=== PATIENT | female | born 1970 | race Caucasian/White ===

== ENCOUNTER 2020-05-30 09:15 | Outpatient (REF) | payer MEDICARE, OTHER, SELFPAY ==
--- NOTE | ~2020-05-30 | MM_ITS ---
EXAMINATION: MM SCREENING DIGITAL BREAST TOMOSYNTHESIS, BILATERAL CLINICAL INFORMATION: Screening. Asymptomatic. The lifetime risk of breast cancer based on the Tyrer-Cuzick Model is 17%. COMPARISON: Outside mammography: 03/04/2017, 02/18/2015, 02/13/2014 ([facility]). TECHNIQUE: Digital breast tomosynthesis is performed in both the craniocaudal and mediolateral oblique views along with computer-aided detection (CAD). Synthesized 2D images are generated from the tomosynthesis. FINDINGS: There are scattered areas of fibroglandular density (ACR BI-RADS breast composition Category b). Parenchymal pattern is similar to prior outside exams. There are no significant masses, abnormal calcifications, or other abnormalities. No developing density. No significant changes. MM/MM tomosynthesis screening BI IMPRESSION: No mammographic evidence of malignancy. ASSESSMENT: BI-RADS 1: Negative RECOMMENDATION: Routine annual mammography screening. This patient's information was entered into a reminder system with a target due date for their next mammogram.
== END 2020-05-30 09:16 | disposition home or self-care (01) ==
LOC: HO.MAMMO 09:15
PROVIDERS: PCP Internal Medicine; Visit Provider Internal Medicine
DX: Z12.31 Encounter for screening mammogram for malignant neoplasm of breast (principal)
CPT/HCPCS: 77063; 77067

== ENCOUNTER → 2020-08-29 08:14 | Outpatient (BNVA) | payer OTHER, SELFPAY | PROVIDERS: PCP Internal Medicine; Referring Provider Internal Medicine; Visit Provider Physician Assistant | DX: K59.09 Other constipation (principal); R74.01 Elevation of levels of liver transaminase levels; R10.11 Right upper quadrant pain | CPT/HCPCS: 99202 ==

== ENCOUNTER 2020-10-29 12:32 | Outpatient (REF) | payer MEDICARE, MEDICAID, SELFPAY ==
--- NOTE | ~2020-10-29 | US_ITS ---
EXAMINATION: US ABDOMEN COMPLETE CLINICAL INFORMATION: Right upper quadrant pain. COMPARISON: CT abdomen 09/06/2006. TECHNIQUE: Real-time imaging of the abdominal viscera. FINDINGS: PANCREAS: Normal. ABDOMINAL AORTA: The proximal, mid, and distal segments are normal in caliber. INFERIOR VENA CAVA: Visualized portions are normal. LIVER: The liver is normal in size. The liver contour is normal. There is slightly increased liver echogenicity. No focal hepatic lesion. There is no intrahepatic biliary duct dilatation seen. GALLBLADDER: Gallbladder wall thickness measures 0.21 cm The gallbladder is physiologically distended without evidence of stones, sludge, polyps, wall thickening or pericholecystic fluid. COMMON BILE DUCT: Normal in caliber measuring 0.3 cm in diameter. RIGHT KIDNEY: There is a mild dilated right ureter. No hydronephrosis. No renal calculi or focal parenchymal lesions. The kidney measures 10.7 cm in maximum dimension. LEFT KIDNEY: There is anechoic septated cyst in the midpole measuring 0.90 x 1.1 x 1.1 cm. No hydronephrosis or renal calculi. The kidney measures 10.1 cm in maximum dimension. SPLEEN: Normal. The spleen measures 9.7 cm in maximum dimension. FREE FLUID: None. US/US abdomen complete IMPRESSION: Mild hepatic steatosis without focal lesion seen. Mildly dilated ureter but no obstructive etiology seen on the scan. Septated cyst midpole left kidney
== END 2020-10-29 12:33 | disposition home or self-care (01) ==
LOC: HO.HMGCX 12:32
PROVIDERS: Visit Provider Internal Medicine
DX: R10.11 Right upper quadrant pain (principal)
CPT/HCPCS: 76700

== ENCOUNTER 2020-11-11 08:57 | Day surgery (SDC) | payer MEDICARE, MEDICAID, SELFPAY ==
[2020-11-06 13:17] VITALS: BMI 20.9
--- NOTE | 2020-11-08 12:04 | P.CONAN_ITS ---
Documented by User: Maritza Montes NP 11/08/20 12:04 HPI - Anesthesia Eval Consult details Narrative: 50yo F for Colonoscopy PMFSH Active Problems Active Problems: All Active Problems (Updated 10/07/20 @ 11:34 by Ema Sexton RN) Encounter for screening colonoscopy (Acute) Chronic constipation (Acute) Past Medical History Medical History Anxiety Family History Family History Father Pancreatic cancer Surgical History Surgical History History of esophagogastroduodenoscopy (EGD) Hx of appendectomy Social History Social History Household Members Other:: - 2 kids Alcohol intake: never Patient Tobacco Use Status: Never used Tobacco Advance Directives Information Provided: No Current occupational status: disabled [employer] Allergies Allergy/AdvReac Type Severity Reaction Status Date / Time No Known Allergies Allergy Verified 08/29/20 08:28 Home Medications Medication Instructions Recorded Confirmed Last Taken Type bupropion HCl 300 mg 24 hr tablet, 300 mg PO QAM 08/29/20 11/06/20 Unknown History extended release inhalational spacing device #1 ea 08/29/20 08/29/20 Unknown History lorazepam 1 mg tablet 1 mg PO BID 08/29/20 11/06/20 Unknown History risperidone 1 mg tablet 1 mg PO BEDTIME 08/29/20 11/06/20 Unknown History Exam Exam Date and Time: November 08, 2020 1204 Height,Weight and Vital Signs: Height 5 ft 4 in Weight 55.338 kg Assessment and Plan Assessment Anesthesia Assessment: Chart Reviewed Documented by User: Leticia Hope MD 11/11/20 09:57 PMFSH Past Medical History Medical History Anxiety Family History Family History Father Pancreatic cancer Family history of problems with anesthesia: No Surgical History Surgical History History of esophagogastroduodenoscopy (EGD) Hx of appendectomy History of Problems with Anesthesia: No Social History Social History Household Members Other:: - 2 kids Alcohol intake: never Patient Tobacco Use Status: Never used Tobacco Advance Directives Information Provided: No Current occupational status: disabled Meds Allergies Allergy/AdvReac Type Severity Reaction Status Date / Time No Known Allergies Allergy Verified 08/29/20 08:28 Home Medications Medication Instructions Recorded Confirmed Last Taken Type bupropion HCl 300 mg 24 hr tablet, 300 mg PO QAM 08/29/20 11/06/20 Unknown History extended release inhalational spacing device #1 ea 08/29/20 08/29/20 Unknown History lorazepam 1 mg tablet 1 mg PO BID 08/29/20 11/06/20 Unknown History risperidone 1 mg tablet 1 mg PO BEDTIME 08/29/20 11/06/20 Unknown History Exam Height,Weight and Vital Signs: Height 5 ft 4 in Weight 55.338 kg Vital Signs Temp Pulse Resp BP Pulse Ox 11/11/20 09:18 97.1 F 63 16 118/71 100 Airway Mallampati Class: II TM Dist: >3cm Neck ROM: Full Heart: RRR Lungs: CTAB Assessment and Plan Assessment Anesthesia Assessment: Anesthesia Plan Discussed Final Anesthetic Review Family History of Problems with Anesthesia: No History of Problems with Anesthesia: No NPO: Yes ASA Class: II Final Preanesthetic Review: No Changes in Pt Med Stat, Meds/Allgs Chart Reviewed, Consent Obtained/Reviewed and Anes Risks/Benef Reviewed Patient Risk: Low Procedure Risk: Low Assessment/Block/Sedation in SS: Assess/Block/Sedation-SS Anesthetic Plan Anesthetic Plan: MAC: Disposition: Standard PACU
[2020-11-11 09:03] VITALS: BMI 19.7
[2020-11-11 09:18] VITALS: BP 118/71; PULSE 63; RESP 16; TEMP 36.2; O2SAT 100
--- NOTE | 2020-11-11 09:30 | MHC.SHP ---
Pre-Procedural Eval Section A Date of Service: 11/11/20 The patient is an INPATIENT: No The History & Physical has been completed within 30 days and I have reviewed it.: No Section B Chief Complaint: Screening Details of Present Illness: Colon cancer screening, chronic constipation Relevant Family History (Specify if Yes): Yes Relevant Social History: None Present Medications: see Short Stay Collaborative assessment Medical History: Significant History (Chronic constipation, anxiety) History of Previous Operations: Relevant previous surgery/procedure and date(s) (Status post appendectomy, hx of EGD) Allergies: Allergies Allergy/AdvReac Type Severity Reaction Status Date / Time No Known Allergies Allergy Verified 08/29/20 08:28 Review of Systems Sugical H&P ROS: Negative: Constitution, Cardiovascular and Respiratory and Yes, Specify: Gastrointestinal (chronic constipation) Exam Surgical H&P Exam: Normal: Heart, Normal: Lungs, Normal: Extremities and Normal: Abdomen Plan Diagnosis/Plan: Unchanged I have reviewed the history and physical and performed a pertinent physical examination on my patient. No changes have occurred unless specified.
--- NOTE | 2020-11-11 09:36 | P.OP_ITS ---
Operative Note Operative Note Date of Service: 11/11/20 Narrative: Pre-op diagnosis:?Colon cancer screening, chronic constipation Post-op diagnosis:?other (Diverticulosis) Procedure:? COLONOSCOPY TILL CECUM Consent: Indications for the procedure and potential complications of bleeding, perforation, reaction to medications and missed diagnosis were discussed with the patient and informed consent was obtained. Instrument: Olympus PCF H 190 L variable stiffness pediatric colonoscope Monitoring: Vital signs and clinical assessment, intermittent blood pressure monitoring, continuous EKG monitoring, Pulse oximetry and Carbon Dioxide monitoring were done throughout the procedure. Colon withdrawl time was 12 minutes. Procedure: The patient was placed in the left lateral decubitis position and pre-procedure medications were administered. After a digital rectal examination of the ano-rectum, the video colonoscope was inserted into the rectum and advanced through the colon to the cecum. The colonoscope was slowly withdrawn in a retrograde panoramic fashion and the colon mucosa was carefully examined including a retroflexed view of the rectum. Findings and interventions are described below. Procedure Difficulty: Without difficulty Findings: Terminal Ileum: Not evaluated Cecum:? Normal Ascending Colon:? Normal Transverse Colon:? Normal Descending Colon:? Normal Sigmoid Colon:? Moderate diverticulosis Rectum:? Normal Ano-rectum:? Perianal skin tags Colon preparation: Excellent ? Impression and Post Procedure Diagnosis: Colonoscopy Findings: No polyps were detected. Moderate diverticulosis seen in the sigmoid colon Plan: Await pathology results Patient has an appointment on 11/27/20 in the [facility] with STEPHANIE Thayer. Repeat Colonoscopy in 10 years. Above findings were reviewed with the patient and diverticulosis handout was given in the discharge area Surgeon:?Melo Benz MD Anesthesia:?MAC (Dr Hope) Was an Professor Of Music used for this Procedure?:?Yes Professor Of Music:?Leslie Landin Estimated blood loss (mL):?0 Pathology:?none sent Condition:?stable Disposition:?PACU
[2020-11-11 10:10] VITALS: BP 101/55; PULSE 67; RESP 12; TEMP 36.4; O2SAT 98
[2020-11-11 10:25] VITALS: BP 107/67; PULSE 60; RESP 16; TEMP 36.4; O2SAT 99
== END 2020-11-11 10:54 | disposition home or self-care (01) ==
PROVIDERS: PCP Internal Medicine; Visit Provider Internal Medicine Gastroenterology
PROC: 0DJD8ZZ Inspection of Lower Intestinal Tract, Via Natural or Artificial Opening Endoscopic (ICD-10-PCS; CPT 45378; principal; 2020-11-11 10:10)
DX: Z12.11 Encounter for screening for malignant neoplasm of colon (principal); K57.30 Diverticulosis of large intestine without perforation or abscess without bleeding; K64.4 Residual hemorrhoidal skin tags; K59.09 Other constipation
CPT/HCPCS: G0121

== ENCOUNTER → 2020-11-27 09:50 | Outpatient (BNVA) | payer MEDICARE, MEDICAID, SELFPAY | PROVIDERS: PCP Internal Medicine; Visit Provider Physician Assistant | CPT/HCPCS: Q3014 ==

== ENCOUNTER 2021-06-05 10:16 | Outpatient (REF) | payer MEDICARE, MEDICAID, SELFPAY ==
--- NOTE | ~2021-06-05 | MM_ITS ---
EXAMINATION: MM SCREENING DIGITAL BREAST TOMOSYNTHESIS, BILATERAL CLINICAL INFORMATION: Screening. Asymptomatic. The lifetime risk of breast cancer based on the Tyrer-Cuzick Model is 6.9%. COMPARISON: Mammography: May 30, 2020 and studies dating back to February 13, 2014 TECHNIQUE: Digital breast tomosynthesis is performed in both the craniocaudal and mediolateral oblique views along with computer-aided detection (CAD). Synthesized 2D images are generated from the tomosynthesis. FINDINGS: There are scattered areas of fibroglandular density (ACR BI-RADS breast composition Category b). There are no significant masses, abnormal calcifications, or other abnormalities. About the deep lateral aspect of the right breast there is a grouping of approximately 4 calcifications which are present on prior study May 30 and 2020 and appear to be vascular in nature. MM/MM tomosynthesis screening BI IMPRESSION: There are no significant changes from prior study. ASSESSMENT: BI-RADS 2: Benign RECOMMENDATION: Routine annual mammography screening. This patient's information was entered into a reminder system with a target due date for their next mammogram.
== END 2021-06-05 10:17 | disposition home or self-care (01) ==
LOC: HO.MAMMO 10:16
PROVIDERS: PCP Internal Medicine; Visit Provider Internal Medicine
DX: Z12.31 Encounter for screening mammogram for malignant neoplasm of breast (principal)
CPT/HCPCS: 77063; 77067

== ENCOUNTER 2022-08-26 12:11 | Outpatient (REF) | payer MEDICARE, MEDICAID, SELFPAY ==
--- NOTE | ~2022-08-26 | XR_ITS ---
EXAMINATION: XR KNEE, RIGHT CLINICAL INFORMATION: Pain COMPARISON: None available. TECHNIQUE: Four views of the right knee. FINDINGS: No fracture but there is a trace joint effusion. Alignment is anatomic. Joint spaces are maintained. No abnormal soft tissue calcifications. Minor tibial spine spurring. XR/XR knee RT 3V IMPRESSION: Trace joint effusion. No fracture.
== END 2022-08-26 12:12 | disposition home or self-care (01) ==
LOC: HO.HHCX 12:11
PROVIDERS: Visit Provider General Practice
DX: M25.561 Pain in right knee (principal)
CPT/HCPCS: 73562

== ENCOUNTER 2022-09-21 11:53 | Outpatient (REF) | payer MEDICARE, MEDICAID, SELFPAY ==
[2022-09-21 14:22] LABS: MANUAL DIFF FLAG NO
[2022-09-21 14:34] LABS: Basophils Percent Auto 0.7 % (0-2); Eosinophils Absolute Auto 0.1 X10*3/uL (0.0-0.4); Eosinophils Percent Auto 0.9 % (0-4); Hematocrit 35.8 % (37.0-47.0); Hemoglobin 11.9 g/dl (12.0-16.0); Imm Gran Abs Auto 0.02 X10*3/uL (0.00-0.03); Imm Gran Pct Auto 0.4 % (0.0-0.4); Lymphocytes Absolute Auto 1.3 X10*3/uL (1.2-4.9); Lymphocytes Percent Auto 23.4 % (20-40); Mean Corpuscular HGB Conc 33.2 g/dl (31.0-35.0); Mean Corpuscular Volume 90.2 fL (80.0-98.0); Mean Platelet Volume 9.1 fL (9.4-12.3); Monocytes Absolute Auto 0.4 X10*3/uL (0.1-1.2); Monocytes Percent Auto 7.3 % (2-11); Neutrophils Absolute Auto 3.7 x10*3/uL (2.0-8.3); Neutrophils Percent Auto 67.3 % (45-73); Platelet Count 319 X10*3/uL (160-400); Red Blood Count 3.97 X10*6/uL (4.20-5.50); Red Cell Distribution Width 12.7 % (11.0-16.0); White Blood Count 5.5 X10*3/uL (4.8-10.8)
[2022-09-21 15:19] LABS: Estimated Average Glucose 103 mg/dL; Hemoglobin A1c % 5.2 %
[2022-09-21 15:46] LABS: Alanine Aminotransferase 17 U/L (0-31); Albumin Level 4.5 g/dL (3.5-5.0); Alkaline Phosphatase 65 U/L (39-117); Anion Gap 14 (12-20); Aspartate Amino Transferase 16 U/L (5-31); Bilirubin Total 1.2 mg/dL (0.0-1.0); Blood Urea Nitrogen 12 mg/dL (9-16); Calcium 9.4 mg/dL (8.4-10.2); Carbon Dioxide 23 mmol/L (22-29); Chloride 104 mmol/L (96-108); Cholesterol 214 mg/dL; Estimated Glomerular Filt Rate > 60; Glucose Fasting 81 mg/dL (60-99); HDL Cholesterol 81 mg/dL; LDL Cholesterol Calculated 116 mg/dl; Potassium 4.1 mmol/L (3.3-5.1); Sodium 137 mmol/L (135-145); Total Protein 7.7 g/dL (6.5-8.0); Triglycerides 88 mg/dL
[2022-09-21 15:52] LABS: TSH reflex Free T4 0.28 uIU/mL (0.32-4.0)
[2022-09-21 15:59] LABS: Folate 15.4 ng/mL (> or = 4.0); Vitamin B12 411 pg/mL (200-900)
[2022-09-21 16:22] LABS: Free T4 (Free Thyroxine) 0.82 ng/dL (0.71-1.85)
[2022-09-24 15:47] LABS: HCV Log PCR <1.18 NOT DETECTED Log IU/mL (NOT DETECTED); HepC Viral Load <15 NOT DETECTED IU/mL (NOT DETECTED)
== END 2022-09-21 11:54 | disposition home or self-care (01) ==
LOC: HO.CHCLDS 11:53
PROVIDERS: Visit Provider Internal Medicine
DX: Z00.00 Encounter for general adult medical examination without abnormal findings (principal); R53.83 Other fatigue; R42 Dizziness and giddiness
CPT/HCPCS: 36415; 80053; 80061; 82306; 82607; 82746; 83036; 84439; 84443; 85025; 87522

== ENCOUNTER 2022-10-02 09:07 | Outpatient (AMB) | payer MEDICARE, MEDICAID, SELFPAY ==
--- NOTE | 2022-10-02 09:15 | A.OFFVIS_ITS ---
Intake Vital Signs 10/02/22 09:25 Height 5 ft 2 in Weight 140 lb BMI 25.6 BP 132/80 Blood Pressure Location Lt brachial Position Sitting Intake Visit Reasons: Lipoma of right axilla Intake Note: Patient is seen in office for evaluation and treatment of a lipoma of the right axilla. Patient c/o: lump was removed in 2014 and 5 months later it came back, denies pain, discharge, redness, or any discomfort, did not go back after excision unsure what it was Fire Observer Required: No Accompanied by: Self / Same As Patient Allergies No Known Allergies Allergy (Verified 10/02/22 09:25) Medication List - Last Reconciled 10/02/22 by Franklin Blanco MD bupropion HCl 300 mg PO QAM docusate sodium (Colace) 200 mg (2 x 100 mg) PO BEDTIME docusate sodium (Colace) 200 mg (2 x 100 mg) PO BEDTIME inhalational spacing device As directed lorazepam 1 mg PO BID methylcellulose (laxative) (Citrucel) 500 mg PO BID methylcellulose (laxative) (Citrucel) 500 mg PO BID polyethylene glycol 3350 (Miralax) 17 grams PO DAILY risperidone 1 mg PO BEDTIME HPI HPI Comments History of Present Illness Details 52-year-old female patient presenting for evaluation of a right axillary lipoma. She reports a prior excision in 2014 but reports that the lesion quickly returned. She denies any significant pain, redness, or discharge from the site. The lesion has been gradually increasing in size there for she is requesting re-excision. [facility] Medical History Anxiety Surgical History History of esophagogastroduodenoscopy (EGD) Hx of appendectomy Hx of colonoscopy Family History Father Pancreatic cancer Mother Ovarian cancer Social History Household Members Other:: - 2 kids Alcohol intake: never Patient Tobacco Use Status: Never used Tobacco Current occupational status: disabled Review of Systems Const All systems reviewed & are unremarkable except as noted in HPI and below Denies chills, Denies fever(s), Denies headache(s), Denies poor appetite and Denies weakness ENT Denies headache(s) Card Denies chest pain, Denies irregular heart rhythm, Denies palpitations and Denies dyspnea Resp Denies cough, Denies excessive phlegm production and Denies dyspnea GI Denies abdominal pain, Denies bloating, Denies change in bowel habits, Denies constipation, Denies heartburn, Denies diarrhea, Denies nausea and Denies vomiting Denies urinary frequency Musc Denies back pain, Denies muscle weakness and Denies numbness Skin/Breast Denies changing lesions and Denies unusual bruising Neuro Denies headache(s), Denies numbness, Denies paresthesias and Denies weakness Psych Denies anxiety and Denies depression Endo Denies palpitations Kendrick/Lymph Denies lymphadenopathy Physical Exam Vital Signs: Last Vital Signs BP 132/80 10/02/22 09:25 BMI result Body Mass Index 25.6 Const General: cooperative and no acute distress Nutritional Appearance: well nourished Orientation/consciousness: patient oriented x3 Limitations: no limitations HEENT Head: Yes normocephalic and Yes atraumatic Ears: hearing grossly normal bilaterally Chest Other: Palpable subcutaneous density noted in the right axilla in the posterior axillary line. There is a previous incision just below the palpable lesion. The cyst measures 2 x 1.5 cm and is smooth and mobile in the subcutaneous tissue suggestive of a epidermal inclusion cyst. There is no tenderness or discharge to palpation. Resp Effort & Inspection: normal respiratory effort, no audible wheezes, no cough and no respiratory distress Cardio Jugular venous distension: no JVD GI Inspection: Yes normal to inspection Skin Other: Warm, dry, no rash Neuro General: patient oriented x3 Extrem General: Yes no clubbing, cyanosis or edema Assessment & Plan Assessment & Plan (1) Epidermal inclusion cyst: Code(s): L72.0 - Epidermal cyst Plan 52-year-old female patient presenting with a palpable lesion in the right axilla at the site of a previous lipoma excision. On examination today there is a 2 x 1.5 cm smooth mobile lesion suggestive of an epidermal inclusion cyst. I recommended an excision as a minor surgery under local anesthesia. After discussion of the procedure, risks, and alternatives, she consents to the surgery. Coding Level of Care Code New Pt Level 4 (60532) Diagnoses Epidermal inclusion cyst L72.0
[2022-10-02 09:25] VITALS: BP 132/80; BMI 25.6
== END 2022-10-02 09:37 | disposition home or self-care (01) ==
PROVIDERS: PCP Internal Medicine; Referring Provider Internal Medicine; Visit Provider Surgery
DX: L72.0 Epidermal cyst (principal); D17.21 Benign lipomatous neoplasm of skin and subcutaneous tissue of right arm
CPT/HCPCS: 99204

== ENCOUNTER → 2022-10-02 09:07 | Outpatient (BNVA) | payer MEDICARE, MEDICAID, SELFPAY | PROVIDERS: PCP Internal Medicine; Referring Provider Internal Medicine; Visit Provider Surgery | DX: L72.0 Epidermal cyst (principal) | CPT/HCPCS: 99202 ==

== ENCOUNTER 2022-10-20 10:55 | Outpatient (REF) | payer MEDICARE, MEDICAID, SELFPAY ==
[2022-10-20 11:07] VITALS: BP 104/80; PULSE 75; RESP 16; TEMP 37; O2SAT 99; BMI 24.0
[2022-10-20 11:54] VITALS: BP 119/70; PULSE 72; RESP 16; O2SAT 100
--- NOTE | 2022-10-20 12:29 | P.OP_ITS ---
Operative Note Operative Note Date of Service: 10/20/22 Narrative: Preoperative diagnosis: Right axillary cyst Postoperative diagnosis: Same Procedure: Excision of right axillary cyst Surgeon: Franklin Blanco MD Corner Brace Block Machine Operator: None Anesthesia: Local Indications for procedure: 52-year-old female patient presenting with a round palpable cyst in the right axilla which is increasing in size measuring approximately 1.5 cm in diameter. Operative findings: 1.5 cm epidermal inclusion cyst right axilla Specimen: Epidermal inclusion cyst right axilla Estimated blood loss: Less than 2 mL Complications: None Procedure details: Patient was brought to the minor surgery suite placed in a supine position with her right arm over her head. The site of surgery was confirmed by the patient in the right axilla. After assuring informed consent the skin was prepped with Betadine and draped in a sterile fashion. Local anesthesia was then infiltrated circumferentially around the lesion. An elliptical incision oriented transversely was then created with a 15 blade. This was then carried out through subcutaneous tissue and around the cyst wall. The lesion was then sharply dissected from the surrounding subcutaneous tissue. This was then passed off the table and sent to pathology for further examination. Hemostasis assured using light pressure. The dermis was reapproximated using interrupted 3-0 Polysorb sutures. Skin was then closed using interrupted 4-0 nylon sutures. 2 x 2 gauze and Tegaderm were then applied. The patient tolerated the procedure well. She was discharged home in stable condition.
== END 2022-10-20 10:56 | disposition home or self-care (01) ==
LOC: HO.MS 10:55
PROVIDERS: PCP Internal Medicine; Visit Provider Surgery
PROC: (CPT 11402; principal; 2022-10-20 11:20)
DX: L72.8 Other follicular cysts of the skin and subcutaneous tissue (principal)
CPT/HCPCS: 11402; 88304

== ENCOUNTER → 2022-10-20 10:55 | Outpatient (BNV) | payer MEDICARE, MEDICAID, SELFPAY | PROVIDERS: PCP Internal Medicine; Visit Provider Surgery | DX: L72.0 Epidermal cyst (principal) | CPT/HCPCS: 11402 ==

== ENCOUNTER 2022-10-30 11:00 | Outpatient (AMB) | payer MEDICARE, MEDICAID, SELFPAY ==
--- NOTE | 2022-10-30 11:11 | A.OFFVIS_ITS ---
Intake Vital Signs 10/30/22 11:16 Height 5 ft 4 in Weight 139 lb 2 oz BMI 23.9 BP 126/78 Blood Pressure Location Lt brachial Position Sitting Pulse 68 Intake Visit Reasons: S/P excision Rt axillary cyst Intake Note: Patient is seen in office for post op assessment post excision of right axillary cyst. Patient c/o: denies any concerns, healing as expected Family And Consumer Education Teacher Required: No Accompanied by: Self / Same As Patient Allergies No Known Allergies Allergy (Verified 10/30/22 11:16) Medication List - Last Reconciled 10/30/22 by Franklin Blanco MD bupropion HCl 300 mg PO QAM docusate sodium (Colace) 200 mg (2 x 100 mg) PO BEDTIME docusate sodium (Colace) 200 mg (2 x 100 mg) PO BEDTIME inhalational spacing device As directed lorazepam 1 mg PO BID methylcellulose (laxative) (Citrucel) 500 mg PO BID methylcellulose (laxative) (Citrucel) 500 mg PO BID polyethylene glycol 3350 (Miralax) 17 grams PO DAILY risperidone 1 mg PO BEDTIME HPI HPI Comments History of Present Illness Details 52-year-old female patient returning 1 w [place] following excision of a epidermal inclusion cyst of the right axilla. She tolerated the procedure well and denies any ongoing symptoms. She returns today for suture removal. Pathology confirmed an epidermal inclusion cyst. [facility] Medical History Anxiety Surgical History H/O removal of cyst (10/20/22) Hx of colonoscopy History of esophagogastroduodenoscopy (EGD) Hx of appendectomy Family History Father Pancreatic cancer Mother Ovarian cancer Social History Household Members Other:: - 2 kids Alcohol intake: never Patient Tobacco Use Status: Never used Tobacco Current occupational status: disabled Physical Exam Vital Signs: Last Vital Signs Pulse 68 10/30/22 11:16 BP 126/78 10/30/22 11:16 BMI result Body Mass Index 23.9 Const General: cooperative Nutritional Appearance: average body habitus Orientation/consciousness: oriented to person Limitations: no limitations Chest Other: Excision site in right axilla posterior is clean, dry, and intact without redness or discharge. Sutures removed and wounds found to be well healed. Skin Other: Warm, dry, no rash Neuro General: oriented to person Extrem General: Yes no clubbing, cyanosis or edema Assessment & Plan Assessment & Plan (1) Epidermal inclusion cyst: Code(s): L72.0 - Epidermal cyst Plan 52-year-old female patient returning 1 week following excision of epidermal inclusion cyst of the right axilla. She tolerated the procedure well the wounds are healing nicely. She should follow up as needed. Coding Level of Care Code Global (38318) Diagnoses Epidermal inclusion cyst L72.0
[2022-10-30 11:16] VITALS: BP 126/78; PULSE 68; BMI 23.9
== END 2022-10-30 11:27 | disposition home or self-care (01) ==
PROVIDERS: PCP Internal Medicine; Visit Provider Surgery
DX: L72.0 Epidermal cyst (principal)
CPT/HCPCS: 99024

== ENCOUNTER → 2022-10-30 11:00 | Outpatient (BNVA) | payer MEDICARE, MEDICAID, SELFPAY | PROVIDERS: PCP Internal Medicine; Visit Provider Surgery ==

== ENCOUNTER 2022-11-24 14:44 | Outpatient (REF) | payer MEDICARE, MEDICAID, SELFPAY | END 2022-11-24 14:45 | disposition home or self-care (01) | LOC: HO.HHCX 14:44 | PROVIDERS: Visit Provider Nurse Practitioner Family | DX: R05.9 Cough, unspecified (principal) | CPT/HCPCS: 71046 ==

== ENCOUNTER 2023-03-17 07:15 | Outpatient (REF) | payer MEDICARE, MEDICAID, SELFPAY | END 2023-03-17 07:16 | disposition home or self-care (01) | LOC: HO.MAMMO 07:15 | PROVIDERS: PCP Internal Medicine; Visit Provider Internal Medicine | DX: Z12.31 Encounter for screening mammogram for malignant neoplasm of breast (principal) | CPT/HCPCS: 77063; 77067 ==

== ENCOUNTER → 2023-03-17 07:45 | Outpatient (BNV) | payer MEDICARE, MEDICAID, SELFPAY | PROVIDERS: PCP Internal Medicine; Visit Provider Radiology Diagnostic Radiology | DX: Z12.31 Encounter for screening mammogram for malignant neoplasm of breast (principal) | CPT/HCPCS: 77063; 77067 ==

== ENCOUNTER 2023-03-29 12:26 | Emergency (ER) | payer MEDICARE, MEDICAID, SELFPAY ==
[2023-03-29 12:45] VITALS: BP 132/83; PULSE 79; RESP 16; TEMP 36.3; O2SAT 99; BMI 26.7
--- NOTE | 2023-03-29 12:47 | ED_ITS ---
HPI - General Adult General Chief complaint: Nausea/Vomiting/Diarrhea Stated complaint: nausea 4xdays Time Seen by Provider: 03/29/23 23:58 Source: patient Mode of arrival: ambulatory History of Present Illness HPI narrative: 52-year-old female who has a history of fibromyalgia presents with 2 weeks epigastric discomfort that she states resolves briefly with taking Mylanta but then recurs again, patient states that over the past 4 days she has had some associated nausea but denies any vomiting and as per the triage note there has been a diarrheal episode on and Wednesday but this has completely resolved. Patient also reports that she has had some pain in the right upper portion of her abdomen although this is not currently present. Related Data Home Medications Medication Instructions Recorded Confirmed bupropion HCl 300 mg 24 hr tablet, 300 mg PO QAM 08/29/20 10/30/22 extended release inhalational spacing device #1 ea 08/29/20 10/30/22 lorazepam 1 mg tablet 1 mg PO BID 08/29/20 10/30/22 risperidone 1 mg tablet 1 mg PO BEDTIME 08/29/20 10/30/22 Previous Rx's Medication Instructions Recorded docusate sodium 100 mg capsule 200 mg (2 x 100 mg) PO BEDTIME #60 08/29/20 (Colace) caps methylcellulose (laxative) 500 mg 500 mg PO BID #60 tabs 08/29/20 tablet (Citrucel) docusate sodium 100 mg capsule 200 mg (2 x 100 mg) PO BEDTIME #60 11/27/20 (Colace) caps methylcellulose (laxative) 500 mg 500 mg PO BID #60 tabs 11/27/20 tablet (Citrucel) polyethylene glycol 3350 17 gram 17 g PO DAILY #30 ea 11/27/20 oral powder packet (Miralax) omeprazole 40 mg capsule,delayed 40 mg PO DAILY 30 days #30 caps 03/30/23 release Allergies Allergy/AdvReac Type Severity Reaction Status Date / Time No Known Allergies Allergy Verified 03/29/23 12:47 Review of Systems 2 Review of Systems: Pertinent positives and negatives as stated in HPI [facility] Past Medical History Source: nursing notes reviewed Medical History Anxiety Surgical History H/O removal of cyst (10/20/22) Hx of colonoscopy History of esophagogastroduodenoscopy (EGD) Hx of appendectomy Family History Family History Father Pancreatic cancer Mother Ovarian cancer Social History Social History Household Members Other:: - 2 kids Alcohol intake: never Patient Tobacco Use Status: Never used Tobacco Advance Directives: No Current occupational status: disabled Physical Exam ED Vital Signs: Vital Signs - 24 hr 03/29/23 12:45 03/29/23 19:18 Temperature 97.3 F 97.8 F Pulse Rate 79 86 Respiratory Rate 16 20 Blood Pressure 132/83 134/93 H Pulse Oximetry 99 97 Oxygen Delivery Method Room Air Room Air BMI result Body Mass Index 26.7 VITAL SIGNS: Reviewed. GENERAL: Well developed, well nourished, in no acute distress. HEAD: Normocephalic/atraumatic EYES: PERRLA, EOMI EARS: Ext canals without abnormality NOSE: Nares patent bilateral OROPHARYNX: no oral lesions noted, posterior pharynx clear NECK: Supple, no adenopathy LUNGS: Normal breath sounds. No adventitious sounds or accessory muscle use. SpO2<97> CARDIOVASCULAR: Regular rate and rhythm without noted murmurs ABDOMEN: Soft, no right upper quadrant pain, Sharif's is negative, no abdominal pain elicited, non-distended with bowel sounds. MUSCULOSKELETAL: No tenderness, deformities, or effusions noted on gross inspection. EXTREMITIES: No cyanosis, clubbing or edema. SKIN: Inspection of the skin reveals no rashes NEUROLOGIC: Alert and oriented x 4. Strength and sensation to light touch were grossly intact x 4. Course Course Course Narrative: RME performed by Rochelle Chacon PA-C. Patient is a 52 year old assigned female at presenting to the emergency department with nausea, vomiting, and abdominal pain. Detailed physical exam and review of systems are deferred to the administrative job titles. Labs ordered. Patient placed back in the waiting room pending room availability and results. Medical Decision Making Medical Decision Making MDM Narrative: 52-year-old female with history and clinical presentation, DDX: Gastritis, acid reflux, dyspepsia, viral illness, no clinical suspicion for cholecystitis/appendicitis, possibility of UTI but doubt. I reviewed all investigations and hematologic indices are negative for leukocytosis or left shift, there is no anemia or thrombocytopenia. Chemistry indices do not demonstrate an ZAKIYA and there is no electrolyte or liver enzyme derangements, high sensitivity troponin that was ordered is noted to be undetectable. Urinalysis does demonstrate presence of blood but no wbc's or bacteria is noted. Patient denies any dysuria. Viral testing negative for COVID-19/influenza. My interpretation is that patient is likely experiencing nausea associated with gastritis as patient does get relief of her symptoms with taking Mylanta. She was provided with a GI cocktail and Carafate here in the emergency room and discharged with a script to start omeprazole and instructed to follow-up with her primary care doctor. Differential Diagnosis Differential Diagnoses: The differential diagnosis associated with the presentation includes Please see the discussion above Admission/Observation Consideration of admission/observation: Escalation of care including admission/observation considered Please see the discussion above Lab Data MDM Lab Attestation statement: I reviewed the patient's lab results. Please see the discussion above 03/29/23 13:12 03/29/23 13:12 Labs: Lab Results 03/29/23 03/29/23 Range/Units 13:12 19:25 WBC 4.6 L (4.8-10.8) X10*3/uL RBC 4.52 (4.20-5.50) X10*6/uL Hgb 13.4 (12.0-16.0) g/dl Hct 40.1 (37.0-47.0) % MCV 88.7 (80.0-98.0) fL MCH 29.6 (27.0-33.0) pg MCHC 33.4 (31.0-35.0) g/dl RDW 12.5 (11.0-16.0) % Plt Count 352 (160-400) X10*3/uL MPV 8.6 L (9.4-12.3) fL Immature Gran % (Auto) 0.2 (0.0-0.4) % Neut % (Auto) 62.7 (45-73) % Lymph % (Auto) 26.9 (20-40) % Bureau % (Auto) 8.2 (2-11) % Eos % (Auto) 1.1 (0-4) % Baso % (Auto) 0.9 (0-2) % Lymph # (Auto) 1.2 (1.2-4.9) X10*3/uL Bureau # (Auto) 0.4 (0.1-1.2) X10*3/uL Eos # (Auto) 0.1 (0.0-0.4) X10*3/uL Baso # (Auto) 0.0 (0.0-0.2) X10*3/uL Abs Immat Gran (auto) 0.01 (0.00-0.03) X10*3/uL Absolute Neuts (auto) 2.9 (2.0-8.3) x10*3/uL Absolute Nucleated RBC 0.000 (0.0-0.012) X10*3/uL Nucleated RBC % (auto) 0.0 (0.0-0.2) /100WBC Sodium 140 (135-145) mmol/L Potassium 3.4 (3.3-5.1) mmol/L Chloride 106 (96-108) mmol/L Carbon Dioxide 26 (22-29) mmol/L Anion Gap 11 L (12-20) BUN 12 (9-16) mg/dL Creatinine 0.74 (0.5-1.4) mg/dL Estim Creat Clear Calc 83.7 Estimated GFR > 60 Random Glucose 91 (60-115) mg/dL Calcium 10.0 D (8.4-10.2) mg/dL Magnesium 2.2 (1.6-2.6) mg/dL Total Bilirubin 0.7 (0.0-1.0) mg/dL AST 15 (5-31) U/L ALT 12 (0-31) U/L Alkaline Phosphatase 77 (39-117) U/L Troponin I High Sens < 2.7 (<3.5-17.0) ng/L Total Protein 8.2 H (6.5-8.0) g/dL Albumin 4.7 (3.5-5.0) g/dL Urine Color Yellow Urine Appearance Clear Urine pH 6.0 (5.0-9.0) Ur Specific [place] 1.010 (1.005-1.025) Urine Protein Negative (Neg-Trace) mg/dL Urine Glucose (UA) Negative (Negative) mg/dL Urine Ketones Negative (Negative) mg/dL Urine Blood Moderate (2+) H (Negative) Urine Nitrite Negative (Negative) Ur Leukocyte Esterase Negative (Negative) Urine RBC >20 H (0-2) /HPF Urine WBC 0-5 (0-5) /HPF Ur Squamous Epith Cells 0-2 (0-2) /HPF Urine Bacteria None Seen (None Seen) Hyaline Casts 0-2 (0-2) /LPF COVID-19 (CARLITO) Negative (Negative) COVID-19 Clin Com See Note Influenza Type A (MOMO) Negative (Negative) Influenza Type B (MOMO) Negative (Negative) Influenza A & B Note See Note Independent Interpretation I performed an independent interpretation of an: EKG Interpretation: Normal sinus rhythm, HR-76, no STEMI, OH/QRS/QTC is within normal limits External Record Review External record reviewed: Outpatient record, Prior outpatient labs and Prior outpatient radiology Chronic Conditions Patient?s care impacted by: Other Fibromyalgia Critical Care Time Critical Care Time Critical Care Time: Yes Total Critical Care Time: 30 Attestation: I personally attest to this time spent taking care of the patient. Discharge Plan Discharge Clinical Impression: Gastritis, Dyspepsia Patient Disposition: Home, Self-Care Instructions: Gastritis (ED), Diet for Stomach Ulcers and Gastritis (ED) Additional Instructions: 1. Reanudar todos los medicamentos caseros seg?n lo recetado. 2. Le he dado lucía nueva receta para ayudar a controlar la producci?n de ?cido. Le recomiendo que cambie daigle dieta para ayudar a reducir la cantidad de producci?n de ?cido. 3. Llame al consultorio de daigle m?dico de atenci?n primaria el mi?rcoles por la ma?cosmo para programar lucía erik para lucía reevaluaci?n. Regrese a la abby de emergencias si los s?ntomas empeoran. 1. Resume all home medications as prescribed. 2. I have given you a new prescription to help control the acid production, I do recommend that you change your diet to help reduce the amount of acid production. 3. Please call the office of your primary care doctor on Wednesday to set up an appointment for re-evaluation. Return to the ER for any worsening symptoms. Prescriptions: New omeprazole 40 mg capsule,delayed release(DR/EC) 40 mg PO DAILY 30 Days Qty: 30 0RF No Action lorazepam 1 mg tablet 1 mg PO BID bupropion HCl 300 mg tablet extended release 24 hr 300 mg PO QAM risperidone 1 mg tablet 1 mg PO BEDTIME (DME) inhalational spacing device Spacer See Rx Instructions .ROUTE DIRECTED Qty: 1 Rx Instructions: As directed Citrucel 500 mg tablet 500 mg PO BID Qty: 60 5RF docusate sodium [Colace] 100 mg capsule 200 mg PO BEDTIME Qty: 60 5RF Citrucel 500 mg tablet 500 mg PO BID Qty: 60 5RF docusate sodium [Colace] 100 mg capsule 200 mg PO BEDTIME Qty: 60 5RF polyethylene glycol 3350 [Miralax] 17 gram powder in packet 17 g PO DAILY Qty: 30 5RF Referrals: Paul Olivarez MD [Primary Care Provider] - Print Language: Turkish
--- NOTE | 2023-03-29 12:48 | ECG_ITS ---
Test Reason : EPIGASTRIC PAIN Blood Pressure : / mmHG Vent. Rate : 076 BPM Atrial Rate : 076 BPM P-R Int : 146 ms QRS Dur : 080 ms QT Int : 386 ms P-R-T Axes : 042 073 040 degrees QTc Int : 434 ms Normal sinus rhythm Normal ECG When compared to the previous EKG of No significant changes seen Referred By: Rochelle Chacon Electronically Signed By:Darshan Rogers
[2023-03-29 13:16] LABS: MANUAL DIFF FLAG NO
[2023-03-29 13:19] LABS: Basophils Percent Auto 0.9 % (0-2); Eosinophils Absolute Auto 0.1 X10*3/uL (0.0-0.4); Eosinophils Percent Auto 1.1 % (0-4); Hematocrit 40.1 % (37.0-47.0); Hemoglobin 13.4 g/dl (12.0-16.0); Imm Gran Abs Auto 0.01 X10*3/uL (0.00-0.03); Imm Gran Pct Auto 0.2 % (0.0-0.4); Lymphocytes Absolute Auto 1.2 X10*3/uL (1.2-4.9); Lymphocytes Percent Auto 26.9 % (20-40); Mean Corpuscular HGB Conc 33.4 g/dl (31.0-35.0); Mean Corpuscular Hemoglobin 29.6 pg (27.0-33.0); Mean Corpuscular Volume 88.7 fL (80.0-98.0); Mean Platelet Volume 8.6 fL (9.4-12.3); Monocytes Absolute Auto 0.4 X10*3/uL (0.1-1.2); Monocytes Percent Auto 8.2 % (2-11); Neutrophils Absolute Auto 2.9 x10*3/uL (2.0-8.3); Neutrophils Percent Auto 62.7 % (45-73); Platelet Count 352 X10*3/uL (160-400); Red Blood Count 4.52 X10*6/uL (4.20-5.50); Red Cell Distribution Width 12.5 % (11.0-16.0); White Blood Count 4.6 X10*3/uL (4.8-10.8)
[2023-03-29 13:32] LABS: Alanine Aminotransferase 12 U/L (0-31); Albumin Level 4.7 g/dL (3.5-5.0); Alkaline Phosphatase 77 U/L (39-117); Anion Gap 11 (12-20); Aspartate Amino Transferase 15 U/L (5-31); Bilirubin Total 0.7 mg/dL (0.0-1.0); Blood Urea Nitrogen 12 mg/dL (9-16); Carbon Dioxide 26 mmol/L (22-29); Chloride 106 mmol/L (96-108); Creatinine Clr Calc Pharmacy 83.7; Estimated Glomerular Filt Rate > 60; Glucose Random 91 mg/dL (60-115); Magnesium 2.2 mg/dL (1.6-2.6); Potassium 3.4 mmol/L (3.3-5.1); Sodium 140 mmol/L (135-145); Total Protein 8.2 g/dL (6.5-8.0)
[2023-03-29 13:38] LABS: COVID-19 Test Negative (Negative); IDNOW Serial# 08D9AD1C; IDNOW Serial# 152EDE1D; Influenza A Negative (Negative); Influenza B2 Negative (Negative)
[2023-03-29 13:40] LABS: Troponin-I High Sensitivity < 2.7 ng/L (<3.5-17.0)
[2023-03-29 19:18] VITALS: BP 134/93; PULSE 86; RESP 20; TEMP 36.6; O2SAT 97
[2023-03-29 19:36] LABS: Appearance Urine Clear; Color Urine Yellow; Glucose Urine UA Negative (Negative); Leukocyte Esterase Urine Negative (Negative); Nitrite Urine Negative (Negative); UMIC TRIGGER UACC YES; Urine Blood Moderate (2+) (Negative); Urine Ketones Negative (Negative); Urine Protein Negative (Neg-Trace)
[2023-03-29 20:26] LABS: Bacteria Urine None Seen (None Seen); Hyaline Casts Urine 0-2 /LPF (0-2); RBC Urine >20 /HPF (0-2); Squamous Epithelial Cell Urine 0-2 /HPF (0-2); WBC Urine 0-5 /HPF (0-5)
[2023-03-30] MEDS: Magnesium Hydrox/Alum Hydrox 30 ML ORAL.SUSP PO (00:26)
[2023-03-30] MEDS: Lidocaine HCl Viscous 2 % 15 ML SOLUTION 10 ML MUCOUS MEM (00:26)
[2023-03-30] MEDS: Sucralfate Oral Suspension 1 GM/10 ML ORAL.SUSP PO (00:26)
[2023-03-30 00:29] VITALS: BP 132/86; PULSE 66; RESP 16; TEMP 36.6; O2SAT 98
== END 2023-03-30 00:48 | disposition home or self-care (01) ==
PROVIDERS: Physician Assistant Medical; Emergency Provider Student in an Organized Health Care Education/Training Program; PCP Internal Medicine
DX: K29.70 Gastritis, unspecified, without bleeding (principal); K59.89 Other specified functional intestinal disorders; R11.0 Nausea; Z11.52 Encounter for screening for COVID-19; R10.11 Right upper quadrant pain
CPT/HCPCS: 80053; 81001; 83735; 84484; 85025; 87502; 87635; 93005; 99283; 99284

== ENCOUNTER → 2023-03-29 12:48 | Outpatient (BNV) | payer MEDICARE, MEDICAID, SELFPAY | PROVIDERS: PCP Internal Medicine; Visit Provider Internal Medicine Cardiovascular Disease | DX: R10.13 Epigastric pain (principal) | CPT/HCPCS: 93010 ==

== ENCOUNTER 2023-05-03 09:08 | Outpatient (REF) | payer MEDICARE, MEDICAID, SELFPAY ==
[2023-05-03 15:18] LABS: Alanine Aminotransferase 11 U/L (0-31); Albumin Level 4.3 g/dL (3.5-5.0); Alkaline Phosphatase 77 U/L (39-117); Anion Gap 12 (12-20); Aspartate Amino Transferase 13 U/L (5-31); Bilirubin Direct 0.3 mg/dL (0.0-0.5); Bilirubin Total 1.1 mg/dL (0.0-1.0); Blood Urea Nitrogen 8 mg/dL (9-16); Calcium 9.3 mg/dL (8.4-10.2); Carbon Dioxide 23 mmol/L (22-29); Chloride 108 mmol/L (96-108); Estimated Glomerular Filt Rate > 60; Glucose Random 65 mg/dL (60-115); Potassium 3.7 mmol/L (3.3-5.1); Sodium 139 mmol/L (135-145); Total Protein 7.4 g/dL (6.5-8.0)
[2023-05-03 15:26] LABS: TSH reflex Free T4 0.18 uIU/mL (0.32-4.0)
== END 2023-05-03 09:09 | disposition home or self-care (01) ==
LOC: HO.CHCLDS 09:08
PROVIDERS: Visit Provider Internal Medicine
DX: R63.5 Abnormal weight gain (principal)
CPT/HCPCS: 36415; 80048; 80076; 84439; 84443

== ENCOUNTER 2023-06-29 09:49 | Outpatient (AMB) | payer MEDICARE, MEDICAID, SELFPAY ==
--- NOTE | 2023-06-29 09:52 | MHC.OFFVIS ---
Vital Signs 06/29/23 09:57 Height 5 ft 4 in Weight 154 lb BMI 26.4 BP 111/68 Blood Pressure Location Lt brachial Position Sitting Pulse 78 Intake Visit Reasons: epigastric pains Intake Note: Patient follow up fro Epigastric pain Patient cc: nauseas, abdominal pain with bloating, acid reflex with burning sensation on and off, and constipation. [employer] Required: No Accompanied by: Self / Same As Patient Allergies No Known Allergies Allergy (Verified 06/29/23 09:51) Medication List - Last Reconciled 06/29/23 by Spring Melissa PA-C bupropion HCl XL 300 mg PO QAM inhalational spacing device As directed lorazepam 1 mg PO BID omeprazole 40 mg PO DAILY 30 days ondansetron 4 mg PO Q8H risperidone 1 mg PO BEDTIME HPI Comments Details: A 52 y/o female with nausea and epigastric pain for the past 2 months-sx are not daily- she has increased fatigue Went to ED in March- due to vomiting, prescribed omeprazole 40 mg -she has had no further vomiting, she is only taking 2 or sometimes 3 days a week-now has noticed nausea and abdominal pain does feel somewhat better days that she does take PPI. Zofran -tries to hold off however needs it several times a week Appetite is fairly good, some days she does not eat due to the nausea Bowels- ok Abdominal U/S- normal per pt- in [place] She has no vomiting, fever chills. No new medications Colonoscopy up-to-date Dr. Benz [facility] Medical History Anxiety Surgical History H/O removal of cyst (10/20/22) Hx of colonoscopy History of esophagogastroduodenoscopy (EGD) Hx of appendectomy Family History Father Pancreatic cancer Mother Ovarian cancer Social History Household Members Other:: - 2 kids Alcohol intake: never Patient Tobacco Use Status: Never used Tobacco Current occupational status: disabled Review of Systems Const All systems reviewed & are unremarkable except as noted in HPI and below Reports fatigue Card Denies chest pain GI Reports abdominal pain (Epigastric, intermittent), Denies change in stool character, Denies heartburn, Reports nausea and Denies vomiting Endo Reports fatigue Physical Exam Vital Signs: Last Vital Signs Pulse 78 06/29/23 09:57 BP 111/68 06/29/23 09:57 BMI result Body Mass Index 26.4 Const General: cooperative, healthy appearing and comfortable Orientation/consciousness: patient oriented x3 Limitations: no limitations Eyes Sclerae: sclerae normal Resp Effort & Inspection: normal respiratory effort and able to speak in complete sentences Auscultation: clear to auscultation bilaterally Cardio Rate: regular rate Rhythm: regular rhythm Heart sounds: S1 normal heart sound present and S2 normal heart sound present GI Palpation (GI): Soft to palpation and nontender Auscultation: normal bowel sounds Neuro General: patient oriented x3 Extrem General: Yes full ROM Psych Appearance: grossly normal and well kempt Mental Status: mental status grossly normal Speech and movement: Normal speech and movement present Affect: normal affect Attitude: cooperative Thought process: Normal thought process present Thought content: Normal thought content present Insight: Good insight present (Psych) Judgement: Good judgement present (Psych) Results Reviewed Results Reviewed: U/S US/US abdomen complete IMPRESSION: Mild hepatic steatosis without focal lesion seen. Mildly dilated ureter but no obstructive etiology seen on the scan. Septated cyst midpole left kidney Assessment & Plan Assessment & Plan (1) Epigastric pain: Comment: Reviewed labs-enzymes normal Code(s): R10.13 - Epigastric pain Category: Medical Plan: Follow-up PCP-as scheduled, due to other abnormal lab (2) Nausea: Comment: Try to identify culprits Code(s): R11.0 - Nausea Category: Medical Plan: Zofran p.r.n. EGD (3) Acid reflux: Code(s): K21.9 - Gastro-esophageal reflux disease without esophagitis Category: Medical Plan: Reflux precautions Continue PPI EGD Plan EGD with PPI-daily Reflux precautions Patient Instructions: EGD with -discussed procedure rare risks need for escort PPI-daily- Reflux precautions avoid culprits Encouraged to call with questions or concerns Follow-up with PCP as scheduled Coding Level of Care Code New Pt Level 3 (76089) Diagnoses Epigastric pain R10.13 Nausea R11.0 Acid reflux K21.9 Time Spent (min) 30
[2023-06-29 09:57] VITALS: BP 111/68; PULSE 78; BMI 26.4
== END 2023-06-29 11:32 | disposition home or self-care (01) ==
PROVIDERS: PCP Internal Medicine; Visit Provider Physician Assistant
DX: R10.13 Epigastric pain (principal); R11.0 Nausea; K21.9 Gastro-esophageal reflux disease without esophagitis
CPT/HCPCS: 99214

== ENCOUNTER → 2023-06-29 09:49 | Outpatient (BNVA) | payer MEDICARE, MEDICAID, SELFPAY | PROVIDERS: PCP Internal Medicine; Visit Provider Physician Assistant | DX: R10.13 Epigastric pain (principal); R11.0 Nausea; K21.9 Gastro-esophageal reflux disease without esophagitis; Z79.899 Other long term (current) drug therapy | CPT/HCPCS: 99212 ==

== ENCOUNTER 2023-12-20 11:01 | Day surgery (SDC) | payer MEDICARE, MEDICAID, SELFPAY ==
[2023-12-16 13:58] VITALS: BMI 26.4
--- NOTE | 2023-12-20 11:26 | P.HPSUR_ITS ---
Pre-Procedural Eval Section A - 24 Hr Update-Section A only Date of Service: 12/20/23 The patient is an INPATIENT: No Section B - Complete if H&P > 30 days Chief Complaint: GERD, epigastric pain, nausea Relevant Family History (Specify if Yes): No Relevant Social History: None Present Medications: see Short Stay Collaborative assessment Medical History: Significant History (GERD, epigastric pain) History of Previous Operations: Relevant previous surgery/procedure and date(s) (H/O removal of cyst (10/20/22) Hx of colonoscopy History of esophagogastrodu odenoscopy (EGD) Hx of appendectomy) Allergies: Allergies Allergy/AdvReac Type Severity Reaction Status Date / Time No Known Allergies Allergy Verified 06/29/23 09:51 Review of Systems Sugical H&P ROS: Negative: Constitution, Cardiovascular and Respiratory and Yes, Specify: Gastrointestinal (GERD, abd pain) Exam Surgical H&P Exam: Normal: Heart, Normal: Lungs, Normal: Extremities and Normal: Abdomen Plan Diagnosis/Plan: Unchanged I have reviewed the history and physical and performed a pertinent physical examination on my patient. No changes have occurred unless specified. Time Spent With Patient Time: Total time managing care of this patient today ____ minutes.
[2023-12-20 11:34] VITALS: BP 105/69; PULSE 75; RESP 16; TEMP 36.8; O2SAT 98; BMI 26.4
[2023-12-20] MEDS: Lactated Ringers 1,000 ML 80 ML IVCONT (11:42)
--- NOTE | 2023-12-20 11:57 | P.CONAN_ITS ---
HPI - Anesthesia Eval Consult details Narrative: upper endo PMFSH Active Problems Active Problems: All Active Problems Epigastric pain (Acute) Nausea (Acute) Acid reflux (Acute) Lipoma of axilla (Acute) Diverticulosis of colon (Acute) Chronic constipation (Acute) Encounter for screening colonoscopy (Acute) Past Medical History Medical History Diverticulosis GERD (gastroesophageal reflux disease) Anxiety Family History Family History Father Pancreatic cancer Mother Ovarian cancer Family history of problems with anesthesia: No Surgical History Surgical History H/O removal of cyst (10/20/22) Hx of colonoscopy History of esophagogastroduodenoscopy (EGD) Hx of appendectomy History of Problems with Anesthesia: No Social History Social History Household Members Other:: - 2 kids Are you a primary patient centered care specialist to a significant other at home: No Do you presently have visiting nurse or other home services: No Alcohol intake: never Patient Tobacco Use Status: Never used Tobacco Use of substances other than those prescribed or required for medical reasons: No Have you been hit, kicked, punched, or otherwise hurt by someone within the past year? If so, by whom?: No Are you DNR?: No Advance Directives: No Advance Directives Information Provided: Yes Recently lost weight without trying: No Current occupational status: disabled Meds Allergies Allergy/AdvReac Type Severity Reaction Status Date / Time No Known Allergies Allergy Verified 06/29/23 09:51 Active Medications: Current Medications Lactated Ringer's (Lr) 1,000 mls @ 80 mls/hr IVCONT .[id number] KAUSHAL Last Admin: 12/20/23 11:42 Dose: 80 mls/hr Naloxone HCl (Naloxone Hcl 0.4 Mg/Ml Vial) 0.04 mg IVPUSH Q5M PRN PRN Reason: Excessive sedation or RR < 8 Home Medications ?Medication ?Instructions ?Recorded ?Confirmed ?Last Taken ?Type bupropion HCl 300 mg 24 hr tablet, 300 mg PO QAM 08/29/20 12/16/23 Unknown History extended release inhalational spacing device #1 ea 08/29/20 10/30/22 Unknown History lorazepam 1 mg tablet 1 mg PO BID 08/29/20 12/16/23 Unknown History risperidone 1 mg tablet 1 mg PO BEDTIME 08/29/20 12/16/23 Unknown History ondansetron 4 mg disintegrating 4 mg PO Q8H 06/29/23 12/16/23 Unknown History tablet Exam Height,Weight and Vital Signs: Height 5 ft 4 in Weight 69.853 kg Last Vital Signs Temp 98.2 F 12/20/23 11:34 Pulse 75 12/20/23 11:34 Resp 16 12/20/23 11:34 BP 105/69 12/20/23 11:34 Pulse Ox 98 12/20/23 11:34 O2 Del Method Room Air 12/20/23 11:34 Airway Mallampati Class: II TM Dist: >3cm Neck ROM: Full Partial: Upper and Lower Heart: rrr Lungs: cta Assessment and Plan Assessment Anesthesia Assessment: Anesthesia Plan Discussed and Chart Reviewed Final Anesthetic Review Family History of Problems with Anesthesia: No History of Problems with Anesthesia: No NPO: Yes ASA Class: II Final Preanesthetic Review: No Changes in Pt Med Stat, Meds/Allgs Chart Reviewed, Consent Obtained/Reviewed and Anes Risks/Benef Reviewed Patient Risk: Intermediate Procedure Risk: Low Anesthetic Plan Anesthetic Plan: MAC: Disposition: Standard PACU
[2023-12-20 12:17] VITALS: BP 99/64; PULSE 66; RESP 12; TEMP 36.3; O2SAT 100
--- NOTE | 2023-12-20 12:18 | W.PM.OPN ---
Operative Note Operative Note Date of Service: 12/20/23 Narrative: FLEXIBLE TRANSORAL UPPER GASTROINTESTINAL ENDOSCOPY WITH BIOPSIES Pre-op diagnosis: GERD, Epigastric pain, Nausea Post-op diagnosis: GERD, esophagitis, Gastritis, Endoscopist:? Melo Benz MD Anesthesia:?MAC UPPER ENDOSCOPY Consent: Indications for the procedure and potential complications of bleeding, perforation, reaction to medications and missed diagnosis were discussed with the patient and informed consent was obtained. Instrument: Olympus GIF H 190 mid size upper endoscope Monitoring: Vital signs and clinical assessment, continuous EKG monitoring, Pulse oximetry, Carbon Dioxide monitoring and blood pressure monitoring were done throughout the procedure. Procedure: The patient was placed in the left lateral decubitis position and pre-procedure medications were administered and a bite block was placed. The endoscope was inserted into the mouth and advanced under direct vision to the third part of duodenum. A careful inspection was made as the upper endoscope was withdrawn including a retroflexed examination of the proximal stomach; Findings and interventions are described below. Findings: Larynx: Normal Esophagus: GE junction at 36 cms. A single 1.5 cms superficial erosion at the GE junction Stomach: Mild diffuse gastric erythema - biopsies were obtained from the gastric body and antrum. Grade 2 flap valve on retroflexed examination of the cardia. Duodenum: Normal bulb and descending duodenum. Biopsies were obtained from 3rd part of the duodenum to check for celiac sprue Intervention: Biopsies as noted above Impression and Post Procedure Diagnosis: Endoscopy Findings: ESOPHAGUS: A single 1.5 cms superficial erosion at the GE junction STOMACH: Mild diffuse gastric erythema - biopsies were obtained from the antrum. DUODENUM: Normal - biopsies were obtained to check for celiac sprue Plan: Pt has a FU appointment on 12/30/23 with STPEHANIE Borges. Above findings were reviewed with the patient and relevant handouts were given and the discharge area. Pt advised to take famotidine 20 mg daily at bedtime in addition to omeprazole 40 mg in the a.m. BIOPSIES SHOWED: A. Small bowel, biopsy: Small intestinal mucosa within normal limits; negative for celiac disease. B. Stomach, antrum, biopsy: - Antral-type mucosa with severe chronic active inflammation. - Positive for H pylori. C. Stomach, body, biopsy: - Oxyntic mucosa with moderate chronic active inflammation. - Positive for H pylori.
[2023-12-20 12:35] VITALS: BP 100/70; PULSE 69; RESP 12; TEMP 36.5; O2SAT 97
== END 2023-12-20 13:01 | disposition home or self-care (01) ==
PROVIDERS: PCP Internal Medicine; Visit Provider Internal Medicine Gastroenterology
PROC: 0DJ08ZZ Inspection of Upper Intestinal Tract, Via Natural or Artificial Opening Endoscopic (ICD-10-PCS; CPT 43235; principal; 2023-12-20 12:10)
DX: R10.13 Epigastric pain (principal); K21.9 Gastro-esophageal reflux disease without esophagitis; K29.50 Unspecified chronic gastritis without bleeding; F41.9 Anxiety disorder, unspecified; Z98.890 Other specified postprocedural states; Z79.899 Other long term (current) drug therapy
CPT/HCPCS: 43239; 88305; 88313; 88342; J2250; J2704

== ENCOUNTER → 2023-12-20 11:01 | Outpatient (BNV) | payer MEDICARE, MEDICAID, SELFPAY | PROVIDERS: PCP Internal Medicine; Visit Provider Internal Medicine Gastroenterology | DX: K21.00 Gastro-esophageal reflux disease with esophagitis, without bleeding (principal); K29.70 Gastritis, unspecified, without bleeding; B96.81 Helicobacter pylori [H. pylori] as the cause of diseases classified elsewhere | CPT/HCPCS: 43239 ==

== ENCOUNTER 2024-01-06 09:45 | Outpatient (AMB) | payer MEDICARE, MEDICAID, SELFPAY ==
--- NOTE | 2024-01-06 09:53 | A.OFFVIS_ITS ---
Vital Signs 01/06/24 09:54 Height 5 ft 4 in Weight 151 lb BMI 25.9 BP 113/74 Blood Pressure Location Lt brachial Position Sitting Pulse 79 Intake Visit Reasons: EGD results/Spring pt Intake Note: Patient follow up for EGD results. Patient cc: nauseas on and off, abdominal pain/bloating come and go, acid reflex with burning sensation, denies any other GI issues for today visit. Transportation Program Director Required: No Accompanied by: Self / Same As Patient Allergies No Known Allergies Allergy (Verified 01/06/24 09:52) Medication List - Last Reconciled 01/06/24 by Melo Benz MD bupropion HCl XL 300 mg PO QAM famotidine 20 mg PO BEDTIME 30 days inhalational spacing device As directed lorazepam 1 mg PO BID omeprazole 40 mg PO DAILY 30 days ondansetron 4 mg PO Q8H risperidone 1 mg PO BEDTIME HPI HPI EGD results/Spring pt: Details: GI clinic visit for this 53 Y for FU of GERD and abdominal pain to discuss EGD results TODAY'S VISIT: Patient cc: nauseas on and off, abdominal pain/bloating come and go, acid reflex with burning sensation, denies any other GI issues for today visit. EGD and biopsy results were reviewed with the patient - gastric biopsies are positive for Helicobacter pylori Complains of intermittent nausea - sometimes on an empty stomach. Patient complains of heartburn (2-3 times a week) and denies dysphagia, vomiting, change in appetite or weight. Denies recent change in bowel habits, constipation, diarrhea, black stools or rectal bleeding. Patient denies major cardiac or pulmonary problems, loud snoring or sleep apnea Denies problems with anesthesia in the past. Denies being on chronic anticoagulation. Patient denies known family history of colon polyps, colon cancer or other GI malignancies. LABS IN [place] : Reviewed IMAGING STUDIES: Reviewed ENDOSCOPIC STUDIES: 12/20/23 EGD SHOWED: ESOPHAGUS: A single 1.5 cms superficial erosion at the GE junction STOMACH: Mild diffuse gastric erythema - biopsies were obtained from the antrum. Plan: Pt advised to take famotidine 20 mg daily at bedtime in addition to omeprazole 40 mg in the a.m. BIOPSIES SHOWED: A. Small bowel, biopsy: Small intestinal mucosa within normal limits; negative for celiac disease. B. Stomach, antrum, biopsy: - Antral-type mucosa with severe chronic active inflammation. - Positive for H pylori. C. Stomach, body, biopsy: - Oxyntic mucosa with moderate chronic active inflammation. - Positive for H pylori PAST GI HISTORY BY REVIEW OF MEDICAL RECORDS: 06/2023 SEEN BY STEPHANIE POZO: A 52 y/o female with nausea and epigastric pain for the past 2 months-sx are not daily- she has increased fatigue Went to ED in March- due to vomiting, prescribed omeprazole 40 mg -she has had no further vomiting, she is only taking 2 or sometimes 3 days a week-now has noticed nausea and abdominal pain does feel somewhat better days that she does take PPI. Zofran -tries to hold off however needs it several times a week Appetite is fairly good, some days she does not eat due to the nausea Bowels- ok Abdominal U/S- normal per pt- in [place] She has no vomiting, fever chills. No new medications Colonoscopy up-to-date Dr. Benz EGD with PPI-daily Reflux precautions Patient Instructions: EGD with -discussed procedure rare risks need for escort PPI-daily- Reflux precautions avoid culprits Encouraged to call with questions or concerns Follow-up with PCP as scheduled [facility] Medical History (Updated 01/06/24 @ 10:44 by Melo Benz MD) Diverticulosis GERD (gastroesophageal reflux disease) Anxiety Surgical History H/O removal of cyst (10/20/22) Hx of colonoscopy History of esophagogastroduodenoscopy (EGD) Hx of appendectomy Family History Father Pancreatic cancer Mother Ovarian cancer Social History Household Members Other:: - 2 kids Are you a primary manager critical care unit to a significant other at home: No Do you presently have visiting nurse or other home services: No Alcohol intake: never Patient Tobacco Use Status: Never used Tobacco Current occupational status: disabled Review of Systems Const Denies fever(s), Denies headache(s) and Denies weight loss Eyes Denies eye discharge and Denies irritation ENT Reports Normal hearing present, Denies dysphagia, Denies dizziness and Denies headache(s) Card Denies chest pain, Denies leg edema and Denies dyspnea on exertion Resp Denies cough, Denies dyspnea on exertion and Denies wheezing GI Denies abdominal pain, Reports bloating, Denies change in bowel habits, Denies dysphagia, Reports heartburn and Reports nausea Denies difficulty voiding and Denies dysuria Musc Denies back pain, Reports arthralgias and Reports other (arthritis) Skin/Breast Denies pruritus, Denies rash and Denies jaundice Neuro Reports Normal hearing present, Denies Abnormal speech present, Denies dizziness, Denies headache(s) and Denies seizure-like activity Psych Reports anxiety, Reports depression and Denies panic attacks Endo Denies cold intolerance, Denies flushing and Denies heat intolerance Kendrick/Lymph Denies easy bleeding and Denies easy bruising Aller/Immun Denies wheezing Physical Exam Vital Signs: Last Vital Signs Pulse 79 01/06/24 09:54 BP 113/74 01/06/24 09:54 BMI result Body Mass Index 25.9 Const General: healthy appearing and no acute distress Nutritional Appearance: average body habitus Orientation/consciousness: patient oriented x3 Limitations: no limitations HEENT Head: Yes normal to inspection Ears: hearing grossly normal bilaterally Eyes Sclerae: sclerae normal Pupils: Equal, round and reactive pupils present Neck Neck: Yes normal visual inspection Chest Chest palpation & inspection: normal inspection of the chest Resp Effort & Inspection: normal respiratory effort Auscultation: clear to auscultation bilaterally Cardio Palpation: normal PMI Rate: regular rate Rhythm: regular rhythm Heart sounds: S1 normal heart sound present, S2 normal heart sound present and no murmurs GI Palpation (GI): Soft to palpation, nontender and No hepatosplenomegaly present Auscultation: normal bowel sounds Rectal Exam - Female: deferred Skin General skin exam: no rashes or lesions noted Neuro General: patient oriented x3, gait normal and moves all extremities Cranial nerves: Yes Equal, round and reactive pupils present and Yes Normal hearing present Speech: No Abnormal speech present Psych Appearance: grossly normal Mental Status: mental status grossly normal Assessment & Plan Assessment & Plan (1) Helicobacter pylori gastritis: Code(s): K29.70 - Gastritis, unspecified, without bleeding; B96.81 - Helicobacter pylori [H. pylori] as the cause of diseases classified elsewhere Category: Medical (2) Epigastric pain: Comment: Reviewed labs-enzymes normal Code(s): R10.13 - Epigastric pain Category: Medical (3) Nausea: Comment: Try to identify culprits Code(s): R11.0 - Nausea Category: Medical (4) Acid reflux: Code(s): K21.9 - Gastro-esophageal reflux disease without esophagitis Category: Medical (5) Diverticulosis of colon: Comment: Maintain high-fiber diet Diverticulitis/diverticulosis Repeat asymptomatic screening colonoscopy 10 year Code(s): K57.30 - Diverticulosis of large intestine without perforation or abscess without bleeding Category: Medical (6) Encounter for screening colonoscopy: Code(s): Z12.11 - Encounter for screening for malignant neoplasm of colon Category: Medical Plan: 10/2020 colonoscopy showed diverticulosis and no polyps were seen. Repeat colonoscopy in 10 years (due 10/2030) Plan 53 Y for FU of GERD and abdominal pain to discuss EGD results EGD and biopsy results were reviewed with the patient - gastric biopsies are positive for Helicobacter pylori Complains of intermittent nausea - sometimes on an empty stomach. Patient complains of heartburn (2-3 times a week) and denies dysphagia, vomiting, change in appetite or weight. Pt prescribed antibiotics for H Pylori infection. Fu in 3 months - H Pylori breath test on FU (pt advised to hold Omeprazole 2 weeks before FU appt, she can take Famotidine twice daily while Omeprazole is on hold. Medications: New clarithromycin 500 mg PO Q12H 14 days 28 tabs 0RF B96.81 - Helicobacter pylori [H. pylori] as the cause of diseases classified elsewhere, K29.70 - Gastritis, unspecified, without bleeding amoxicillin 1,000 mg (2 x 500 mg) PO Q12H 14 days 56 tabs 0RF B96.81 - Helicobacter pylori [H. pylori] as the cause of diseases classified elsewhere, K29.70 - Gastritis, unspecified, without bleeding Coding Level of Care Code Est Pt Level 4 (29376) Diagnoses Helicobacter pylori gastritis K29.70; B96.81 Epigastric pain R10.13 Nausea R11.0 Acid reflux K21.9 Diverticulosis of colon K57.30 Encounter for screening colonoscopy Z12.11 Time Spent (min) 21
[2024-01-06 09:54] VITALS: BP 113/74; PULSE 79; BMI 25.9
== END 2024-01-06 10:40 | disposition home or self-care (01) ==
PROVIDERS: PCP Internal Medicine; Visit Provider Internal Medicine Gastroenterology
DX: K29.70 Gastritis, unspecified, without bleeding (principal); B96.81 Helicobacter pylori [H. pylori] as the cause of diseases classified elsewhere; R10.13 Epigastric pain; R11.0 Nausea; K21.9 Gastro-esophageal reflux disease without esophagitis; K57.30 Diverticulosis of large intestine without perforation or abscess without bleeding; Z12.11 Encounter for screening for malignant neoplasm of colon
CPT/HCPCS: 99214

== ENCOUNTER → 2024-01-06 09:45 | Outpatient (BNVA) | payer MEDICARE, MEDICAID, SELFPAY | PROVIDERS: PCP Internal Medicine; Visit Provider Internal Medicine Gastroenterology | DX: Z12.11 Encounter for screening for malignant neoplasm of colon (principal); K29.70 Gastritis, unspecified, without bleeding; K21.9 Gastro-esophageal reflux disease without esophagitis; K57.30 Diverticulosis of large intestine without perforation or abscess without bleeding; B96.81 Helicobacter pylori [H. pylori] as the cause of diseases classified elsewhere; R10.13 Epigastric pain; R11.0 Nausea | CPT/HCPCS: 99212 ==

== ENCOUNTER 2024-04-11 12:59 | Outpatient (REF) | payer MEDICARE, MEDICAID, SELFPAY ==
--- OUTSIDE RECORDS SUMMARY | 2024-04-11 15:52 | XMS_ITS | Encounter Summary ---
Author Organization [employer] Address [address] [facility] 7t [place] [address] Care Team Providers Care Medical Records Analyst Name Role Phone Paul Olivarez MD Primary Care Prov ider Encounter Details Date Type Department Care Team (Late st Contact Info) Description 06/15/2022 Orders Only [facility] [address] [place], [place] [phone] Paul Olivarez MD [address] [place], [place] [phone] Fibromyalgia Social History Tobacco Use Types Packs/Day Years Used Date Smoking Tobacco: Never Smokeless Tobacco: Never Depression Answer Date Recorded Patient Health Questionnaire-9 Score 0 04/03/2022 Depression Answer Date Recorded Patient Health Questionnaire-2 Score 0 04/03/2022 Comments Unknown Sex and Gender Information Value Date Recorded Sex Assigned at Female 12/15/2021 10:21 AM EDT Legal Sex Female 10:21 AM EDT Gender Identity Female 12/15/2021 10:21 AM EDT Sexual Orientation Straight 12/15/2021 10 :21 AM EDT documented as of this encounter Plan of Treatment Not on file documented as of this encounter Visit Diagnoses Diagnosis Fibromyalgia Unspecified myalgia and myositis documented in this encounter Additional Health Concerns Assessment Noted Time PHQ-9 Depression Total Score: 0 04/03/19 23 8:37 AM EST documented as of this encounter Care Teams Medical Records Analyst Relationship Specialty Start Date End Date Paul Olivarez MD [address] [place], [place] [phone] PCP - General Internal Medicine 06/26/19 documented as of this encounter
--- OUTSIDE RECORDS SUMMARY | 2024-04-11 15:52 | XMS_ITS | Encounter Summary ---
Author Organization [employer] Address [address] [facility] 7t [place] [address] Care Team Providers Care Passenger Rate Clerk Name Role Phone Paul Olivarez MD Primary Care Prov ider Encounter Details Date Type Department Care Team (Latest Contact Info) Description 03/13/2024 Travel Social History Tobacco Use Types Packs/Day Years Used Date Smoking Tobacco: Never Passive Smoke Exposure: Never Smokeless Tobacco: Never Depression Answer Date Recorded Patient Health Questionnaire-9 Score 0 04/22/2023 Patient Health Questionnaire-9 Score 0 04/22/2023 Last PHQ-9: Questionnaire Data Not on file 0 04/22/2023 Housing Stability Answer Date Recorded What is your housing situation today? I have kavithalew shay 04/22/[address] you li ve. Do you have problems with any of the following? None of the above 04/22/2023 Food Insecurity Answer Date Recorded Within the past 12 months, y ou worried that your food would run out before you got money to buy more: Never True 04/22/2023 Within the past 12 months,th e food you bought just didn't last and you didn't have enough money to get more: Never True 08/2023 Transportation Answer Date Recorded In the past 12 months, has l ack of transportation kept you from medical appts, meetings, work or from getting things needed for daily living? No 04/22/2023 Utilities Answer Date Recorded In the past 12 months, has t he electric, gas, oil or water company threatened to shut off services in your home? No 04/22/2023 Depression Answer Date Recorded Patient Health Questionnaire-2 Score 0 04/22/2023 Comments Unknown Sex and Gender Information Value Date Recorded Sex Assigned at Female 12/15/2021 10:21 AM EDT Legal Sex Female 10:21 AM EDT Gender Identity Female 12/15/2021 10:21 AM EDT Sexual Orientation Straight 12/15/2021 10 :21 AM EDT documented as of this encounter Plan of Treatment Not on file documented as of this encounter Visit Diagnoses Not on filedocumented in this encounter Additional Health Concerns Assessment Noted Time PHQ-9 Depression Total Score: 0 04/22/19 24 8:35 AM EST documented as of this encounter Care Teams Passenger Rate Clerk Relationship Specialty Start Date End Date Paul Olivarez MD [address] [place] [phone] PCP - General Internal Medicine 06/26/19 documented as of this encounter
--- OUTSIDE RECORDS SUMMARY | 2024-04-11 15:52 | XMS_ITS | Encounter Summary ---
Author Organization [employer] Address [address] [facility] 7[address] [place] [address] Care Team Providers Care Negative Cutter Name Role Phone Paul Olivarez MD Primary Care Prov ider Reason for Visit * Reason Onset Date Comments Med Refill 08/26/2023 Encounter Details Date Type Department Care Team (Late st Contact Info) Description 08/26/2023 Telephone [facility] [address] [place] [address] Paul Olivarez MD [address] [place], [place] [phone] Med Refill Social History Tobacco Use Types Packs/Day Years Used Date Smoking Tobacco: Never Passive Smoke Exposure: Never Smokeless Tobacco: Never Depression Answer Date Recorded Patient Health Questionnaire-9 Score 0 04/22/2023 Patient Health Questionnaire-9 Score 0 04/22/2023 Last PHQ-9: Questionnaire Data Not on file 0 04/22/2023 Housing Stability Answer Date Recorded What is your housing situation today? I have kavitha shay 04/22/[address] you [...] AM EDT documented as of this encounter Miscellaneous Notes * Telephone Encounter - Curry Sr - 08/26/2023 9:38 AM EDT TC from pt requesting medication refill. Medications needing refill : risperiDONE (RisperDAL) 2 MG tablet To be sent to: [id number] - [place], [place] - [address] [place] [address] AT [facility] Pt out of medication and Psychiatrist is on Vacation documented in this encounter Plan of Treatment Not on file documented as of this encounter Visit Diagnoses Not on filedocumented in this encounter Additional Health Concerns Assessment Noted Time PHQ-9 Depression Total Score: 0 04/22/19 24 8:35 AM EST documented as of this encounter Care Teams Negative Cutter Relationship Specialty Start Date End Date Paul Olivarez MD [address] [place] [id number] PCP - General Internal Medicine 06/26/19 documented as of this encounter
--- OUTSIDE RECORDS SUMMARY | 2024-04-11 15:52 | XMS_ITS | Encounter Summary ---
Author Organization [employer] Address [address] [facility] 7t [place] [address] Care Team Providers Care Activity Aid Name Role Phone Paul Olivarez MD Primary Care Prov ider Encounter Details Date Type Department Care Team (Late st Contact Info) Description 01/13/2022 Abstract [facility] [address] [place], [place] [phone] Dental, Provider, DDS Social History Tobacco Use Types Packs/Day Years Used Date Smoking Tobacco: Never Assessed Comments Unknown Sex and Gender Information Value Date Recorded Sex Assigned at Female 12/15/2021 10:21 AM EDT Legal Sex Female 10:21 AM EDT Gender Identity Female 12/15/2021 10:21 AM EDT Sexual Orientation Straight 12/15/2021 10 :21 AM EDT documented as of this encounter Plan of Treatment Not on file documented as of this encounter Procedures Procedure Name Priority Date/Time Associated Diagnosis Comments 28 B COMPOSITE FILLING Routine 01/13/2022 12:00 AM EST 29 DO COMPOSITE FILLING Routine 01/13/2022 12:00 AM EST 4 B(V)O COMPOSITE FILLING Routine 01/13/2022 12:00 AM EST 6 MF COMPOSITE FILLING Routine 01/13/2022 12:00 AM EST 8 DL COMPOSITE FILLING Routine 01/13/2022 12:00 AM EST 9 DFL COMPOSITE FILLING Routine 01/13/2022 12:00 AM EST 11 M COMPOSITE FILLING Routine 01/13/2022 12:00 AM EST 11 D COMPOSITE FILLING Routine 01/13/2022 12:00 AM EST 12 B(V) COMPOSITE FILLING Routine 01/13/2022 12:00 AM EST 12 B COMPOSITE FILLING Routine 01/13/2022 12:00 AM EST 14 BB(V) COMPOSITE FILLING Routine 01/13/2022 12:00 AM EST 14 LO AMALGAM FILLING Routine 01/13/2022 12:00 AM EST 13 MOD AMALGAM FILLING Routine 01/13/2022 12:00 AM EST 10 ROOT CANAL Routine 01/13/2022 12:00 AM EST 10 PFM CROWN Routine 01/13/2022 12:00 AM EST documented in this encounter Visit Diagnoses Not on filedocumented in this encounter Care Teams Activity Aid Relationship Specialty Start Date End Date Paul Olivarez MD [address] [place] [id number] PCP - General Internal Medicine 06/26/19 documented as of this encounter
--- OUTSIDE RECORDS SUMMARY | 2024-04-11 15:52 | XMS_ITS | Encounter Summary ---
Author Organization [employer] Address [address] [facility] 7[address] [place] [address] Care Team Providers Care Compactor Driver Name Role Phone Paul Olivarez MD Primary Care Prov ider Encounter Details Date Type Department Care Team (Latest Contact Info) Description 08/08/2018 Abstract [facility] CONVERSIONS Dental, Provider, DDS Social History Tobacco Use [...] on filedocumented in this encounter Care Teams Compactor Driver Relationship Specialty Start Date End Date Paul Olivarez MD [address] [place] [phone] PCP - General Internal Medicine 06/26/19 documented as of this encounter
--- OUTSIDE RECORDS SUMMARY | 2024-04-11 15:52 | XMS_ITS | Encounter Summary ---
Author Organization [employer] Address [address] [facility] 7t [place] [address] Care Team Providers Care Therapy Teacher Name Role Phone Paul Olivarez MD Primary Care Prov ider Encounter Details Date Type Department Care Team (Latest Contact Info) Description 04/10/2024 Travel Social History Tobacco Use Types Packs/Day [...] documented as of this encounter Care Teams Therapy Teacher Relationship Specialty Start Date End Date Paul Olivarez MD [address] [place] [phone] PCP - General Internal Medicine 06/26/19 documented as of this encounter
--- OUTSIDE RECORDS SUMMARY | 2024-04-11 15:52 | XMS_ITS | Clinical Summary ---
Author Organization [employer] Address [address] [facility] [address] [place] [address] Care Team Providers Care Asbestos Removal Supervisor Name Role Phone Paul Olivarez MD Primary Care Prov ider Allergies No known active allergies Medications albuterol (ProAir HFA) 108 (90 Base) MCG/ACT inhaler Inhale 2 puffs every 4 (four) hours. 05/10/19 21 Active lidocaine (Xylocaine) 5 % ointment Apply topically at bed time. 05/28/19 22 Active LORazepam (Ativan) 1 MG tablet Take 1 tablet by mouth every 8 (eight) hours. Active meclizine (Antivert) 25 MG tablet Take 1 tablet (25 mg) by mouth if needed in the morning, at noon, and at bedtime for dizziness for up to 180 doses. 60 tablet 2 08/20/19 23 Active SUMAtriptan (Imitrex) 50 MG tablet Take 1 tablet (50 mg) by mouth 1 (one) time if needed for migraine for up to 9 doses. May repeat dose once in 2 hours if no relief. Do not exceed 2 doses in 24 hours. 9 tablet 11/25/19 23 Active DULoxetine (Cymbalta) [address] capsuleIndicat ions:Fibromyal pam TAKE 1 CAPSULE(60 MG) BY MOUTH IN THE MORNING 90 capsule 3 04/28/19 24 Active gabapentin (Neurontin) 400 MG capsuleIndicat ions:Fibromyal pam Take 1 capsule (400 mg) by mouth 3 times daily. 270 capsule 3 07/06/19 24 025 Active pantoprazole (Protonix) 40 MG EC tabletIndicati ons:Epigastric abdominal pain Take 1 tablet (40 mg) by mouth before breakfast. Do not crush, chew, or split. 30 tablet 11 07/06/19 24 025 Active risperiDONE (RisperDAL) 1 MG tablet TAKE 1 TABLET(1 MG) BY MOUTH AT BEDTIME 30 tablet 07/22/19 24 Active buPROPion XL (Wellbutrin XL) 150 MG 24 hr tablet 12/15/19 24 Active hydrOXYzine HCl (Atarax) 25 MG tablet TAKE 1 TABLET BY MOUTH THREE TIMES DAILY NEEDED FOR PANIC OR SEVERE ANXIETY OR INSOMNIA 08/02/19 24 Active risperiDONE (RisperDAL) 2 MG tablet TAKE 1 TABLET(2 MG) BY MOUTH EVERY 12 HOURS 60 tablet 2 02/28/19 25 Active naproxen (Naprosyn) 500 MG tabletIndicati ons:Contusion of soft tissue,Lumbar sprain, initial encounter Take 1 tablet (500 mg) by mouth 2 times daily. 60 tablet 03/13/19 25 025 Active lidocaine (Lidoderm) 5 % patchIndicatio ns:Contusion of soft tissue,Lumbar sprain, initial encounter Apply 1 patch topically Once per day. Remove & discard patch within 12 hours or as directed by MD. 30 patch 03/13/19 25 Active methocarbamol (Robaxin) 750 MG tabletIndicati ons:Contusion of soft tissue,Lumbar sprain, initial encounter Take 1 tablet (750 mg) by mouth 4 times daily for 10 days. 40 tablet 04/10/19 25 025 Active naproxen (Naprosyn) 500 MG tablet TAKE 1 TABLET BY MOUTH WITH BREAKFAST AND WITH EVENING MEAL 60 tablet 2 02/23/19 25 025 Discontinued methocarbamol (Robaxin) 750 MG tabletIndicati ons:Contusion of soft tissue,Lumbar sprain, initial encounter Take 1 tablet (750 mg) by mouth 4 times daily for 10 days. 40 tablet 03/13/19 25 025 Discontinued(Re order (will not trigger notification to Pharmacy)) Active Problems Problem Noted Date Diagnosed Date Weight gain 04/22/2023 Assessment & Plan (04/22/2023 9:26 AM EST): Patient refers gaining weight, most likely related to SNRI, [facility] Epigastric abdominal pain 03/31/2023 Assessment & Plan (07/06/2023 9:57 AM EDT): Followed by Gi on pantoprazole, no changes, lifestyle modifications recommended Assessment & Plan (04/22/2023 9:25 AM EST): Patient refersd feeling bloated, with nausea, no vomiting, hpylori test not done, she refers will get it done tomorrow, continue with prescribed meds, follow up with GI Assessment & Plan (03/31/2023 3:02 PM EST): Pain came in for a hospital F/U. She was at [facility] on 03/29/23 for stomach pain. She had labs done that were normal. They diagnosed her with acid reflux and prescribed her omeprazole but it hasn't helped. Will switch PPI, send for H pylori testing, along with trial of other anti-acid meds. I have referred her to gastroenterology and made a F/U appointment with her provider. Future Appointments Date Time Provider Department Center 04/01/2023 10:00 AM Rhonda Kirkpatrick DDS [facility] 04/15/2023 1:15 PM Paul Brock MD [facility] Cluster headaches 11/20/2022 Assessment & Plan (11/20/2022 11:46 AM EDT): Will send sumatriptan, no warning signs such as blurry vision, weakness, her headaches have been going for about 2 weeks Annual physical exam 09/21/2022 Assessment & Plan (09/21/2022 12:37 PM EDT): Physical examination was unremarkable, new labs will be ordered, pending mammogram which she canceled (she will call to reschedule). Fibromyalgia 04/03/2022 Assessment & Plan (04/10/2024 10:30 AM EST): Controlled with current treatment, gabapentin/cymbalta, continue lifestyle modifications Assessment & Plan (09/02/2023 9:31 AM EDT): Controlled with current dose of gabapentin and duloxetine, no changes will be made, encouraged increase in physical activity Assessment & Plan (07/06/2023 9:56 AM EDT): Controlled, on gabapentin and cymbalta, continue current treatment, increase physical activity, water exercises, yoga, acupuncture were reccomended Assessment & Plan (02/27/2023 2:38 PM EST): Symptoms improved after starting cymbalta and gabapentin, will leave on current therapy, continue psych follow up Assessment & Plan (09/21/2022 12:36 PM EDT): Symptoms imprioved with combination of gabapentin/cymbalta, continue daily exercise and water sports Assessment & Plan (04/03/2022 9:50 AM EST): Symptoms improved, continue gabapentin/cymbalta, continue home exercises, no changes will be made Screening for cervical cancer 04/03/2022 Assessment & Plan (04/03/2022 9:50 AM EST): Done in 06/2020 Colon cancer screening 04/03/2022 Assessment & Plan (04/03/2022 9:51 AM EST): Done in 10/2020 good for 10 years 2030 Encounter for screening mamm ogram for malignant neoplasm of breast 04/03/2022 Assessment & Plan (04/03/2022 9:53 AM EST): Patient had it done on 05/2021, new scheduled for june 2022 Chill 01/13/2022 Dyspnea on exertion 01/13/2022 Suspected COVID-19 virus infection 01/13/2022 Mood disorder 11/01/2017 Low grade squamous intraepit h lesion on cytologic smear cervix (lgsil) 06/27/2016 Overview (03/31/2023): LSIL HR HPV Neg--> Colpo -> Negative --> 09/08/2016 Normal HPV Neg --> 12/17/2017 Major depressive disorder, recurrent episode, mo derate 02/20/2015 Encounters Date Type Department Care Team Description 04/10/2024 9:45 AM EST Telemedicine [facility] [address] [place] [address] Paul Olivarez MD Fibromyalgia (Primary Dx); Contusion of soft tissue; Lumbar sprain, initial encounter 04/10/2024 Travel 04/10/2024 Refill [facility] [address] [place] [address] Parrish Del Rio MD Contusion of soft tissue; Lumbar sprain, initial encounter 03/13/2024 2:45 PM EST Office Visit [facility] [address] [place] [address] Parrish Del Rio MD Contusion of soft tissue (Primary Dx); Lumbar sprain, initial encounter; Fall, subsequent encounter 03/13/2024 Travel 03/13/2024 Telephone [facility] [address] [place] [address] Paul Olivarez MD Nurse Triage; ER Follow-up 02/29/2024 Refill [facility] [address] [place] [address] Paul Olivarez MD 02/24/2024 Refill [facility] [address] [place] [address] Paul Olivarez MD from Last 3 Months Immunizations Name Administration Dates Next Due Influenza injectable quadrivalent preservative f ree 02/25/2023,12/31/2021 Pfizer Covid-19 Vaccine 12+ 07/03/2020, Tdap 03/28/2015 Zoster, Recombinant 12/31/2021 Family History Medical History Relation Name Comments Pancreatic cancer Father Ovarian cancer Mother No Known Problems Paternal Grandfather Hypertension Sister Relation Name Status Comments Father Mother Paternal Grandfather Sister Social History Tobacco Use Types Packs/Day Years Used Date Smoking Tobacco: Never Passive Smoke Exposure: Never Smokeless Tobacco: Never Tobacco Cessation:Counseling Given: Not Answered Depression Answer Date Recorded Patient Health Questionnaire-9 [...] Orientation Straight 12/15/2021 10 :21 AM EDT Last Filed Vital Signs Vital Sign Reading Time Taken Comments Blood Pressure 105/65 03/13/2024 3:06 PM EST Pulse 81 03/13/2024 3:06 PM EST Temperature 36.6 ??C (97.8 ??F) 03/13/2024 3:06 PM ES T Respiratory Rate 18 03/13/2024 3:06 PM EST Oxygen Saturation 96% 03/13/2024 3:06 PM EST Inhaled Oxygen Concentration - - Weight 71.7 kg (158 lb) 03/13/2024 3:06 PM EST Height 162.6 cm (5' 4 ) 03/13/2024 3:06 PM EST Body Mass Index 27.12 03/13/2024 3:06 PM EST Plan of Treatment Health Maintenance Due Date Last Done Comments CT Colonography 1968 FIT DNA/Cologuard 1968 FIT 1968 FOBT 1968 Sigmoidoscopy 1968 Alcohol/Substance Use Screening 1980 Hepatitis B Vaccines (1 of 3 - 19+ 3-dose series) 07/27/1987 Pneumococcal Vaccine: 50+ Years (1 of 1 - PCV) 2018 Zoster Vaccines (2 of 2) 02/25/2022 12/31/2021 Pap Smear 06/26/2023 06/25/2020 COVID-19 Vaccine (3 - 2023-2 5 season) 2023 07/03/2020, 06/12/2020 Influenza Vaccine (#1) 2023 , 12/31/2021 Depression Screening 04/21/2024 04/22/2023, 04/22/2023 SDOH Screening 04/21/2024 04/22/2023 Dental Oral Exam 06/16/2024 12/17/2023 Dental Prophylaxis 06/16/2024 12/17/2023 Dental X-Ray: Bitewings 12/17/2024 12/17/2023 Tobacco Screening 03/13/2025 03/13/2024 Mammogram 03/17/2025 03/17/2023, 06/05/2021, 05/30/2020 DTaP/Tdap/Td Vaccines (2 - T d or Tdap) 03/28/2025 03/28/2015 Cervical Cancer Screening 06/25/2025 HPV/Cotest 06/25/2025 06/25/2020 Dental X-Ray: Full Mouth 12/17/2026 12/17/2023 Colonoscopy 11/11/2030 11/11/2020 Colorectal Cancer Screening 11/11/2030 RSV Patients and Patients Aged 60 years or older (1 - 1-dose 75+ series) 07/27/2043 HIV Screening Completed 05/21/2021 Hepatitis C Screening Completed 09/21/2022 , 05/21/2021 HIB Vaccines Aged Out No longer eligi ble based on patient's age to complete this topic HPV Vaccines Aged Out No longer eligi ble based on patient's age to complete this topic Hepatitis A Vaccines Aged Out No long er eligible based on patient's age to complete this topic IPV Vaccines Aged Out No longer eligi ble based on patient's age to complete this topic Meningococcal Vaccine Aged Out No radha kwame eligible based on patient's age to complete this topic RSV under 20 months Aged Out No longe r eligible based on patient's age to complete this topic Rotavirus Vaccines Aged Out No longer eligible based on patient's age to complete this topic Procedures Procedure Name Priority Date/Time Associated Diagnosis Comments PROPHYLAXIS - ADULT Routine 12/17/2023 1 1:00 AM EDT INTRAORAL - COMPLETE SERIES OF RADIOGRAPHIC IMAGES Routine 12/17/2023 11:00 AM EDT PERIODIC ORAL EVALUATION - ESTABLISHED PATIENT Routine 12/17/2023 11:00 AM EDT BI MAMMOGRAM SCREENING TOMOSYNTHESIS BILATERAL Routine 03/17/2023 7:43 AM EST HEPATITIS C VIRAL RNA, QUANTITATIVE, REAL-TIME PCR Routine 09/21/2022 11:59 AM EDT Annual physical exam HIV 1/2 ANTIGEN/ANTIBODY, FOURTH GENERATION W/RFL Routine 05/21/2021 10:07 AM EDT HM COLONOSCOPY Routine 11/11/2020 2:28 PM EDT HPV MRNA E6/E7 Routine 06/25/2020 10:49 AM EDT THINPREP PAP Routine 06/25/2020 10:49 AM EDT from Last 3 Months or Most Recently Relevant to Health Maintenance Results * BI Mammogram Screening Tomosynthesis Bilateral (03/17/2023 7:43 AM EST) Anatomical Region Laterality Modality Breast Bilateral Mammography 03/17/2023 7:43 AM EST Narrative 04/08/2023 9:20 PM EST ? [facility] ? [address] ?[place] [address] ? Mammography Report ? Signed ? Patient: Rola Vega,Jenn ?MR#: [id number] ?? [id number] ? : 1970 ?Acct:[id number] ? Age/Sex: 52 / F ?ADM Date: /31/24 ? Loc: HO.MAMMO ? Attending Dr: Paul Brock MD ? Ordering Physician: Paul Olivarez MD ?Res ?? ults: 1Negative ? Date of Service: 03/17/23 ?Follow Up: 1 Year From Orig ?? inal Mammogram ? Procedure(s): MM tomosynthesis screening BI ?? Accession Number(s): [id number] ? cc: Paul Olivarez MD ? EXAMINATION: ?? MM SCREENING DIGITAL BREAST TOMOSYNTHESIS, BILATERAL ? CLINICAL INFORMATION: ? Screening. Asymptomatic. ? COMPARISON: ?? Mammography: This study is compared with prior exams dating back to ?? 2018. ? TECHNIQUE: ?? Digital breast tomosynthesis is performed in both the craniocaudal and ?? mediolateral oblique views along with computer-aided detection (CAD). ?? Synthesized 2D images are generated from the tomosynthesis. ? FINDINGS: ?? There are scattered areas of fibroglandular density (ACR BI-RADS breast ?? composition Category b). ? There are no significant masses, abnormal calcifications, or other ?? abnormalities. ? MM/MM tomosynthesis screening BI ?? IMPRESSION: ?? No mammographic evidence of malignancy. ? ASSESSMENT: ? BI-RADS BI-RADS 1 - Negative ? RECOMMENDATION: ?? Routine annual mammography screening. ? 1 year F/U ? This examination should not preclude the clinical evaluation of a ?? suspicious palpable abnormality. ? This patient's information was entered into a reminder system with a ?? target due date for their next mammogram. ? Dictated By: ?Crista Rust MD ? Signed By: ?<Electronically signed by Crista Rust MD in OV> ? 04/08/232115 ? DD/ 0743 ? TD/TT: ? Audit Officer: ? Procedure Note Donotsarahinterpreter, Image - 04/08/2023 [place] [facility] [address] [place] [address] Mammography Report Signed Patient: Jenn BaxterMR#: [id number] : 1970Acct:[id number] Age/Sex: 52 / FADM Date: 03/17/23 Loc: HO.MAMMO Attending Dr: Paul Brock MD Ordering Physician: Paul Olivarez ults: 1Negative Date of Service: 03/17/23Follow Up: 1 Year From Orig inal Mammogram Procedure(s): MM tomosynthesis screening BI Accession Number(s): [id number] cc: Paul Olivarez MD EXAMINATION: MM SCREENING DIGITAL BREAST TOMOSYNTHESIS, BILATERAL CLINICAL INFORMATION: Screening. Asymptomatic. COMPARISON: Mammography: This study is compared with prior exams dating back to 2018. TECHNIQUE: Digital breast tomosynthesis is performed in both the craniocaudal and mediolateral oblique views along with computer-aided detection (CAD). Synthesized 2D images are generated from the tomosynthesis. FINDINGS: There are scattered areas of fibroglandular density (ACR BI-RADS breast composition Category b). There are no significant masses, abnormal calcifications, or other abnormalities. MM/MM tomosynthesis screening BI IMPRESSION: No mammographic evidence of malignancy. ASSESSMENT: BI-RADS BI-RADS 1 - Negative RECOMMENDATION: Routine annual mammography screening. 1 year F/U This examination should not preclude the clinical evaluation of a suspicious palpable abnormality. This patient's information was entered into a reminder system with a target due date for their next mammogram. Dictated By: Crista Rust MD Signed By: <Electronically signed by Crista Rust MD in OV> 04/08/232115 DD/ 0743 TD/TT: Audit Officer: Paul Brock MD IMG BI PROCEDURES Edited Result - Final * Hepatitis C Viral RNA, Quantitative, Real-Time PC (09/21/2022 11:59 AM EDT) [facility] Hepatitis C Viral Load <15 NOT DETECTED NOT DETECTED IU/mL [facility] HCV Log PCR <1.18 NOT DETECTED NOT DETECTED Log IU/mL [facility] Comment:This test was perfor med using Real-Time Polymerase ChainReaction.Reportable Range: 15 IU/mL to 100,000,000 IU/mL(1.18 Log IU/mL to 8.00 Log IU/mL).The analytical performance characteristics of thisassay have been determined by [employer].The modifications have not been cleared or approved bythe FDA. This assay has been validated pursuant to theCLIA regulations and is used for clinical purposes.For more information on this test, go to:http://education.[employer]/faq/MMX97q1(This link is being provided for informational/educational purposes only.)THIS TEST WAS PERFORMED AT:[employer] [place] [id number] WICLOX MD Blood 09/21/2022 11:5 9 AM EDT 09/21/2022 2:16 PM EDT Paul Brock MD LAB BLOOD ORDERABL ES Final Result [facility] [address] [place] [phone] * HIV 1/2 ANTIGEN/ANTIBODY,FOURTH GENERATION W/RFL (05/21/2021 10:07 AM EDT) [facility] HIV-1/2 ANTIGEN AND ANTIBODIES, 4TH GENERATION W/ REFLEX NON-REACT BARRETT NON-REACT BARRETT [facility] Comment: HIV-1 antigen and HIV-1/HIV-2 antibodies were not detected. There is no laboratory evidence of HIV infection. ?? PLEASE NOTE: This information has been disclosed to you from records whose confidentiality may be protected by state law. ??If your state requires such protection, then the state law prohibits you from making any further disclosure of the information without the specific written consent of the person to whom it pertains, or as otherwise permitted by law. A general authorization for the release of medical or other information is NOT sufficient for this purpose. ? For additional information please refer to http://education.[employer]/faq/VGS276 (This link is being provided for informational/ educational purposes only.) ? The performance of this assay has not been clinically validated in patients less than 2 years old. ?? 05/21/2021 10:0 7 AM EDT Paul Brock MD LAB BLOOD ORDERABL ES Final Result [facility] [address] * Hm Colonoscopy (11/11/2020 2:28 PM EDT) Rin Provider HEALTH MAINTENANCE Final Result * THINPREP PAP (06/25/2020 10:49 AM EDT) Pathologist [facility] Clinical Information: MENOPAUSE [facility] COMMENT [facility] Comment: EXPLANATORY NOTE: ? The Pap is a screening test for cervical cancer. It is ?? not a diagnostic test and is subject to false negative ?? and false positive results. It is most reliable when a ?? satisfactory sample, regularly obtained, is submitted ?? with relevant clinical findings and history, and when ?? the Pap result is evaluated along with historic and ?? current clinical information. ?? [employer]: SEE COMMENT [facility] Comment: BK,CT(ASCP) CT screening location: [facility] Interpretation/Res ult: [facility] Comment: Negative for intraepithelial lesion or malignancy. Atrophic pattern; predominantly parabasal cells LMP: NIL 2012 [facility] Prev. BX: NEG COLPOSCOPY FOUND [facility] Prev. PAP: PRIOR H/O ABNL PAP 2016 [facility] SOURCE: None given [facility] Statement Of Adequacy: SATISFACTORY FOR EVALUATION [facility] 06/25/2020 10:4 9 AM EDT Ora CORTES LAB PATHOLOGY ORDERABLES Final Result Performing Organization Address [facility] Co de Phone Number [facility] [address] * HPV mRNA E6/E7 (06/25/2020 10:49 AM EDT) HPV nRNA E6/E7 Not Detected Not Detected [facility] Comment: Methodology: Industrial Maintenance Electrician-Mediated Amplification This assay detects E6/E7 viral messenger RNA (mRNA) from 14 high-risk HPV types (16,18,31,33,35,39,45,51,52,56,58,59,66,68). ? The analytical performance characteristics of this assay have been determined by [employer]. The modifications have not been cleared or approved by the FDA. This assay has been validated pursuant to the CLIA regulations and is used for clinical purposes. ?? For additional information, please refer to http://education.[employer]/faq/UMA959m1 (This link if provided for information/ educational purposes only.) 06/25/2020 10:4 9 AM EDT Ora CORTES LAB BLOOD ORDERABLES Dorina l Result Performing Organization Address [facility] Co de Phone Number [facility] [address] from Last 3 Months or Most Recently Relevant to Health Maintenance Insurance [facility] AARP MEDICARE ADVANTAGE HMO [facility] MEDICAID STAND ADULT DENTAL [facility] Care Teams Asbestos Removal Supervisor Relationship Specialty Start Date End Date Paul Olivarez MD [address] [place] [address] PCP - General Internal Medicine 06/26/19
--- OUTSIDE RECORDS SUMMARY | 2024-04-11 15:52 | XMS_ITS | Encounter Summary ---
Author Organization [employer] Address [address] [facility] [address] [place] [address] Care Team Providers Care Truss Assembler Name Role Phone Paul Olivarez MD Primary Care Prov ider Reason for Referral * Consultation (Routine) - Closed Specialty Diagnoses / Procedures Referred By Amber liz Referred To Contact Physical Therapy Diagnoses Lumbar sprain, initial encounter Paul Olivarez MD [address] [place] [address] Phone: tel: fax: Physical Therapy, AT [address] [place] [address] Phone: tel: fax: Referral ID Status Reason Start Date Expiration Date V isits Requested Visits Authorized [id number] Closed Specialty Services Required 04/10/2024 04/10/2025 1 1 Encounter Details Date Type Department Care Team (Late st Contact Info) Description 04/10/2024 9:45 AM EST Telemedicine [facility] [address] [place] [address] Paul Olivarez MD [address] [place], [place] [phone] Fibromyalgia (Primary Dx); Contusion of soft tissue; Lumbar sprain, initial encounter Social History Tobacco Use Types Packs/Day Years [...] AM EDT documented as of this encounter Progress Notes * Paul Brock MD - 04/10/2024 9:45 AM EST Subjective Patient ID: Jenn Canela is a 53 y.o. female who presents for No chief complaint on file.. Muscle Pain This is a chronic problem. Pertinent negatives include no abdominal pain, fatigue, fever, joint swelling or shortness of breath. Review of Systems Constitutional: Negative for fatigue and fever. Respiratory: Negative for shortness of breath. Gastrointestinal: Negative for abdominal pain. Musculoskeletal: Negative for joint swelling. Objective Physical Exam Neurological: General: No focal deficit present. Mental Status: She is oriented to person, place, and time. Psychiatric: Mood and Affect: Mood normal. Behavior: Behavior normal. Assessment/Plan Problem List Items Addressed This Visit Fibromyalgia - Primary Controlled with current treatment, gabapentin/cymbalta, continue lifestyle modifications Other Visit Diagnoses Contusion of soft tissue Relevant Medications methocarbamol (Robaxin) 750 MG tablet Lumbar sprain, initial encounter Will refer to PT, renew methocarbamol, continue with tylenol/ibuprofen/lidocaine, Moist heat Keep as active as tolerated Fall precautions discussed. Relevant Medications methocarbamol (Robaxin) 750 MG tablet documented in this encounter Miscellaneous Notes * Assessment & Plan Note - Paul Brock MD - 04/10/2024 10:30 AM ESTAssociated Problem(s): Fibromyalgia Controlled with current treatment, gabapentin/cymbalta, continue lifestyle modifications documented in this encounter Plan of Treatment Scheduled Referrals Name Type Priority Associated Diagnoses Orde r Schedule Referral to Physical Therapy Outpatient Referral Routine Lumbar sprain, initial encounter Expected: 04/10/2024 (Approximate), Expires: 04/10/2025 documented as of this encounter Visit Diagnoses Diagnosis Fibromyalgia- Primary Unspecified myalgia and myositis Contusion of soft tissue Contusion of unspecified site Lumbar sprain, initial encounter documented in this encounter Additional Health Concerns Assessment Noted Time PHQ-9 Depression Total Score: 0 04/22/19 24 8:35 AM EST documented as of this encounter Care Teams Truss Assembler Relationship Specialty Start Date End Date Paul Olivarez MD [address] [place] [phone] PCP - General Internal Medicine 06/26/19 documented as of this encounter
--- OUTSIDE RECORDS SUMMARY | 2024-04-11 15:52 | XMS_ITS | Encounter Summary ---
Author Organization [employer] Address [address] [facility] [address] [place] [address] Care Team Providers Care Senior Power Plant Operator Name Role Phone Paul Olivarez MD Primary Care Prov ider Reason for Visit * Reason Comments Med Refill Encounter Details Date Type Department Care Team ([facility] st Contact Info) Description 04/10/[address] [facility] [address] [place] [address] Parrish Del Rio MD [address] [place] [address] Contusion of soft tissue; Lumbar sprain, initial [...] as of this encounter Visit Diagnoses Diagnosis Contusion of soft tissue Contusion of unspecified site Lumbar sprain, initial encounter documented in this encounter Additional Health Concerns Assessment Noted Time PHQ-9 Depression Total Score: 0 04/22/19 24 8:35 AM EST documented as of this encounter Care Teams Senior Power Plant Operator Relationship Specialty Start Date End Date Paul Olivarez MD [address] [place] [id number] PCP - General Internal Medicine 06/26/19 documented as of this encounter
--- OUTSIDE RECORDS SUMMARY | 2024-04-11 15:52 | XMS_ITS | Encounter Summary ---
Author Organization [employer] Address [address] [facility] 7[address] [place] [address] Care Team Providers Care Fisheries Technical Officer Name Role Phone Paul Olivarez MD Primary Care Prov ider Reason for Visit * Reason Onset Date Comments case back from lab? 06/09/2023 Encounter Details Date Type Department Care Team ([facility] st Contact Info) Description 06/09/2023 Telephone [facility] ADULT D[facility]AL [address] [place] [address] Rhonda Kirkpatrick, [place] [address] [place] [address] case back from lab? Social History Tobacco Use Types Packs/Day Years [...] encounter Miscellaneous Notes * Telephone Encounter - Elizabeth Galarza - 06/09/2023 9:54 AM EDT Patient is looking to confirm if case is back from lab. She was here yesterday 06/07 DR documented in this encounter Plan of Treatment Not on file documented as of this encounter Visit Diagnoses Not on filedocumented in this encounter Additional Health Concerns Assessment Noted Time PHQ-9 Depression Total Score: 0 04/22/19 24 8:35 AM EST documented as of this encounter Care Teams Fisheries Technical Officer Relationship Specialty Start Date End Date Paul Olivarez MD [address] [place] [id number] PCP - General Internal Medicine 06/26/19 documented as of this encounter
--- OUTSIDE RECORDS SUMMARY | 2024-04-11 15:52 | XMS_ITS | Clinical Summary ---
Author Organization [facility] Address [address] [place] [address] Phone Care Team Providers Care Special Education Director Name Role Phone Physician, No Pcp Primary Care Provider Unavaila ble Allergies No known active allergies Medications citalopram (CeleXA) 20 mg tablet Take 1 Tab by mouth daily. 9 Active LORazepam (ATIVAN) 1 mg tablet Take 1 Tab by mouth daily as needed for Anxiety. 9 Active risperiDONE (RisperDAL) 2 mg tablet Take 1 Tab by mouth 2 times daily. 9 Active methocarbamoL (ROBAXIN) 500 mg tablet Take 1 tablet (500 mg total) by mouth 2 (two) times a day for 7 days. 14 tablet 5 Active ibuprofen (ADVIL,MOTRIN) 400 mg tablet Take 1 tablet (400 mg total) by mouth every 8 (eight) hours for 7 days. 21 tablet 5 03/12/19 25 acetaminophen (TYLENOL) 500 mg tablet Take 2 tablets (1,000 mg total) by mouth every 8 (eight) hours for 10 days. 60 tablet 5 03/15/19 25 lidocaine 4 % patch Apply 1 patch topically 1 (one) time each day for 10 days. 10 patch 5 03/15/19 25 Active Problems Problem Noted Date Diagnosed Date Low grade squamous intraepit h lesion on cytologic smear cervix (lgsil) 06/27/2016 Overview (02/01/2024): LSIL HR HPV Neg--> Colpo -> Negative --> 09/08/2016 Normal HPV Neg --> 12/17/2017 Weight loss 05/14/2015 Major depressive disorder, recurrent episode, mo derate 02/20/2015 Mood disorder 07/07/2013 Encounters Date Type Department Care Team Description 03/05/2024 10:56 AM EST - 03/05/2024 2:39 PM EST Emergency [facility] Emergency [address] [place] [address] Kathleen Cheema, Fall, initial encounter (Primary Dx); Strain of lumbar region, initial encounter Discharge Disposition: Home or Self Care from Last 3 Months Immunizations Name Administration Dates Next Due Tdap Tetanus diptheria acell ular pertussis (Boostrix; Adacel) 7yo and older 03/28/2015 Medical History Medical History Date Comments Bipolar 1 disorder (CMS/HCC) 03/28/2015 DX: Bipolar 1 disorder (HCC) Family History Medical History Relation Name Comments Other: ovarian cancer Aunt 1 matern al aunt- in her 70s with mets Other: cancer,other Aunt 2 paternal aunt; ? primary Other: pancreatic cancer Father Other: ovarian cancer Maternal Grandmother suspected with mets Other: ovarian cancer Mother a t 53 with mets Other: ovarian cancer Other 1 matern al first cousin Breast cancer Sister 1 alive at age 5 2 in 2016; unilateral Relation Name Status Comments Aunt 1 Aunt 2 Aunt 3 Father pancreatic canc er 63 Maternal Grandmother Mother 53 cancer- Other 1 Other 2 Sister 1 Sister 2 Social History Tobacco Use Types Packs/Day Years Used Date Smoking Tobacco: Never Smokeless Tobacco: Never Alcohol Use Standard Drinks/Week Comments No 0 (1 standard drink = 0.6 oz pur e alcohol) Comments Unknown Sex and Gender Information Value Date Recorded Sex Assigned at Female 03/05/2024 12:35 PM EST Legal Sex Female 9:43 AM EST Gender Identity Female 03/05/2024 12:35 PM EST Sexual Orientation Straight 03/05/2024 12 :35 PM EST Obstetrics History Last Filed Vital Signs Vital Sign Reading Time Taken Comments Blood Pressure 111/78 03/05/2024 1:27 PM EST Pulse 58 03/05/2024 1:27 PM EST Temperature 36.7 ??C (98.1 ??F) 03/05/2024 1:27 PM ES T Respiratory Rate 03/05/2024 1:27 PM EST Oxygen Saturation 97% 03/05/2024 1:27 PM EST Inhaled Oxygen Concentration - - Weight - - Height - - Body Mass Index - - Plan of Treatment Health Maintenance Due Date Last Done Comments Breast Cancer Screening 1968 Hepatitis B Vaccines (1 of 3 - 19+ 3-dose series) 07/27/1987 Pneumococcal Vaccine: 50+ Years (1 of 1 - PCV) 2018 Cervical Cancer Screening: P ap Smear 12/17/2018 12/17/2017, 12/17/2017, 12/17/2017 Colorectal Cancer Screening: Colonoscopy 01/13/2022 Medicare Annual Wellness Visit 01/13/2022 Social Influencers of Health Screening 01/13/2022 Zoster Vaccines (2 of 2) 02/25/2022 12/31/2021 COVID-19 Vaccine (3 - 2023-2 5 season) 2023 07/03/2020, 06/12/2020 Influenza Vaccine (#1) 2023 , 12/31/2021 Depression Screening 04/21/2024 04/22/2023 DTaP,Tdap,and Td Vaccines (2 - Td or Tdap) 03/28/2025 03/28/2015 Hepatitis C Screening Completed 05/14/2015 HIV Screening Completed 05/21/2021, 05/14/2015 HIB Vaccines Aged Out No longer eligi [...] on patient's age to complete this topic MMR Vaccines Aged Out No longer eligi ble based on patient's age to complete this topic Meningococcal ACWY Vaccine Aged Out N o longer eligible based on patient's age to complete this topic Meningococcal B Vacine Aged Out No lo nger eligible based on patient's age to complete this topic Pneumococcal Vaccine: Pediatrics (0 to 5 Years) and At-Risk Patients (6 to 64 Years) Aged Out No longer eligible b ased on patient's age to complete this topic RSV Immunization Patients Under 20 months Aged Out No longer eligible b ased on patient's age to complete this topic Varicella Vaccines Aged Out No longer eligible based on patient's age to complete this topic Procedures Procedure Name Priority Date/Time Associated Diagnosis Comments XR CHEST 2 VIEWS STAT 03/05/2024 12:1 5 PM EST XR LUMBAR SPINE 2-3 VIEWS STAT 03/05/2024 12:15 PM EST XR HIP 2-3 VIEWS LEFT STAT 03/05/2024 12:15 PM EST ECG 12-LEAD STAT 03/05/2024 11:46 AM EST CBC WITH AUTO DIFFERENTIAL STAT 03/05/2024 11:20 AM EST TYPE AND SCREEN STAT 03/05/2024 11:20 AM EST BASIC METABOLIC PANEL STAT 03/05/2024 11:20 AM EST CBC AND DIFFERENTIAL STAT 03/05/2024 11:20 AM EST ECG ANNOTATED 03/05/2024 PAP SMEAR Routine 12/17/2017 HEPATITIS C SCREENING Routine 05/14/2015 HIV SCREENING Routine 05/14/2015 from Last 3 Months or Most Recently Relevant to Health Maintenance Results * XR Hip 2-3 Views Left (03/05/2024 12:15 PM EST) Anatomical Region Laterality Modality Lower Extremities, Hip Left Radiograp hic Imaging 03/05/2024 12:3 8 PM EST Impressions 03/05/2024 12:39 PM EST Unremarkable AP pelvis and left hip exam. -------- FINAL REPORT -------- Dictated By: Donovan Caban Dictated Date: 03/05/2024 12:38 ET Assigned Physician: Donovan Caban Reviewed and Electronically Signed By: Donovan Caban Signed Date: 03/05/2024 12:39 ET Workstation ID: [id number] Transcribed By: Self Edit Transcribed Date: 03/05/2024 12:38 ET Narrative 03/05/2024 12:39 PM EST EXAMINATION: Left hip 2-3 views. AP pelvis one view. CLINICAL INDICATION: Left hip pain. COMPARISON: None. FINDINGS: AP pelvis: There is normal symmetric bilateral SI joints and hip joints. No visible acute fracture, dislocation or subluxation seen. No lytic or sclerotic process. The soft tissues are normal. AP and frog-leg views left hip reveals maintained hip joint space lobe. No loose bodies, bony erosive changes or soft tissue swelling or calcification. No acute fracture. Procedure Note Donovan Caban MD - 03/05/2024 EXAMINATION: Left hip 2-3 views. AP pelvis one view. CLINICAL INDICATION: Left hip pain. COMPARISON: None. FINDINGS: AP pelvis: There is normal symmetric bilateral SI joints and hip joints.No visible acute fracture, dislocation or subluxation seen. No lytic orsclerotic process. The soft tissues are normal. AP and frog-leg views left hip reveals maintained hip joint space lobe. Noloose bodies, bony erosive changes or soft tissue swelling orcalcification. No acute fracture. IMPRESSION: Unremarkable AP pelvis and left hip exam. -------- FINAL REPORT -------- Dictated By: Donovan Caban Dictated Date: 03/05/2024 12:38 ET Assigned Physician: Donovan Caban Reviewed and Electronically Signed By: Donovan Caban Signed Date: 03/05/2024 12:39 ET Workstation ID: [id number] Transcribed By: Self Edit Transcribed Date: 03/05/2024 12:38 ET us Kathleen Cheema DO IMG XR PROCEDURES Final R esult * XR Lumbar Spine 2-3 Views (03/05/2024 12:15 PM EST) Anatomical Region Laterality Modality Spine, L-spine Radiographic Ilda ging 03/05/2024 12:4 9 PM EST Impressions 03/05/2024 12:51 PM EST Degenerative disc changes L5-S1 disc level. No visible acute fracture or dislocation seen. Moderate constipation. -------- FINAL REPORT -------- Dictated By: Donovan Caban Dictated Date: 03/05/2024 12:49 ET Assigned Physician: Donovan Caban Reviewed and Electronically Signed By: Donovan Caban Signed Date: 03/05/2024 12:51 ET Workstation ID: [id number] Transcribed By: Self Edit Transcribed Date: 03/05/2024 12:49 ET Narrative 03/05/2024 12:51 PM EST Examination: Lumbar spine 2-3 views. CLINICAL INDICATION: Low back pain. COMPARISON: None. FINDINGS: There is maintained lumbar lordosis. The vertebral heights and alignment is normal. There is loss of L5-S1 disc height. Rest of the disc heights are normal. There is no visible acute fracture, dislocation or lytic process seen. The paravertebral soft tissues are normal. There is large amount of stool seen in colon. Procedure Note Donovan Caban MD - 03/05/2024 Examination: Lumbar spine 2-3 views. CLINICAL INDICATION: Low back pain. COMPARISON: None. FINDINGS: There is maintained lumbar lordosis. The vertebral heights andalignment is normal. There is loss of L5-S1 disc height. Rest of the discheights are normal. There is no visible acute fracture, dislocation orlytic process seen. The paravertebral soft tissues are normal. There islarge amount of stool seen in colon. IMPRESSION: Degenerative disc changes L5-S1 disc level. No visible acute fracture ordislocation seen. Moderate constipation. -------- FINAL REPORT -------- Dictated By: Donovan Caban Dictated Date: 03/05/2024 12:49 ET Assigned Physician: Donovan Caban Reviewed and Electronically Signed By: Donovan Caban Signed Date: 03/05/2024 12:51 ET Workstation ID: [id number] Transcribed By: Self Edit Transcribed Date: 03/05/2024 12:49 ET us Kathleen Cheema DO IMG XR PROCEDURES Final R esult * XR Chest 2 Views (03/05/2024 12:15 PM EST) Anatomical Region Laterality Modality Body Radiographic Ilda ging 03/05/2024 1:06 PM EST Impressions 03/05/2024 1:07 PM EST Unremarkable chest exam -------- FINAL REPORT -------- Dictated By: Donovan Caban Dictated Date: 03/05/2024 13:06 ET Assigned Physician: Donovan Caban Reviewed and Electronically Signed By: Donovan Caban Signed Date: 03/05/2024 13:07 ET Workstation ID: [id number] Transcribed By: Self Edit Transcribed Date: 03/05/2024 13:06 ET Narrative 03/05/2024 1:07 PM EST Examination: Chest 2 views. CLINICAL INDICATION: Chest pain. COMPARISON: Chest 11/26/2021. FINDINGS: The lungs are well-expanded and clear. The heart size and pulmonary vascularity is normal. No gross bony abnormality seen. Procedure Note Donovan Caban MD - 03/05/2024 Examination: Chest 2 views. CLINICAL INDICATION: Chest pain. COMPARISON: Chest 11/26/2021. FINDINGS: The lungs are well-expanded and clear. The heart size andpulmonary vascularity is normal. No gross bony abnormality seen. IMPRESSION: Unremarkable chest exam -------- FINAL REPORT -------- Dictated By: Donovan Caban Dictated Date: 03/05/2024 13:06 ET Assigned Physician: Donovan Caban Reviewed and Electronically Signed By: Donovan Caban Signed Date: 03/05/2024 13:07 ET Workstation ID: [id number] Transcribed By: Self Edit Transcribed Date: 03/05/2024 13:06 ET us Kathleen Cheema DO IMG XR PROCEDURES Final R esult * ECG 12 lead (03/05/2024 11:46 AM EST) Ventricular Rate ECG 64 BPM GEMUSE Atrial Rate 64 BPM GEMUSE P-R Interval 148 ms GEMUSE QRS Duration 80 ms GEMUSE Q-T Interval 414 ms GEMUSE QTc 427 ms GEMUSE P Wave Sherman 42 degrees GEMUSE R Sherman 76 degrees GEMUSE T Sherman 62 degrees GEMUSE ECG Interpretation Normal sinus rhythm Normal ECG When compared with ECG of 25-NOV-2021 23:46, No significant change was found Confirmed by Gela HART JAMES ([id number]) on 03/06/2024 6:52:07 AM GEMUSE 03/05/2024 11:4 6 AM EST 03/06/2024 6:52 AM EST us Kathleen Cheema DO ECG ORDERABLES Final Res ult GEMUSE * (ABNORMAL) CBC auto differential (03/05/2024 11:20 AM EST) WBC 3.6(L) 4.8 - 10.8 K/mcL LAB HEMETOLOGY METHOD 03/05/2024 11:30 AM [facility] RBC 4.00 3.80 - 4.80 M/mcL LAB HEMETOLOGY METHOD 03/05/2024 11:30 AM [facility] Hemoglobin 12.0 11.5 - 16.0 g/dL LAB HEMETOLOGY METHOD 03/05/2024 11:30 AM [facility] Hematocrit 37.1 35.0 - 47.0 % LAB HEMETOLOGY METHOD 03/05/2024 11:30 AM [facility] MCV 93.0 79.0 - 98.0 FL LAB HEMETOLOGY METHOD 03/05/2024 11:30 AM [facility] MCH 30.1 27.0 - 32.0 pcg LAB HEMETOLOGY METHOD 03/05/2024 11:30 AM [facility] MCHC 32.3 32.0 - 37.0 g/dL LAB HEMETOLOGY METHOD 03/05/2024 11:30 AM [facility] RDW 12.9 11.0 - 15.0 % LAB HEMETOLOGY METHOD 03/05/2024 11:30 AM [facility] Platelets 302 130 - 400 K/mcL LAB HEMETOLOGY METHOD 03/05/2024 11:30 AM [facility] MPV 9.0 7.0 - 11.0 FL LAB HEMETOLOGY METHOD 03/05/2024 11:30 AM [facility] NRBC 0.0 <1.0 % LAB HEMETOLOGY METHOD 03/05/2024 11:30 AM [facility] NRBC Absolute 0.00 <0.10 K/mcL LAB HEMETOLOGY METHOD 03/05/2024 11:30 AM [facility] Neutrophils Relative 63.3 % LAB HEMETOLOGY METHOD 03/05/2024 11:30 AM [facility] Lymphocytes Relative 27.2 % LAB HEMETOLOGY METHOD 03/05/2024 11:30 AM [facility] Monocytes Relative 8.4 % LAB HEMETOLOGY METHOD 03/05/2024 11:30 AM [facility] Eosinophils Relative 0.3 % LAB HEMETOLOGY METHOD 03/05/2024 11:30 AM [facility] Basophils Relative 0.8 % LAB HEMETOLOGY METHOD 03/05/2024 11:30 AM [facility] Immature Granulocytes Relative 0.0 % LAB HEMETOLOGY METHOD 03/05/2024 11:30 AM [facility] Neutrophils Absolute 2.25 1.50 - 7.00 K/mcL LAB HEMETOLOGY METHOD 03/05/2024 11:30 AM [facility] Lymphocytes Absolute 0.97(L) 1.00 - 5.00 K/mcL LAB HEMETOLOGY METHOD 03/05/2024 11:30 AM [facility] Monocytes Absolute 0.30 0.20 - 1.00 K/mcL LAB HEMETOLOGY METHOD 03/05/2024 11:30 AM EST [facility] Eosinophils Absolute 0.01 0.00 - 0.50 K/mcL LAB HEMETOLOGY METHOD 03/05/2024 11:30 AM EST [facility] Basophils Absolute 0.03 0.00 - 0.20 K/mcL LAB HEMETOLOGY METHOD 03/05/2024 11:30 AM EST [facility] Immature Granulocytes Absolute 0.00 0.00 - 0.03 K/mcL LAB HEMETOLOGY METHOD 03/05/2024 11:30 AM EST [facility] Blood Venous blood specimen / Unknown Venipuncture / Unknown 03/05/2024 11:20 AM EST 03/05/2024 11:26 AM EST Kathleen Roca Cheema LAB BLOOD ORDERABLES Dorina l Result [facility] [address] [place] [address], [place] [phone] * Type and screen (03/05/2024 11:20 AM EST) ABO Group B 03/05/2024 12:17 PM EST [facility] Rh Type Positive 03/05/2024 12:17 PM EST [facility] Antibody Screen Negative 03/05/2024 12:17 PM EST [facility] Blood Venous blood specimen / Unknown Venipuncture / Unknown 03/05/2024 11:20 AM EST 03/05/2024 11:26 AM EST Kathleen [employer] Abelino Cheema LAB BLOOD BANK TEST ORDER PATEL Final Result [facility] [address] [place] [address], [place] [phone] * Basic metabolic panel (03/05/2024 11:20 AM EST) Sodium 136 133 - 145 mmol/L LAB CHEMISTRY METHOD 03/05/2024 12:00 PM [facility] Potassium 4.7 3.5 - 5.5 mmol/L LAB CHEMISTRY METHOD 03/05/2024 12:00 PM [facility] Comment:Hemolysis present Chloride 106 96 - 110 mmol/L LAB CHEMISTRY METHOD 03/05/2024 12:00 PM [facility] CO2 27 21 - 32 mmol/L LAB CHEMISTRY METHOD 03/05/2024 12:00 PM [facility] Anion Gap 3 3 - 11 LAB CHEMISTRY METHOD 03/05/2024 12:00 PM [facility] Glucose 76 70 - 100 mg/dL LAB CHEMISTRY METHOD 03/05/2024 12:00 PM [facility] BUN 14 5 - 25 mg/dL LAB CHEMISTRY METHOD 03/05/2024 12:00 PM [facility] Creatinine 0.73 0.50 - 1.10 mg/dL LAB CHEMISTRY METHOD 03/05/2024 12:00 PM [facility] eGFR 97 >=60 mL/min/1. 73m2 LAB CHEMISTRY METHOD 03/05/2024 12:00 PM [facility] Comment:Calculation based on the??Chronic Kidney Disease Epidemiology Collaboration (CKD-EPI) equation refit??without adjustment for race. BUN/Creatinine Ratio 19.2 LAB CHEMISTRY METHOD 03/05/2024 12:00 PM [facility] Calcium 9.1 8.5 - 10.5 mg/dL LAB CHEMISTRY METHOD 03/05/2024 12:00 PM [facility] Blood Venous blood specimen / Unknown Venipuncture / Unknown 03/05/2024 11:20 AM EST 03/05/2024 11:26 AM EST Kathleen Cheema DO LAB BLOOD ORDERABLES Dorina l Result [facility] [place] [facility] [address] [place] [address], * ECG-Annotated (03/05/2024) Provider Onbase ECG ORDERABLES Final Result * Pap smear (12/17/2017) 12/17/2017 Narrative HISTORICAL TESTING LAB RESULTING AGENCY - 12/24/2017 8:17 AM EST [id number] THINPREP PAP, IMAGED: NEGATIVE FOR SQUAMOUS INTRAEPITHELIAL LESION AND MALIGNANCY . REACTIVE CELLULAR CHANGES. URBANO MCCARTY(ASCP) (CASE SCREENED 12 21 2017) FABIAN RUSSELL M.D. , PATHOLOGIST (CASE ELECTRONICALLY SIGNED 12 22 2017) RESULT OF APTIMA HIGH RISK HPV ASSAY: HIGH RISK HPV: ??NEGATIVE (SEROTYPES 16,18,31,33,35,39,45,51,52,56,58,59,66,68) COMPLETED ON 2017-12-21 ADEQUACY: SATISFACTORY ENDOCERVICAL/TRANSFORMATION ZONE COMPONENT PRESENT. SOURCE: THINPREP PAP HPV ANY DX: ??REFLEX 16 AND 18, CERVICAL, IMAGED: CLINICAL INFORMATION: HPV ANY DIAGNOSIS. Z12.4, Z01.419, CLARK MENOPAUSE, PAP HX: POSITIVE, NEG HPV + --> LSIL NEG COLPO, LMP 12/04/2017 us Kash Grant MD LAB CYTOLOGY ORDERABLES Final Result HISTORICAL TESTING LAB RESULTING AGENCY * HIV Screening (05/14/2015) HIV Screening Abstracted Historical Provider HEALTH MAINTENANCE Final Result * Hepatitis C Screening (05/14/2015) Hepatitis C Screening Abstracted us Historical Provider MD HEALTH MAINTENANCE Final Result from Last 3 Months or Most Recently Relevant to Health Maintenance Insurance MEDICAID - [place] [employer] MEDICARE Care Teams Special Education Director Relationship Specialty Start Date End Date Physician, No Pcp PCP - General 03/05/24
--- OUTSIDE RECORDS SUMMARY | 2024-04-11 15:52 | XMS_ITS | Encounter Summary ---
Author Organization [employer] Address [address] [place] [address] 7 [place] [address] Care Team Providers Care Export Packer Name Role Phone Paul Olivarez MD Primary Care Prov ider Reason for Referral * Medications - Closed Specialty Diagnoses / Procedures Referred By Robinac t Referred To Contact Diagnoses Contusion of soft tissue Lumbar sprain, initial encounter Parrish Del Rio MD [address] [place] [address] Phone: tel: fax: Referral ID Status Reason Start Date Expiration Date Visits Re quested Visits Authorized [id number] Closed 03/13/2024 03/13/2025 1 1 Encounter Details Date Type Department Care Team (Late st Contact Info) Description 03/13/2024 2:45 PM EST Office Visit [facility] [address] [place] [id number] Parrish Del Rio MD [address] [place], [place] [phone] Contusion of soft tissue (Primary Dx); Lumbar sprain, initial encounter; Fall, subsequent encounter Social History Tobacco Use Types Packs/Day [...] AM EDT documented as of this encounter Last Filed Vital Signs Vital Sign Reading [...] Mass Index 27.12 03/13/2024 3:06 PM EST documented in this encounter Progress Notes * Parrish Del Rio MD - 03/13/2024 2:45 PM EST Subjective Patient ID: Jenn Canela is a 53 y.o. female who presents for No chief complaint on file.. HPI Patient is here for an emergency department follow-up. She presented herself to the hospital on March 05 for evaluation of left lower back pain. Patient stated she fell down 3 stairs. No reported loss of consciousness. Was able to bear weight with some assistance. She is mostly complaining of left posterior pelvic pain which is worse when she flexes her hip. She did take some gabapentin for herpain. Physical exam was positive for tenderness of the left lower lumbar paraspinal area. X-ray unremarkable Lumbar x-ray and hip x-ray did not show any signs of fracture. Patient was able to ambulate after she received Toradol and oxycodone. Dx discharged on Robaxin, an NSAIDs ( ibuprofen), lidocaine patches to use [id number]. Impression of lumbar strain after fall. Patient Active Problem List Diagnosis Chill Dyspnea on exertion Mood disorder (CMS/HCC) Suspected COVID-19 virus infection Fibromyalgia Screening for cervical cancer Colon cancer screening Encounter for screening mammogram for malignant neoplasm of breast Annual physical exam Cluster headaches Major depressive disorder, recurrent episode, moderate (CMS/HCC) Low grade squamous intraepith lesion on cytologic smear cervix (lgsil) Epigastric abdominal pain Weight gain Current Outpatient Medications on File Prior to Visit Medication Sig Dispense Refill albuterol (ProAir HFA) 108 (90 Base) MCG/ACT inhaler Inhale 2 puffs every 4 (four) hours. buPROPion XL (Wellbutrin XL) 150 MG 24 hr tablet DULoxetine (Cymbalta) [address] capsule TAKE 1 CAPSULE(60 MG) BY MOUTH IN THE MORNING 90 capsule 3 gabapentin (Neurontin) 400 MG capsule Take 1 capsule (400 mg) by mouth 3 times daily. 270 capsule 3 hydrOXYzine HCl (Atarax) 25 MG tablet TAKE 1 TABLET BY MOUTH THREE TIMES DAILY NEEDED FOR PANIC OR SEVERE ANXIETY OR INSOMNIA lidocaine (Xylocaine) 5 % ointment Apply topically at bed time. LORazepam (Ativan) 1 MG tablet Take 1 tablet by mouth every 8 (eight) hours. meclizine (Antivert) 25 MG tablet Take 1 tablet (25 mg) by mouth if needed in the morning, at noon,and at bedtime for dizziness for up to 180 doses. 60 tablet 2 naproxen (Naprosyn) 500 MG tablet TAKE 1 TABLET BY MOUTH WITH BREAKFAST AND WITH EVENING MEAL 60 tablet 2 pantoprazole (Protonix) 40 MG EC tablet Take 1 tablet (40 mg) by mouth before breakfast. Do not crush, chew, or split. 30 tablet 11 risperiDONE (RisperDAL) 1 MG tablet TAKE 1 TABLET(1 MG) BY MOUTH AT BEDTIME 30 tablet 0 risperiDONE (RisperDAL) 2 MG tablet TAKE 1 TABLET(2 MG) BY MOUTH EVERY 12 HOURS 60 tablet 2 SUMAtriptan (Imitrex) 50 MG tablet Take 1 tablet (50 mg) by mouth 1 (one) time if needed for migraine for up to 9 doses. May repeat dose once in 2 hours if no relief. Do not exceed 2 doses in 24 hours. 9 tablet 0 No current facility-administered medications on file prior to visit. No Known Allergies Review of Systems Objective Physical Exam Constitutional: General: She is not in acute distress. Appearance: Normal appearance. She is not ill-appearing, toxic-appearing or diaphoretic. Cardiovascular: Rate and Rhythm: Normal rate. Pulmonary: Effort: Pulmonary effort is normal. Musculoskeletal: Comments: Tenderness to palpation of the Buttocks b/l. No bruises. Neurological: Mental Status: She is alert. Assessment/Plan Diagnoses and all orders for this visit: Contusion of soft tissue - methocarbamol (Robaxin) 750 MG tablet; Take 1 tablet (750 mg) by mouth 4 times daily for 10 days. - naproxen (Naprosyn) 500 MG tablet; Take 1 tablet (500 mg) by mouth 2 times daily. - lidocaine (Lidoderm) 5 % patch; Apply 1 patch topically Once per day. Remove & discard patch within 12 hours or as directed by MD. Lumbar sprain, initial encounter Comments: Moist heat Keep as active as tolerated Fall precautions discussed. Orders: - methocarbamol (Robaxin) 750 MG tablet; Take 1 tablet (750 mg) by mouth 4 times daily for 10 days. - naproxen (Naprosyn) 500 MG tablet; Take 1 tablet (500 mg) by mouth 2 times daily. - lidocaine (Lidoderm) 5 % patch; Apply 1 patch topically Once per day. Remove & discard patch within 12 hours or as directed by . Fall, subsequent encounter Comments: Had a mechanical fall on 03/05 No reported LOC, Palpitation or dizziness prior to the fall Fall precautions discussed. documented in this encounter Plan of Treatment Not on file documented as of this encounter Visit Diagnoses Diagnosis Contusion of soft tissue- Primary Contusion of unspecified site Lumbar sprain, initial encounter Fall, subsequent encounter documented in this encounter Additional Health Concerns Assessment Noted Time PHQ-9 Depression Total Score: 0 04/22/19 24 8:35 AM EST documented as of this encounter Care Teams Export Packer Relationship Specialty Start Date End Date GironPaul Tucker MD [address] [place] [id number] PCP - General Internal Medicine 06/26/19 documented as of this encounter
--- OUTSIDE RECORDS SUMMARY | 2024-04-11 15:52 | XMS_ITS | Encounter Summary ---
Author Organization [employer] Address [address] [facility] [address] [place] [address] Care Team Providers Care Customer Account Technician Name Role Phone Paul Olivarez MD Primary Care Prov ider Reason for Visit * Reason Onset Date Comments Nurse Triage 03/13/2024 ER Follow-up 03/13/2024 Encounter Details Date Type Department Care Team ([facility] st Contact Info) Description 03/13/2024 Telephone [facility] [address] [place] [address] Paul Olivarez MD [address] [place] [address] Nurse Triage; ER Follow-up Social History Tobacco Use Types Packs/Day Years [...] encounter Miscellaneous Notes * Telephone Encounter - Nichole Winter LPN - 03/13/2024 11:32 AM EST Triage call returned to patient who reports that she has had only slight improvement with pain as related to fall on 03/05/2024. Seen at [facility] Ed and note in chart. Patient reports fell backwards to the left side. Followed all ED DC instructions with some relief with muscle relaxers. Currently using a cane for ambulation. ( did not use prior) has weakness of left leg after standing or walking for a distance. Has pain in left lower back and most difficulty is when sitting and then trying to stand has shooting pain into left buttock. Disposition reviewed and patient in agreement with plan. ASK/ today at 245pm. Reviewed with patient home care recommendations and reasons to call back. Pt verbalized understanding and agrees. Patient insurance verified at time of call. Protocol Used: Back Injury (Adult) Protocol-Based Disposition: See in Office or Video Visit within 3 Days Video visit not offered Positive Triage Question: * Injury and pain has not improved after 3 days * All higher-acuity triage questions were negative Care Advice Discussed: * Rest vs. Movement * Reasons To Call Back - You become worse * Telephone Encounter - Sander Avalos - 03/13/2024 11:17 AM EST Patient calling to report ED visit on : Date: 03/05/24 Hospital: [facility] Seen for: Fall Symptomatic Yes Symptom: Back Pain - Not From Injury Outcome: Schedule an appointment to be seen within 3 days Reason: Unable to bend down Please contact pt at [phone]. documented in this encounter Plan of Treatment Not on file documented as of this encounter Visit Diagnoses Not on filedocumented in this encounter Additional Health Concerns Assessment Noted Time PHQ-9 Depression Total Score: 0 04/22/19 24 8:35 AM EST documented as of this encounter Care Teams Customer Account Technician Relationship Specialty Start Date End Date Paul Olivarez MD [address] [place] [id number] PCP - General Internal Medicine 06/26/19 documented as of this encounter
--- OUTSIDE RECORDS SUMMARY | 2024-04-11 15:52 | XMS_ITS | Continuity of Care Document ---
Author Organization [facility] Address [address] [place] [phone] Phone Care Team Providers Care Grades 9 Thru 12 Visiting Teacher Name Role Phone Unavailable Unavailable Unavailable Advance Directives Directive Yes / No Effective Date File Name No Information Encounters Encounter Description Practice Location Reason(s) For Visit Diagnoses Date Provider Providers Copied on Encounter [facility], [address] [place] [address], [place], [place], [id number], [place] tel:[phone] [facility] No Information Dec-201 2 No Information Family History Family Member Type Diagnosis Age At Onset No Information Payers Payer name Insurance type Covered democrat ID Authoriza tion(s) No Information Social History Type Description Quantity Date Captured Comments Sex Female Smoking Status No Information Chief Complaint And Reason For Visit No Information Reason For Referral Reason For Referral No Information History Of Present Illness Encounter Date Complaint History Of Prese nt Illness No Information Functional Status Date Functional Assessmen t No Information Instructions Date Instruction Additional Infor mation No Information Assessments Type Assessment Date No Information Patient Care Teams Name Effective Dates (start - stop) Status Members No Information
--- OUTSIDE RECORDS SUMMARY | 2024-04-11 15:52 | XMS_ITS | Encounter Summary ---
Author Organization [employer] Address [address] [facility] [address] [place] [address] Care Team Providers Care Wireless Store Manager Name Role Phone Paul Olivarez MD Primary Care Prov ider Encounter Details Date Type Department Care Team (Late st Contact Info) Description 06/01/2023 Orders Only [facility] [address] [place] [address] ProviderRin MD Social History Tobacco Use Types Packs/Day Years [...] Procedure Name Priority Date/Time Associated Diagnosis Comments HM COLONOSCOPY Routine 11/11/2020 2:28 PM EDT documented in this encounter Results * Hm Colonoscopy (11/11/2020 2:28 PM EDT) us Historical Provider HEALTH MAINTENANCE Final Result documented in this encounter Visit Diagnoses Not on filedocumented in this encounter Additional Health Concerns Assessment Noted Time PHQ-9 Depression Total Score: 0 04/22/19 24 8:35 AM EST documented as of this encounter Care Teams Wireless Store Manager Relationship Specialty Start Date End Date Paul Olivarez MD [address] [place] [id number] PCP - General Internal Medicine 06/26/19 documented as of this encounter
== END 2024-04-11 13:00 | disposition home or self-care (01) ==
LOC: HO.MAMMO 12:59
PROVIDERS: PCP Internal Medicine; Visit Provider Internal Medicine
DX: Z12.31 Encounter for screening mammogram for malignant neoplasm of breast (principal)
CPT/HCPCS: 77063; 77067

== ENCOUNTER → 2024-04-11 13:15 | Outpatient (BNV) | payer MEDICARE, MEDICAID, SELFPAY | PROVIDERS: PCP Internal Medicine; Visit Provider Internal Medicine | DX: Z12.31 Encounter for screening mammogram for malignant neoplasm of breast (principal) | CPT/HCPCS: 77063; 77067 ==

== ENCOUNTER 2024-04-20 12:20 | Outpatient (AMB) | payer MEDICARE, MEDICAID, SELFPAY ==
--- NOTE | 2024-04-20 12:23 | MHC.OFFVIS ---
Vital Signs 04/20/24 12:31 Height 5 ft 4 in Weight 158 lb BMI 27.1 BP 100/59 L Blood Pressure Location Lt brachial Position Sitting Pulse 81 Pulse Oximetry (%) 98 Oxygen Delivery Method Room Air Intake Visit Reasons: 3 month follow up Intake Note: Patient 3 month follow up for acid reflex Patient cc: constipation, and acid reflex on and off medication is helping her with GERD. Gas Meter Repairer Required: No Accompanied by: Self / Same As Patient Allergies No Known Allergies Allergy (Verified 04/20/24 12:29) Medication List - Last Reconciled 04/20/24 by Melo Benz MD bupropion HCl XL 300 mg PO QAM famotidine 20 mg PO .daily 90 days inhalational spacing device As directed lorazepam 1 mg PO BID omeprazole 40 mg PO DAILY 30 days ondansetron 4 mg PO Q8H risperidone 1 mg PO BEDTIME HPI HPI 3 month follow up: Details: GI clinic visit for this 53 Y for FU of GERD and abdominal pain TODAY'S VISIT: Patient cc: Patient cc: constipation, and acid reflex on and off medication is helping her with GERD. Took antibiotics for H Pylori which helped with her UGI symptoms Can still have reflux symptoms if she takes some irritating foods Complains of constipation and may have to wait 1.5 weeks to have a BM Takes prune juice which helps. Tried OTC medications (Dulcolax) which were not helpful EGD and biopsy results were reviewed with the patient - gastric biopsies are positive for Helicobacter pylori Complains of intermittent nausea - sometimes on an empty stomach. Patient complains of heartburn (2-3 times a week) and denies dysphagia, vomiting, change in appetite or weight. Denies recent change in bowel habits, constipation, diarrhea, black stools or rectal bleeding. Patient denies major cardiac or pulmonary problems, loud snoring or sleep apnea Denies problems with anesthesia in the past. Denies being on chronic anticoagulation. Patient denies known family history of colon polyps, colon cancer or other GI malignancies. LABS IN [facility] : Reviewed IMAGING STUDIES: Reviewed ENDOSCOPIC STUDIES: 12/20/23 EGD SHOWED: ESOPHAGUS: A single 1.5 cms superficial erosion at the GE junction STOMACH: Mild diffuse gastric erythema - biopsies were obtained from the antrum. Plan: Pt advised to take famotidine 20 mg daily at bedtime in addition to omeprazole 40 mg in the a.m. BIOPSIES SHOWED: A. Small bowel, biopsy: Small intestinal mucosa within normal limits; negative for celiac disease. B. Stomach, antrum, biopsy: - Antral-type mucosa with severe chronic active inflammation. - Positive for H pylori. C. Stomach, body, biopsy: - Oxyntic mucosa with moderate chronic active inflammation. - Positive for H pylori PAST GI HISTORY BY REVIEW OF MEDICAL RECORDS: 06/2023 SEEN BY STEPHANIE POZO: A 52 y/o female with nausea and epigastric pain for the past 2 months-sx are not daily- she has increased fatigue Went to ED in March- due to vomiting, prescribed omeprazole 40 mg -she has had no further vomiting, she is only taking 2 or sometimes 3 days a week-now has noticed nausea and abdominal pain does feel somewhat better days that she does take PPI. Zofran -tries to hold off however needs it several times a week Appetite is fairly good, some days she does not eat due to the nausea Bowels- ok Abdominal U/S- normal per pt- in [place] She has no vomiting, fever chills. No new medications Colonoscopy up-to-date Dr. Benz EGD with PPI-daily Reflux precautions Patient Instructions: EGD with -discussed procedure rare risks need for escort PPI-daily- Reflux precautions avoid culprits Encouraged to call with questions or concerns Follow-up with PCP as schedule [facility] Medical History (Updated 04/20/24 @ 12:26 by Melo Benz MD) Diverticulosis GERD (gastroesophageal reflux disease) Anxiety Surgical History H/O removal of cyst (10/20/22) Hx of colonoscopy History of esophagogastroduodenoscopy (EGD) Hx of appendectomy Family History Father Pancreatic cancer Mother Ovarian cancer Social History Household Members Other:: - 2 kids Are you a primary furnace caretaker to a significant other at home: No Do you presently have visiting nurse or other home services: No Alcohol intake: never Patient Tobacco Use Status: Never used Tobacco Current occupational status: disabled Review of Systems Const All systems reviewed & are unremarkable except as noted in HPI and below ENT Reports Normal hearing present Neuro Reports Normal hearing present and Denies Abnormal speech present Physical Exam Const General: healthy appearing and no acute distress Nutritional Appearance: average body habitus Orientation/consciousness: patient oriented x3 Limitations: no limitations HEENT Head: Yes normal to inspection Ears: hearing grossly normal bilaterally Eyes Sclerae: sclerae normal Pupils: Equal, round and reactive pupils present Neck Neck: Yes normal visual inspection Chest Chest palpation & inspection: normal inspection of the chest Resp Effort & Inspection: normal respiratory effort Auscultation: clear to auscultation bilaterally Cardio Palpation: normal PMI Rate: regular rate Rhythm: regular rhythm Heart sounds: S1 normal heart sound present, S2 normal heart sound present and no murmurs GI Palpation (GI): Soft to palpation, nontender and No hepatosplenomegaly present Auscultation: normal bowel sounds Rectal Exam - Female: deferred Skin General skin exam: no rashes or lesions noted Neuro General: patient oriented x3, gait normal and moves all extremities Cranial nerves: Yes Equal, round and reactive pupils present and Yes Normal hearing present Speech: No Abnormal speech present Psych Appearance: grossly normal Mental Status: mental status grossly normal Assessment & Plan Assessment & Plan (1) Chronic constipation: Comment: Maintain high-fiber diet, may take fiber supplements Citrucel Bowel regimen Code(s): K59.09 - Other constipation Category: Medical (2) Diverticulosis of colon: Comment: Maintain high-fiber diet Diverticulitis/diverticulosis Repeat asymptomatic screening colonoscopy 10 year Code(s): K57.30 - Diverticulosis of large intestine without perforation or abscess without bleeding Category: Medical (3) Acid reflux: Code(s): K21.9 - Gastro-esophageal reflux disease without esophagitis Category: Medical (4) Nausea: Comment: Try to identify culprits Code(s): R11.0 - Nausea Category: Medical (5) Epigastric pain: Comment: Reviewed labs-enzymes normal Code(s): R10.13 - Epigastric pain Category: Medical (6) Helicobacter pylori gastritis: Code(s): K29.70 - Gastritis, unspecified, without bleeding; B96.81 - Helicobacter pylori [H. pylori] as the cause of diseases classified elsewhere Category: Medical (7) Encounter for screening colonoscopy: Comment: 10/2020 no polyps detected on colonoscopy. FU colon in 10 yrs Code(s): Z12.11 - Encounter for screening for malignant neoplasm of colon Category: Medical Plan 53 Y for FU of GERD and abdominal pain to discuss EGD results EGD and biopsy results were reviewed with the patient - gastric biopsies are positive for Helicobacter pylori Complains of intermittent nausea - sometimes on an empty stomach. Patient complains of heartburn (2-3 times a week) and denies dysphagia, vomiting, change in appetite or weight. Pt prescribed antibiotics for H Pylori infection. 04/20/24 H Pylori breath test today (pt stopped taking Omeprazole 2 weeks before her appt) Senna + karan every other day for constipation. Fu in 6 months Orders: Orders H Pylori Breath Test Today Medications: New sennosides-docusate sodium 8.6-50 mg (Senna with Docusate Sodium) Please take every other day at bedtime 2 tab-caps (2 x 8.6-50 mg) PO BEDTIME 60 days 120 tabs 2RF Coding Level of Care Code Est Pt Level 3 (16531) Diagnoses Chronic constipation K59.09 Diverticulosis of colon K57.30 Acid reflux K21.9 Nausea R11.0 Epigastric pain R10.13 Helicobacter pylori gastritis K29.70; B96.81 Encounter for screening colonoscopy Z12.11 Time Spent (min) 18
[2024-04-20 12:31] VITALS: BP 100/59; PULSE 81; O2SAT 98; BMI 27.1
--- OUTSIDE RECORDS SUMMARY | 2024-04-20 14:51 | XMS_ITS | Clinical Summary ---
Author Organization [employer] Address [address] [facility] 7t [place] [address] Care Team Providers Care Medical Coding Technician Name Role Phone Paul Olivarez MD [...] HOURS 60 tablet 2 02/28/19 25 Active lidocaine (Lidoderm) 5 % patchIndicatio ns:Contusion of soft tissue,Lumbar sprain, initial encounter Apply 1 patch topically Once per day. Remove & discard patch within 12 hours or as directed by MD. 30 patch 03/13/19 25 Active naproxen (Naprosyn) 500 MG tabletIndicati ons:Contusion of soft tissue,Lumbar sprain, initial encounter TAKE 1 TABLET(500 MG) BY MOUTH TWICE DAILY 60 tablet 04/12/19 25 Active methocarbamol (Robaxin) 750 MG tabletIndicati ons:Contusion of soft tissue,Lumbar sprain, initial encounter Take 1 tablet (750 mg) by mouth 4 times daily for 10 days. 40 tablet 04/10/19 25 Active naproxen (Naprosyn) 500 MG tablet TAKE 1 TABLET BY MOUTH WITH BREAKFAST AND WITH EVENING MEAL 60 tablet 2 02/23/19 25 025 Discontinued methocarbamol (Robaxin) 750 MG tabletIndicati ons:Contusion of soft tissue,Lumbar sprain, initial encounter Take 1 tablet (750 mg) by mouth 4 times daily for 10 days. 40 tablet 03/13/19 25 025 Discontinued(Re order (will not trigger notification to Pharmacy)) naproxen (Naprosyn) 500 MG tabletIndicati ons:Contusion of soft tissue,Lumbar sprain, initial encounter Take 1 tablet (500 mg) by mouth 2 times daily. 60 tablet 03/13/19 25 025 Discontinued Active Problems Problem Noted Date Diagnosed Date Weight gain 04/22/2023 Assessment & Plan (04/22/2023 9:26 AM EST): Patient refers gaining weight, most likely related to SNRI, will also send for blood test to rleout secondary causes Epigastric abdominal pain 03/31/2023 Assessment [...] for a hospital F/U. She was at [facility] on 03/29/23 for stomach pain. She had [...] Center 04/01/2023 10:00 AM Rhonda Kirkpatrick DDS [facility] 04/15/2023 1:15 PM Paul Brock MD [facility] Cluster headaches 11/20/2022 Assessment & Plan (11/20/2022 [...] Encounters Date Type Department Care Team Description 04/11/2024 Orders Only [facility] MED & PEDS [address] [place] [address] Paul Olivarez MD 04/10/2024 9:45 AM EST Telemedicine [facility] MED & PED[facility] [address] [place] [address] Paul Olivarez MD Fibromyalgia (Primary Dx); Contusion of soft tissue; Lumbar sprain, initial encounter 04/10/2024 Travel 04/10/2024 Refill [facility] MED & PEDS [address] [place] [address] Parrish Del Rio MD Contusion of soft tissue; Lumbar sprain, initial encounter 03/13/2024 2:45 PM EST Office Visit [facility] [address] [place] [address] Parrish Del Rio MD Contusion of soft tissue (Primary Dx); Lumbar sprain, initial encounter; Fall, subsequent encounter 03/13/2024 Travel 03/13/2024 Telephone [facility] MEDICINE [address] [place], [place] [phone] Paul Olivarez MD Nurse Triage; ER Follow-up 02/29/2024 Refill [facility] MED & PEDS [address] [place] [address] Paul Olivarez MD 02/24/2024 Refill [facility] PED[facility] [address] [place] [address] Paul Olivarez MD from Last 3 Months [...] Smear 06/26/2023 06/25/2020 COVID-19 Vaccine (3 - season) 2023 07/03/2020, 06/12/2020 Influenza Vaccine (#1) 2023 02/25/2023, 2021 Depression Screening 04/21/2024 04/22/2023, 04/22/19 24 SDOH Screening 04/21/2024 04/22/2023 Dental Oral Exam 06/16/2024 12/17/2023 Dental Prophylaxis 06/16/2024 12/17/2023 Dental X-Ray: Bitewings 12/17/2024 12/17/2023 Tobacco Screening 03/13/2025 03/13/2024 DTaP/Tdap/Td Vaccines (2 - Td or Tdap) 03/28/2025 03/28/2015 Cervical Cancer Screening 06/25/2025 HPV/Cotest 06/25/2025 06/25/2020 Mammogram 04/11/2026 04/11/2024, 02/17, 06/05/2021, Additional history exists Dental X-Ray: Full Mouth 12/17/2026 12/17/2023 Colonoscopy 11/11/2030 11/11/2020 Colorectal Cancer Screening 11/11/2030 RSV Patients and Patients Aged 60 years or older (1 - 1-dose 75+ series) 07/27/2043 HIV Screening Completed 05/21/2021 Hepatitis C Screening Completed 09/21/2022, 022 HIB Vaccines Aged Out No longer eligi [...] Procedure Name Priority Date/Time Associated Diagnosis Comments BI MAMMOGRAM SCREENING TOMOSYNTHESIS BILATERAL Routine 04/11/2024 1:10 PM EST PROPHYLAXIS - ADULT Routine 12/17/2023 1 1:00 AM EDT INTRAORAL - COMPLETE SERIES OF RADIOGRAPHIC IMAGES Routine 12/17/2023 11:00 AM EDT PERIODIC ORAL EVALUATION - ESTABLISHED PATIENT Routine 12/17/2023 11:00 AM EDT HEPATITIS C VIRAL RNA, QUANTITATIVE, REAL-TIME PCR [...] Results * BI Mammogram Screening Tomosynthesis Bilateral (04/11/2024 1:10 PM EST) Anatomical Region Laterality Modality Breast Bilateral Mammography 04/11/2024 1:10 PM EST Narrative 04/15/2024 4:47 PM EST ? [facility] ? [address] ?[place] [address] ? Mammography Report ? Signed ? Patient: Rola Vega,Jenn ?MR#: M ?? [id number] ? : 1970 ?Acct:[id number] ? Age/Sex: 53 / F ?ADM Date: 04/11/24 ? Loc: HO.MAMMO ? Attending Dr: Paul Brock MD ? Ordering Physician: Paul Olivarez MD ?Res ?? ults: 1Negative ? Date of Service: 04/11/24 ?Follow Up: 1 Year From Orig ?? inal Mammogram ? Procedure(s): MM tomosynthesis screening BI ?? Accession Number(s): [id number] ? cc: Paul Olivarez MD ? EXAMINATION: ?? MM SCREENING DIGITAL BREAST TOMOSYNTHESIS, BILATERAL ? CLINICAL INFORMATION: ? Screening. Asymptomatic. ? COMPARISON: ?? Mammography: Comparison is made with available priors ? TECHNIQUE: ?? Digital breast mammography with tomosynthesis is performed in both the ?? craniocaudal and mediolateral oblique views along with computer-aided ?? detection (CAD). ? FINDINGS: ?? There are scattered areas [...] due date for their next mammogram. ? Electronically signed by: ??Shahla Meyers DO ??04/15/2024 04:44 PM EST ? Dictated By: ?Shahla Meyers DO ? Signed By: ?<Electronically signed by Shahla Meyers, DO in OV> ? 04/15/24 1644 ? DD/ 1310 ? TD/TT: 04/11/24 1325 ? Packaging Clerk: ? Procedure Note Leah, Image - 04/15/2024 [facility] [address] [place] [address] Mammography Report Signed Patient: Jenn Baxter#: M [id number] : 1970Acct:[id number] Age/Sex: 53 / FADM Date: 04/11/24 Loc: HO.MAMMO Attending Dr: Paul Brock MD Ordering Physician: Paul Olivarez ults: 1Negative Date of Service: 04/11/24Follow Up: 1 Year From Orig inal Mammogram Procedure(s): MM tomosynthesis screening BI Accession Number(s): [id number] cc: Paul Olivarez MD EXAMINATION: MM SCREENING DIGITAL BREAST TOMOSYNTHESIS, BILATERAL CLINICAL INFORMATION: Screening. Asymptomatic. COMPARISON: Mammography: Comparison is made with available priors TECHNIQUE: Digital breast mammography with tomosynthesis is performed in both the craniocaudal and mediolateral oblique views along with computer-aided detection (CAD). FINDINGS: There are scattered areas of fibroglandular [...] target due date for their next mammogram. Electronically signed by: Shahla Meyers DO 04/15/2024 04:44 PM EST RP Dictated By: Shahla Meyers DO Signed By: <Electronically signed by Shahla Meyers DO in OV> 04/15/24 1644 DD/ 1310 TD/TT: 04/11/24 1325 Packaging Clerk: Paul Brock MD IMG BI PROCEDURES Final Result * Hepatitis C Viral RNA, Quantitative, Real-Time PC (09/21/2022 11:59 AM EDT) Hepatitis C Viral Load <15 NOT DETECTED NOT DETECTED IU/mL [facility] HCV Log PCR <1.18 NOT DETECTED NOT DETECTED Log IU/mL [facility] Comment:This test was perfor med using Real-Time Polymerase ChainReaction.Reportable Range: 15 IU/mL to 100,000,000 IU/mL(1.18 Log IU/mL to 8.00 Log IU/mL).The analytical performance characteristics of thisassay have been determined by [employer].The modifications have not been cleared or approved bythe FDA. This assay has been validated pursuant to theCLIA regulations and is used for clinical purposes.For more information on this test, go to:http://education.Qraved/faq/VUS16v0(This link is being provided for informational/educational purposes only.)THIS TEST WAS PERFORMED AT:[employer] [place] [id number] WILCOX MD Blood 09/21/2022 11:5 9 AM EDT 09/21/2022 2:16 PM EDT Paul Brock MD LAB BLOOD ORDERABL ES Final Result Performing Organization Address City/[facility]/ZIP Co de Phone Number [facility] [address] [place] [address] [phone] * HIV 1/2 ANTIGEN/ANTIBODY,FOURTH GENERATION W/RFL (05/21/2021 10:07 AM EDT) Pathologist [facility] HIV-1/2 ANTIGEN AND ANTIBODIES, 4TH GENERATION W/ REFLEX NON-REACT BARRETT NON-REACT BARRETT [facility] Comment: HIV-1 antigen and HIV-1/HIV-2 [...] ? For additional information please refer to http://education.Instant Information.Myngle/faq/WLT265 (This link is being provided for informational/ educational purposes only.) ? The performance of this assay has not been clinically validated in patients less than 2 years old. ?? 05/21/2021 10:0 7 AM EDT Paul Brock MD LAB BLOOD ORDERABL ES Final Result Performing Organization Address City/[facility]/ZIP Co de Phone Number [facility] [address] [place] [address], * Hm Colonoscopy (11/11/2020 2:28 PM EDT) Rin Valdez MD HEALTH MAINTENANCE Final Result * THINPREP PAP (06/25/2020 10:49 AM EDT) Clinical Information: MENOPAUSE [facility] COMMENT SEE COMMENT [facility]OUND[facility] ON [...] historic and ?? current clinical information. ?? Security Messenger: SEE COMMENT [facility] Comment: BK,CT(ASCP) CT screening location: [address] Interpretation/Res ult: SEE COMMENT [facility] Comment: Negative for intraepithelial lesion or malignancy. Atrophic pattern; predominantly parabasal cells LMP: NIL 2012 [facility] Prev. BX: [facility] Prev. PAP: PRIOR H/O ABNL PAP 2015 [facility] SOURCE: None given [facility] Statement Of Adequacy: SATISFACTORY FOR EVALUATION [facility] 06/25/2020 10:4 9 AM EDT Ora CORTES LAB PATHOLOGY ORDERABLES Final Result [facility] [address] * HPV mRNA E6/E7 (06/25/2020 10:49 AM EDT) HPV nRNA E6/E7 Not Detected Not Detected [facility] Comment: Methodology: Featheredge Machine Operator-Mediated Amplification This assay detects E6/E7 viral messenger RNA (mRNA) from 14 high-risk HPV types (16,18,31,33,35,39,45,51,52,56,58,59,66,68). ? The analytical performance characteristics of this assay have been determined by [employer]. The modifications have not been cleared or approved by the FDA. This assay has been validated pursuant to the CLIA regulations and is used for clinical purposes. ?? For additional information, please refer to http://education.Instant Information.Myngle/faq/QKD425m8 (This link if provided for information/ educational purposes only.) 06/25/2020 10:4 9 AM EDT Ora Quiros CN LAB BLOOD ORDERABLES Dorina claire Result [facility] [address] from Last 3 Months or Most Recently Relevant to Health Maintenance [place] [address] [place] [address] AARP MEDICARE ADVANTAGE HMO DENTAL-[facility] MEDICAID STAND ADULT DENTAL [facility] Care Teams Medical Coding Technician Relationship Specialty Start Date End Date Paul Olivarez MD [address] [place] [address] PCP - General Internal Medicine 06/26/19
--- OUTSIDE RECORDS SUMMARY | 2024-04-20 14:51 | XMS_ITS | Encounter Summary ---
Author Organization [employer] Address [address] [facility] 7t [place] [address] Care Team Providers Care Automobile Club Information Clerk Name Role Phone Paul Olivarez MD Primary Care Prov ider Encounter Details Date Type Department Care Team (Late st Contact Info) Description 06/15/2022 Orders Only [facility] MED & PEDS [address] [place], [place] [phone] Paul Olivarez MD [address] [place], [place] [phone] Fibromyalgia Social History Tobacco Use Types Packs/Day [...] documented as of this encounter Care Teams Automobile Club Information Clerk Relationship Specialty Start Date End Date Paul Olivarez MD [address] [place], [place] [phone] PCP - General Internal Medicine 06/26/19 documented as of this encounter
--- OUTSIDE RECORDS SUMMARY | 2024-04-20 14:51 | XMS_ITS | Continuity of Care Document ---
Author Organization [facility] Address [address] [place] [phone] Phone Care Team Providers Care Alteration Hand Name Role Phone Unavailable Unavailable Unavailable Advance Directives Directive Yes / No Effective Date File Name No Information Encounters Encounter Description Practice Location Reason(s) For Visit Diagnoses Date Provider Providers Copied on Encounter [facility], [address] [place] [address], [place], [place], [id number], [place] tel:[phone] [facility] No Information Dec-201 2 No Information Family History Family Member Type Diagnosis Age At Onset No Information Payers Payer name Insurance type Covered constitution party ID Authoriza tion(s) No Information Social History [...]
--- OUTSIDE RECORDS SUMMARY | 2024-04-20 14:51 | XMS_ITS | Encounter Summary ---
Author Organization [employer] Address [address] [facility] [address] [place] [address] Care Team Providers Care Clay Dry Press Helper Name Role Phone Paul Olivarez MD Primary Care Prov ider Reason for Referral * Consultation (Routine) - Closed Specialty Diagnoses / Procedures Referred By Amber liz Referred To Contact Physical Therapy Diagnoses Lumbar sprain, initial encounter Paul Olivarez MD [address] [place] [address] Phone: tel: fax: Physical Therapy, AT [address] [place] [address] Phone: tel: fax: Referral ID Status Reason Start Date Expiration Date V isits Requested Visits Authorized [id number] Closed Specialty Services Required 04/10/2024 04/10/2025 1 1 Encounter Details Date Type Department Care Team (Late st Contact Info) Description 04/10/2024 9:45 AM EST Telemedicine [facility] MED & PEDS [address] [place] [address] Paul Olivarez MD [address] [place], [place] [phone] Fibromyalgia (Primary Dx); Contusion of soft tissue; [...] documented as of this encounter Care Teams Clay Dry Press Helper Relationship Specialty Start Date End Date Paul Olivarez MD [address] [place] [phone] PCP - General Internal Medicine 06/26/19 documented as of this encounter
--- OUTSIDE RECORDS SUMMARY | 2024-04-20 14:51 | XMS_ITS | Encounter Summary ---
Author Organization [employer] Address 75 [facility] 7t [place] [address] Care Team Providers Care Taxation Agent Name Role Phone Paul Olivarez MD Primary Care Prov ider Encounter Details Date Type Department Care Team ([facility] st Contact Info) Description 04/11/2024 Orders Only [facility] MED & PEDS [address] [place] [address] Paul Olivarez MD [address] [place] [address] Social History Tobacco Use Types Packs/Day Years [...] t he electric, gas, oil or water [employer] threatened to shut off services in your [...] TOMOSYNTHESIS BILATERAL Routine 04/11/2024 1:10 PM EST documented in this encounter Results * BI Mammogram Screening Tomosynthesis Bilateral (04/11/2024 1:10 PM EST) Anatomical Region Laterality Modality Breast Bilateral Mammography 04/11/2024 1:10 PM EST Narrative 04/15/2024 4:47 PM EST ? [facility] [place] ? [address] ?[place] [address] ? Mammography Report ? Signed ? Patient: CanelaJenn Baez ?MR#: M ?? [id number] ? : 1970 ?Acct:[id number] ? Age/Sex: 53 / F ?ADM Date: 02/25/25 ? Loc: HO.MAMMO ? Attending Dr: Paul Brock MD ? Ordering Physician: Paul Olivarez MD ?Res ?? ults: 1Negative ? Date of Service: 04/11/24 ?Follow Up: 1 Year From Orig ?? inal Mammogram ? Procedure(s): MM tomosynthesis screening BI ?? Accession Number(s): [id number] ? cc: Paul Olivarez MD ? EXAMINATION: [...] ??Shahla Meyers DO ??04/15/2024 04:44 PM EST ?? RP ? Dictated By: ?Shahla Meyers DO ? Signed By: ?<Electronically signed by Shahla Meyers, DO in OV> ? 04/15/24 1644 ? DD/ 1310 ? TD/TT: 04/11/24 1325 ? Automotive Mechanic: ? Procedure Note Leah, Image - 04/15/2024 [facility] [address] [place], [place] [address] Mammography Report Signed Patient: Jenn BaxterMR#: M [id number] : 1970Acct:[id number] Age/Sex: 53 / FADM Date: 04/11/24 Loc: HO.MAMMO Attending Dr: Paul Brock MD Ordering Physician: Paul Olivarez ults: 1Negative Date of Service: 04/11/24Follow Up: 1 Year From Orig ina Mammogram Procedure(s): MM tomosynthesis screening BI Accession Number(s): [id number] cc: Paul Olivarez MD EXAMINATION: MM SCREENING [...] Shahla Meyers DO 04/15/2024 04:44 PM EST Dictated By: Shahla Meyers DO Signed By: <Electronically signed by Shahla Meyers DO in OV> 04/15/24 1644 DD/ 1310 TD/TT: 04/11/24 1325 Automotive Mechanic: us Paul Brock MD IMG BI PROCEDURES Final Result documented in this encounter Visit Diagnoses Not on filedocumented in this encounter Additional Health Concerns Assessment Noted Time PHQ-9 Depression Total Score: 0 04/22/19 24 8:35 AM EST documented as of this encounter Care Teams Taxation Agent Relationship Specialty Start Date End Date Paul Olivarez, MD [address] [place] [phone] PCP - General Internal Medicine 06/26/19 documented as of this encounter
--- OUTSIDE RECORDS SUMMARY | 2024-04-20 14:51 | XMS_ITS | Encounter Summary ---
Author Organization [employer] Address 75 [facility] 7t [place] [address] Care Team Providers Care Web Solutions Architect Name Role Phone Paul Olivarez MD Primary Care Prov ider Encounter Details Date Type Department Care Team (Late st Contact Info) Description 06/01/2023 Orders Only [facility] MEDICINE [address] [place] [address] ProviderRin MD Social History Tobacco Use Types [...] documented as of this encounter Care Teams Web Solutions Architect Relationship Specialty Start Date End Date Paul Olivarez MD [address] [place] [address] PCP - General Internal Medicine 06/26/19 documented as of this encounter
--- OUTSIDE RECORDS SUMMARY | 2024-04-20 14:51 | XMS_ITS | Encounter Summary ---
Author Organization [employer] Address 75 [facility] 7t [place] [address] Care Team Providers Care Exercise Equipment Repair Technician Name Role Phone Paul Olivarez MD Primary Care Prov ider Reason for Visit * Reason Onset Date Comments case back from lab? 06/09/2023 Encounter Details Date Type Department Care Team ([facility] st Contact Info) Description 06/09/2023 Telephone [facility] ADULT DENTAL [address] [place] [address] Rhonda Kirkpatrick, OMEGA [address] [place] [address] case back from lab? Social History Tobacco [...] documented as of this encounter Care Teams Exercise Equipment Repair Technician Relationship Specialty Start Date End Date Paul Olivarez MD [address] [place] [phone] PCP - General Internal Medicine 06/26/19 documented as of this encounter
--- OUTSIDE RECORDS SUMMARY | 2024-04-20 14:51 | XMS_ITS | Encounter Summary ---
Author Organization [employer] Address 75 [facility] 7t [place] [address] Care Team Providers Care Garbage Collector Driver Name Role Phone Paul Olivarez MD Primary Care Prov ider Encounter Details Date Type Department Care Team (Latest Contact Info) Description 08/08/2018 Abstract [facility] CONVERSIONS Dental, Provider, DDS Social History Tobacco [...] on filedocumented in this encounter Care Teams Garbage Collector Driver Relationship Specialty Start Date End Date Paul Olivarez MD [address] [place] [address] PCP - General Internal Medicine 06/26/19 documented as of this encounter
--- OUTSIDE RECORDS SUMMARY | 2024-04-20 14:51 | XMS_ITS | Encounter Summary ---
Author Organization [employer] Address 75 [facility] 7t [place] [address] Care Team Providers Care Laundry Or Dry Cleaners Counter Clerk Name Role Phone Paul Olivarez MD [...] documented as of this encounter Care Teams Laundry Or Dry Cleaners Counter Clerk Relationship Specialty Start Date End Date Paul Olivarez MD [address] [place] [address] PCP - General Internal Medicine 06/26/19 documented as of this encounter
--- OUTSIDE RECORDS SUMMARY | 2024-04-20 14:51 | XMS_ITS | Encounter Summary ---
Author Organization [employer] Address 75 [facility] [address]t [place] [address] Care Team Providers Care Creative Producer Name Role Phone Paul Olivarez MD Primary Care Prov ider Encounter Details Date Type Department Care Team (Late st Contact Info) Description 01/13/2022 Abstract [facility] DENTAL [address] [place], [place] [phone] Dental, Provider, DDS Social History Tobacco Use [...] on filedocumented in this encounter Care Teams Creative Producer Relationship Specialty Start Date End Date Paul Olivarez MD [address] [place] [phone] PCP - General Internal Medicine 06/26/19 documented as of this encounter
--- OUTSIDE RECORDS SUMMARY | 2024-04-20 14:51 | XMS_ITS | Encounter Summary ---
Author Organization [employer] Address [address] [facility] 7t [place] [address] Care Team Providers Care Income Tax Consultant Name Role Phone Paul Olivarez MD Primary Care Prov ider Reason for Visit * Reason Onset Date Comments Med Refill 08/26/2023 Encounter Details Date Type Department Care Team (Late st Contact Info) Description 08/26/2023 Telephone [facility] MEDICINE [address] [place] [address] Pual Olivarez MD [address] [place], [place] [phone] Med Refill Social History Tobacco Use Types [...] 2 MG tablet To be sent to: [id number] - [place], [place] - [address] [place] [address] AT [facility] Pt out of medication and Psychiatrist is on Vacation documented in this encounter Plan of Treatment Not on file documented as of this encounter Visit Diagnoses Not on filedocumented in this encounter Additional Health Concerns Assessment Noted Time PHQ-9 Depression Total Score: 0 04/22/19 24 8:35 AM EST documented as of this encounter Care Teams Income Tax Consultant Relationship Specialty Start Date End Date Paul Olivarez MD [address] [place] [phone] PCP - General Internal Medicine 06/26/19 documented as of this encounter
--- OUTSIDE RECORDS SUMMARY | 2024-04-20 14:51 | XMS_ITS | Clinical Summary ---
Author Organization [facility] Address [address] [place] [address] Phone Care Team Providers Care Supervisor Keymodule Assembly Name Role Phone Physician, No Pcp Primary Care Provider Unavaila ble Allergies No known active allergies Medications citalopram (CeleXA) 20 mg tablet Take 1 Tab by mouth daily. 04/19/2018 Active LORazepam (ATIVAN) 1 mg tablet Take 1 Tab by mouth daily as needed for Anxiety. 04/19/2018 Active risperiDONE (RisperDAL) 2 mg tablet Take 1 Tab by mouth 2 times daily. 04/19/2018 Active methocarbamoL (ROBAXIN) 500 mg tablet Take 1 tablet (500 mg total) by mouth 2 (two) times a day for 7 days. 14 tablet 03/05/2024 Active Active Problems Problem Noted Date Diagnosed Date [...] EST - 03/05/2024 2:39 PM EST Emergency [facility] Emergency [address] [place] [address] Kathleen Cheema DO Fall, initial encounter (Primary Dx); Strain of [...] Signed Date: 03/05/2024 12:39 ET Workstation ID: [id number] Transcribed By: Self Edit Transcribed Date: 03/05/2024 [...] Signed Date: 03/05/2024 12:39 ET Workstation ID: [id number] Transcribed By: Self Edit Transcribed Date: 03/05/2024 12:38 ET us Kathleen Omalley Abelino Cheema DO IMG XR PROCEDURES Final R [...] Signed Date: 03/05/2024 12:51 ET Workstation ID: [id number] Transcribed By: Self Edit Transcribed Date: 03/05/2024 [...] Signed Date: 03/05/2024 12:51 ET Workstation ID: [id number] Transcribed By: Self Edit Transcribed Date: 03/05/2024 12:49 ET Kathleen Cheema DO IMG XR PROCEDURES Final [...] Signed Date: 03/05/2024 13:07 ET Workstation ID: [id number] Transcribed By: Self Edit Transcribed Date: 03/05/2024 [...] Signed Date: 03/05/2024 13:07 ET Workstation ID: [id number] Transcribed By: Self Edit Transcribed Date: 03/05/2024 13:06 ET us Kathleen Cheema DO IMG XR PROCEDURES Final R esult * ECG 12 lead (03/05/2024 11:46 AM EST) Ventricular Rate ECG 64 BPM GEMUSE Atrial Rate 64 BPM GEMUSE P-R Interval 148 ms GEMUSE QRS Duration 80 ms GEMUSE Q-T Interval 414 ms GEMUSE QTc 427 ms GEMUSE P Wave Drummond 42 degrees GEMUSE R Drummond 76 degrees GEMUSE T Drummond 62 degrees GEMUSE ECG Interpretation Normal sinus rhythm Normal ECG When compared with ECG of 25-NOV-2021 23:46, No significant change was found Confirmed by Gela HART, PATSY ([id number]) on 03/06/2024 6:52:07 AM GEMUSE 03/05/2024 11:4 6 AM EST 03/06/2024 6:52 AM EST us Kathleen Cheema DO ECG ORDERABLES Final Res ult GEMUSE * (ABNORMAL) CBC auto differential (03/05/2024 11:20 AM EST) WBC 3.6(L) 4.8 - 10.8 K/mcL LAB HEMETOLOGY METHOD 03/05/2024 11:30 AM [facility] RBC 4.00 3.80 - 4.80 M/mcL LAB HEMETOLOGY METHOD 03/05/2024 11:[address] [facility] Hemoglobin 12.0 11.5 - 16.0 g/dL LAB HEMETOLOGY METHOD 03/05/2024 11:30 AM [facility] Hematocrit 37.1 35.0 - 47.0 % LAB HEMETOLOGY METHOD 03/05/2024 11:30 AM [facility] MCV 93.0 79.0 - 98.0 FL LAB HEMETOLOGY METHOD 03/05/2024 11:30 AM [facility] MCH 30.1 27.0 - 32.0 pcg LAB HEMETOLOGY METHOD 03/05/2024 11:30 AM [facility] MCHC 32.3 32.0 - 37.0 g/dL LAB HEMETOLOGY METHOD 03/05/2024 11:30 AM [facility] RDW 12.9 11.0 - 15.0 % LAB HEMETOLOGY METHOD 03/05/2024 11:30 AM [facility] Platelets 302 130 - 400 K/mcL LAB HEMETOLOGY METHOD 03/05/2024 11:30 AM [facility] MPV 9.0 7.0 - 11.0 FL LAB HEMETOLOGY METHOD 03/05/2024 11:30 AM [facility] NRBC 0.0 <1.0 % LAB HEMETOLOGY METHOD 03/05/2024 11:30 AM [facility] NRBC Absolute 0.00 <0.10 K/mcL LAB HEMETOLOGY METHOD 03/05/2024 11:30 AM [facility] Neutrophils Relative 63.3 % LAB HEMETOLOGY METHOD 03/05/2024 11:30 AM [facility] Lymphocytes Relative 27.2 % LAB HEMETOLOGY METHOD 03/05/2024 11:30 AM [facility] Monocytes Relative 8.4 % LAB HEMETOLOGY METHOD 03/05/2024 11:30 AM [facility] Eosinophils Relative 0.3 % LAB HEMETOLOGY METHOD 03/05/2024 11:30 AM [facility] Basophils Relative 0.8 % LAB HEMETOLOGY METHOD 03/05/2024 11:30 AM [facility] Immature Granulocytes Relative 0.0 % LAB HEMETOLOGY METHOD 03/05/2024 11:30 AM [facility] Neutrophils Absolute 2.25 1.50 - 7.00 K/mcL LAB HEMETOLOGY METHOD 03/05/2024 11:30 AM [facility] Lymphocytes Absolute 0.97(L) 1.00 - 5.00 K/mcL LAB HEMETOLOGY METHOD 03/05/2024 11:30 AM [facility] Monocytes Absolute 0.30 0.20 - 1.00 K/mcL LAB HEMETOLOGY METHOD 03/05/2024 11:30 AM [facility] Eosinophils Absolute 0.01 0.00 - 0.50 K/mcL LAB HEMETOLOGY METHOD 03/05/2024 11:30 AM [facility] Basophils Absolute 0.03 0.00 - 0.20 K/mcL LAB HEMETOLOGY METHOD 03/05/2024 11:30 AM [facility] Immature Granulocytes Absolute 0.00 0.00 - 0.03 K/mcL LAB HEMETOLOGY METHOD 03/05/2024 11:[address] [facility] Blood Venous blood specimen / Unknown Venipuncture / Unknown 03/05/2024 11:20 AM EST 03/05/2024 11:26 AM EST Kathleen Omalley Abelino Deni VAUGHN LAB BLOOD ORDERABLES Dorina l Result Performing Organization Address [facility]/ZIP Co de Phone Number [facility] [address] [place] [address], [place] [phone] * Type and screen (03/05/2024 11:20 AM EST) ABO Group B 03/05/2024 12:[address] [facility] Rh Type Positive 03/05/2024 12:[address] [facility] Antibody Screen Negative 03/05/2024 12:[address] [facility] Blood Venous blood specimen / Unknown Venipuncture / Unknown 03/05/2024 11:20 AM EST 03/05/2024 11:26 AM EST Kathleen Cheema LAB BLOOD BANK TEST ORDER PATEL Final Result Performing Organization Address [facility]/ZIP Co de Phone Number [facility] [address] [place] [address], [place] [phone] * Basic metabolic panel (03/05/2024 11:20 AM EST) Sodium 136 133 - 145 mmol/L LAB CHEMISTRY METHOD 03/05/2024 12:[address] [facility] Potassium 4.7 3.5 - 5.5 mmol/L LAB CHEMISTRY METHOD 03/05/2024 12:[address] [facility] Comment:Hemolysis present Chloride 106 96 - 110 mmol/L LAB CHEMISTRY METHOD 03/05/2024 12:[address] [facility] CO2 27 21 - 32 mmol/L LAB CHEMISTRY METHOD 03/05/2024 12:00 PM [facility] Anion Gap 3 3 - 11 LAB CHEMISTRY METHOD 03/05/2024 12:00 PM [facility] Glucose 76 70 - 100 mg/dL LAB CHEMISTRY METHOD 03/05/2024 12:00 PM [facility] BUN 14 5 - 25 mg/dL LAB CHEMISTRY METHOD 03/05/2024 12:00 PM [facility] Creatinine 0.73 0.50 - 1.10 mg/dL LAB CHEMISTRY METHOD 03/05/2024 12:00 PM [facility] eGFR 97 >=60 mL/min/1. 73m2 LAB CHEMISTRY METHOD 03/05/2024 12:00 PM [facility] Comment:Calculation based on the??Chronic Kidney Disease Epidemiology Collaboration (CKD-EPI) equation refit??without adjustment for race. BUN/Creatinine Ratio 19.2 LAB CHEMISTRY METHOD 03/05/2024 12:00 PM [facility] Calcium 9.1 8.5 - 10.5 mg/dL LAB CHEMISTRY METHOD 03/05/2024 12:00 PM [facility] Blood Venous blood specimen / Unknown Venipuncture / Unknown 03/05/2024 11:20 AM EST 03/05/2024 11:26 AM EST Kathleen Cheema DO LAB BLOOD ORDERABLES Dorina l Result [facility] [address] [place] [address], * ECG-Annotated (03/05/2024) us Provider Onbase MD ECG ORDERABLES Final Result * Pap smear (12/17/2017) 12/17/2017 Narrative HISTORICAL TESTING LAB RESULTING AGENCY - 12/24/2017 8:17 AM EST [id number] THINPREP PAP, IMAGED: NEGATIVE FOR SQUAMOUS INTRAEPITHELIAL LESION AND MALIGNANCY . REACTIVE CELLULAR CHANGES. RAKESH CARDENAS , URBANO(ASCP) (CASE SCREENED 12 21 2017) AFBIAN RUSSELL M.D. , PATHOLOGIST (CASE ELECTRONICALLY SIGNED [...] + --> LSIL NEG COLPO, LMP 12/04/2017 Kash Grant MD LAB CYTOLOGY ORDERABLES Final Result HISTORICAL TESTING LAB RESULTING AGENCY * HIV Screening (05/14/2015) HIV Screening Abstracted Historical Provider HEALTH MAINTENANCE Final Result * Hepatitis C Screening (05/14/2015) Hepatitis C Screening Abstracted Historical Provider HEALTH MAINTENANCE Final Result from Last 3 Months or Most Recently Relevant to Health Maintenance Insurance MEDICAID - [place] [employer] MEDICARE Care Teams Supervisor Keymodule Assembly Relationship Specialty Start Date End Date Physician, No Pcp PCP - General 03/05/24
--- OUTSIDE RECORDS SUMMARY | 2024-04-20 14:51 | XMS_ITS | Encounter Summary ---
Author Organization [employer] Address [address] [facility] 7t [place] [address] Care Team Providers Care Brick Machine Operator Name Role Phone Paul Olivarez MD Primary Care Prov ider Reason for Visit * Reason Comments Med Refill Encounter Details Date Type Department Care Team ([facility] st Contact Info) Description 04/10/2024 Refill [facility] MED & PEDS [address] [place] [address] Parrish Del Rio MD [address] [place] [address] Contusion of soft tissue; Lumbar sprain, initial [...] documented as of this encounter Care Teams Brick Machine Operator Relationship Specialty Start Date End Date Paul Olivarez MD [address] [place] [phone] PCP - General Internal Medicine 06/26/19 documented as of this encounter
== END 2024-04-20 13:05 | disposition home or self-care (01) ==
PROVIDERS: PCP Internal Medicine; Visit Provider Internal Medicine Gastroenterology
DX: K59.09 Other constipation (principal); K57.30 Diverticulosis of large intestine without perforation or abscess without bleeding; K21.9 Gastro-esophageal reflux disease without esophagitis; R11.0 Nausea; R10.13 Epigastric pain; K29.70 Gastritis, unspecified, without bleeding; B96.81 Helicobacter pylori [H. pylori] as the cause of diseases classified elsewhere
CPT/HCPCS: 99213

== ENCOUNTER 2024-04-20 12:20 | Outpatient (REF) | payer MEDICARE, MEDICAID, SELFPAY ==
--- OUTSIDE RECORDS SUMMARY | 2024-04-20 19:40 | XMS_ITS | Continuity of Care Document ---
Author Organization [facility] Address [address] [place] [phone] Phone Care Team Providers Care Guest House Manager Name Role Phone Unavailable Unavailable Unavailable Advance Directives Directive Yes / No Effective Date File Name No Information Encounters Encounter Description Practice Location Reason(s) For Visit Diagnoses Date Provider Providers Copied on Encounter [facility], [address] [place] [address], [place], [id number], [place] tel:[phone] [facility][note 3] No Information Dec-201 2 No Information Family History Family Member Type Diagnosis Age At Onset No Information Payers Payer name Insurance type Covered green party ID Authoriza tion(s) No Information Social [...]
--- OUTSIDE RECORDS SUMMARY | 2024-04-20 19:40 | XMS_ITS | Encounter Summary ---
Author Organization [employer] Address [address] [facility] [address] [place] [address] Care Team Providers Care Biochemistry Specialist Name Role Phone Paul Olivarez MD Primary Care Prov ider Reason for Referral * Consultation (Routine) - Closed Specialty Diagnoses / Procedures Referred By Amber liz Referred To Contact Physical Therapy Diagnoses Lumbar sprain, initial encounter Paul Olivarez MD [address] [place] [address] Phone: tel: fax: Physical Therapy, AT [address] [place] [address] Phone: tel: fax: Referral ID Status Reason Start Date Expiration Date V isits Requested Visits Authorized [id number] Closed Specialty Services Required 04/10/2024 04/10/2025 1 1 Encounter Details Date Type Department Care Team (Late st Contact Info) Description 04/10/2024 9:45 AM EST Telemedicine [facility] CHC MED & PEDS [address] [place] [address] Paul Olivarez MD [address], [place] [phone] Fibromyalgia (Primary Dx); Contusion of soft tissue; [...] documented as of this encounter Care Teams Biochemistry Specialist Relationship Specialty Start Date End Date Paul Olivarez MD [address] [place] [phone] PCP - General Internal Medicine 06/26/19 documented as of this encounter
--- OUTSIDE RECORDS SUMMARY | 2024-04-20 19:40 | XMS_ITS | Encounter Summary ---
Author Organization [employer] Address [address] [facility] 7t [place] [address] Care Team Providers Care Wall Crane Operator Name Role Phone Paul Olivarez MD Primary Care Prov ider Encounter Details Date Type Department Care Team (Latest Contact Info) Description 08/08/2018 Abstract [facility] CONVERSIONS Dental, Provider, DDS Social History Tobacco [...] on filedocumented in this encounter Care Teams Wall Crane Operator Relationship Specialty Start Date End Date Paul Olivarez MD [address] [place] [address] PCP - General Internal Medicine 06/26/19 documented as of this encounter
--- OUTSIDE RECORDS SUMMARY | 2024-04-20 19:40 | XMS_ITS | Encounter Summary ---
Author Organization [employer] Address [address] [facility] 7t [place] [address] Care Team Providers Care Charcoal Burner Beehive Kiln Name Role Phone Paul Olivarez MD Primary Care Prov ider Encounter Details Date Type Department Care Team (Late st Contact Info) Description 01/13/2022 Abstract [facility] DENTAL [address] [place], [place] [phone] Dental, Provider, DDS Social History Tobacco Use [...] on filedocumented in this encounter Care Teams Charcoal Burner Beehive Kiln Relationship Specialty Start Date End Date Paul Olivarez MD [address] [place] [phone] PCP - General Internal Medicine 06/26/19 documented as of this encounter
--- OUTSIDE RECORDS SUMMARY | 2024-04-20 19:40 | XMS_ITS | Encounter Summary ---
Author Organization [employer] Address [address] [facility] 7t [place] [address] Care Team Providers Care Metal Extrusion Supervisor Name Role Phone Paul Olivarez MD Primary Care Prov ider Encounter Details Date Type Department Care Team (Late st Contact Info) Description 06/01/2023 Orders Only [facility] MEDICINE [address] [place] [address] ProviderRin MD Social History Tobacco Use Types [...] documented as of this encounter Care Teams Metal Extrusion Supervisor Relationship Specialty Start Date End Date Paul Olivarez MD [address] [place] [phone] PCP - General Internal Medicine 06/26/19 documented as of this encounter
--- OUTSIDE RECORDS SUMMARY | 2024-04-20 19:40 | XMS_ITS | Clinical Summary ---
Author Organization [employer] Address [address] [facility] 7t [place] [address] Care Team Providers Care Truck Driver Rubbish Collector Name Role Phone Paul Olivarez MD Primary [...] for a hospital F/U. She was at [facility] on 03/29/23 for stomach pain. She had [...] Center 04/01/2023 10:00 AM Rhonda Kirkpatrick DDS [facility] 04/15/2023 1:15 PM Paul Brock MD [facility] Cluster headaches 11/20/2022 Assessment & Plan [...] Department Care Team Description 04/11/2024 Orders Only [facility] MED & PEDS [address] [place] [address] Paul Olivarez MD 04/10/2024 9:45 AM EST Telemedicine [facility] MED & PEDS [address] [place] [address] Paul Olivarez MD Fibromyalgia (Primary Dx); Contusion of soft tissue; Lumbar sprain, initial encounter 04/10/2024 Travel 04/10/2024 Refill [facility] MED & PEDS [address] [place] [address] Parrish Del Rio MD Contusion of soft tissue; Lumbar sprain, initial encounter 03/13/2024 2:45 PM EST Office Visit [facility] [address] [place] [address] Parrish Del Rio MD Contusion of soft tissue (Primary Dx); Lumbar sprain, initial encounter; Fall, subsequent encounter 03/13/2024 Travel 03/13/2024 Telephone [facility] [address] [place], [place] [phone] Paul Olivarez MD Nurse Triage; ER Follow-up 02/29/2024 Refill [facility] MED & PEDS [address] [place] [address] Paul Olivarez MD 02/24/2024 Refill [facility] MED & PEDS [address] [place] [address] Paul Olivarez MD from Last 3 Months [...] EST Narrative 04/15/2024 4:47 PM EST ? [facility] ? [address] ?[place] [address] ? Mammography Report ? Signed ? Patient: Rola Vega,Jenn ?MR#: [id number] ?? [id number] ? : 1970 ?Acct:[id number] ? Age/Sex: 53 / F ?ADM Date: 04/11/24 ? Loc: HO.MAMMO ? Attending Dr: Paul Brock MD ? Ordering Physician: Paul Olivarez MD ?Res ?? ults: 1Negative ? Date of Service: 04/11/24 ?Follow Up: 1 Year From Orig ?? inal Mammogram ? Procedure(s): MM tomosynthesis screening BI ?? Accession Number(s): [id number] ? cc: Paul Olivarez MD ? EXAMINATION: [...] DD/ 1310 ? TD/TT: 04/11/24 1325 ? Side Stitching Machine Operator: ? Procedure Note Leah, Image - 04/15/2024 [facility] [address] [place] [address] Mammography Report Signed Patient: Jenn Baxter#: M [id number] : 1970Acct:[id number] Age/Sex: 53 / FADM Date: 04/11/24 Loc: HO.MAMMO Attending Dr: Paul Brock MD Ordering Physician: Paul Olivarez ults: 1Negative Date of Service: 04/11/24Follow Up: 1 Year From Orig inal Mammogram Procedure(s): MM tomosynthesis screening BI Accession Number(s): [id number] cc: Paul Olivarez MD EXAMINATION: MM SCREENING [...] 04/15/24 1644 DD/ 1310 TD/TT: 04/11/24 1325 Side Stitching Machine Operator: Paul Brock MD IMG BI PROCEDURES Final Result * Hepatitis C Viral RNA, Quantitative, Real-Time PC (09/21/2022 11:59 AM EDT) Hepatitis C Viral Load <15 NOT DETECTED NOT DETECTED IU/mL [facility] HCV Log PCR <1.18 NOT DETECTED NOT DETECTED Log IU/mL [facility] Comment:This test was perfor med using Real-Time Polymerase ChainReaction.Reportable Range: 15 IU/mL to 100,000,000 IU/mL(1.18 Log IU/mL to 8.00 Log IU/mL).The analytical performance characteristics of thisassay have been determined by [employer].The modifications have not been cleared or approved bythe FDA. This assay has been validated pursuant to theCLIA regulations and is used for clinical purposes.For more information on this test, go to:http://education.Sudiksha/faq/ALP54t9(This link is being provided for informational/educational purposes only.)THIS TEST WAS PERFORMED AT:[facility] [place] [id number] WILCOX MD Blood 09/21/2022 11:5 9 AM EDT 09/21/2022 2:16 PM EDT Paul Brock MD LAB BLOOD ORDERABL ES Final Result Performing Organization Address City/[facility]/ZIP Co de Phone Number [facility] [address] [place] [address] [phone] * HIV 1/2 ANTIGEN/ANTIBODY,FOURTH GENERATION W/RFL (05/21/2021 10:07 AM EDT) Pathologist [facility] HIV-1/2 ANTIGEN AND ANTIBODIES, 4TH GENERATION W/ REFLEX NON-REACT BARRETT NON-REACT BARRETT [facility] Comment: HIV-1 antigen and HIV-1/HIV-2 [...] ? For additional information please refer to http://education.Autosprite.Junk4Junk/faq/VUE615 (This link is being provided for informational/ educational purposes only.) ? The performance of this assay has not been clinically validated in patients less than 2 years old. ?? 05/21/2021 10:0 7 AM EDT Paul Brock MD LAB BLOOD ORDERABL ES Final Result Performing Organization Address City/[facility]/ZIP Co de Phone Number [facility] [address] [place] [address], * Hm Colonoscopy (11/11/2020 2:28 PM EDT) Rin Valdez MD HEALTH MAINTENANCE Final Result * THINPREP PAP (06/25/2020 10:49 AM EDT) Clinical Information: MENOPAUSE [facility] COMMENT SEE COMMENT FOUNDAT[facility] ON [...] historic and ?? current clinical information. ?? Credit Collection Associate: SEE COMMENT [facility] Comment: BK,CT(ASCP) CT screening location: [address] Interpretation/Res ult: SEE COMMENT [facility] Comment: Negative for intraepithelial lesion or malignancy. Atrophic pattern; predominantly parabasal cells LMP: NIL 2012 [facility] Prev. BX: [facility] Prev. PAP: PRIOR H/O ABNL PAP 2015 [facility] SOURCE: None given [facility] Statement Of Adequacy: SATISFACTORY FOR EVALUATION [facility] 06/25/2020 10:4 9 AM EDT Ora CORTES LAB PATHOLOGY ORDERABLES Final Result [facility] [address] * HPV mRNA E6/E7 (06/25/2020 10:49 AM EDT) HPV nRNA E6/E7 Not Detected Not Detected [facility] Comment: Methodology: Jig Builder Helper-Mediated Amplification This assay detects E6/E7 viral messenger RNA (mRNA) from 14 high-risk HPV types (16,18,31,33,35,39,45,51,52,56,58,59,66,68). ? The analytical performance characteristics of this assay have been determined by [employer]. The modifications have not been cleared or approved by the FDA. This assay has been validated pursuant to the CLIA regulations and is used for clinical purposes. ?? For additional information, please refer to http://education.Autosprite.Junk4Junk/faq/UBT900c0 (This link if provided for information/ educational purposes only.) 06/25/2020 10:4 9 AM EDT Ora Quiros CN LAB BLOOD ORDERABLES Dorina claire Result [facility] [address] from Last 3 Months or Most Recently Relevant to Health Maintenance [place] [address] [place] [address] AARP MEDICARE ADVANTAGE HMO DENTAL-[facility] MEDICAID STAND ADULT DENTAL [facility] Care Teams Truck Driver Rubbish Collector Relationship Specialty Start Date End Date Paul Olivarez MD [address] [place] [address] PCP - General Internal Medicine 06/26/19
--- OUTSIDE RECORDS SUMMARY | 2024-04-20 19:40 | XMS_ITS | Encounter Summary ---
Author Organization [employer] Address [address] [facility] 7t [place] [address] Care Team Providers Care Private Branch Exchange Installer Name Role Phone Paul Olivarez MD Primary [...] documented as of this encounter Care Teams Private Branch Exchange Installer Relationship Specialty Start Date End Date Paul Olivarez MD [address] [place] [phone] PCP - General Internal Medicine 06/26/19 documented as of this encounter
--- OUTSIDE RECORDS SUMMARY | 2024-04-20 19:41 | XMS_ITS | Clinical Summary ---
Author Organization [facility] Address [address] [place] [address] Phone Care Team Providers Care Teletype Telegrapher Name Role Phone Physician, No Pcp Primary [...] EST - 03/05/2024 2:39 PM EST Emergency [facility] [address] [place] [address] Kathleen Cheema DO Fall, initial [...] Signed Date: 03/05/2024 12:39 ET Workstation ID: [id number] Transcribed By: Self Edit Transcribed Date: 03/05/2024 [...] Signed Date: 03/05/2024 12:39 ET Workstation ID: [id number] Transcribed By: Self Edit Transcribed Date: 03/05/2024 [...] Signed Date: 03/05/2024 12:51 ET Workstation ID: [id number] Transcribed By: Self Edit Transcribed Date: 03/05/2024 [...] Signed Date: 03/05/2024 12:51 ET Workstation ID: [id number] Transcribed By: Self Edit Transcribed Date: 03/05/2024 [...] Signed Date: 03/05/2024 13:07 ET Workstation ID: [id number] Transcribed By: Self Edit Transcribed Date: 03/05/2024 [...] Signed Date: 03/05/2024 13:07 ET Workstation ID: [id number] Transcribed By: Self Edit Transcribed Date: 03/05/2024 13:06 ET us Kathleen Cheema DO IMG XR PROCEDURES Final R esult * ECG 12 lead (03/05/2024 11:46 AM EST) Ventricular Rate ECG 64 BPM GEMUSE Atrial Rate 64 BPM GEMUSE P-R Interval 148 ms GEMUSE QRS Duration 80 ms GEMUSE Q-T Interval 414 ms GEMUSE QTc 427 ms GEMUSE P Wave Erwin[place] 42 degrees GEMUSE R [place] 76 degrees GEMUSE T [place] 62 degrees GEMUSE ECG Interpretation Normal sinus [...] K/mcL LAB HEMETOLOGY METHOD 03/05/2024 11:30 AM [facility] RBC 4.00 3.80 - 4.80 M/mcL LAB HEMETOLOGY METHOD 03/05/2024 11:30 AM EST [facility] Hemoglobin 12.0 11.5 - 16.0 g/dL LAB HEMETOLOGY METHOD 03/05/2024 11:30 AM [facility] Hematocrit 37.1 35.0 - 47.0 % LAB HEMETOLOGY METHOD 03/05/2024 11:30 AM [facility] MCV 93.0 79.0 - 98.0 FL LAB HEMETOLOGY METHOD 03/05/2024 11:30 AM [facility] MCH 30.1 27.0 - 32.0 pcg LAB HEMETOLOGY METHOD 03/05/2024 11:30 AM [facility] MCHC 32.3 32.0 - 37.0 g/dL LAB HEMETOLOGY METHOD 03/05/2024 11:30 AM [facility] RDW 12.9 11.0 - 15.0 % LAB HEMETOLOGY METHOD 03/05/2024 11:30 AM [facility] Platelets 302 130 - 400 K/mcL LAB HEMETOLOGY METHOD 03/05/2024 11:30 AM [facility] MPV 9.0 7.0 - 11.0 FL LAB HEMETOLOGY METHOD 03/05/2024 11:30 AM [facility] NRBC 0.0 <1.0 % LAB HEMETOLOGY METHOD 03/05/2024 11:30 AM [facility] NRBC Absolute 0.00 <0.10 K/mcL LAB HEMETOLOGY METHOD 03/05/2024 11:30 AM [facility] Neutrophils Relative 63.3 % LAB HEMETOLOGY METHOD 03/05/2024 11:30 AM [facility] Lymphocytes Relative 27.2 % LAB HEMETOLOGY METHOD 03/05/2024 11:30 AM [facility] Monocytes Relative 8.4 % LAB HEMETOLOGY METHOD 03/05/2024 11:30 AM [facility] Eosinophils Relative 0.3 % LAB HEMETOLOGY METHOD 03/05/2024 11:30 AM [facility] Basophils Relative 0.8 % LAB HEMETOLOGY METHOD 03/05/2024 11:30 AM [facility] Immature Granulocytes Relative 0.0 % LAB HEMETOLOGY METHOD 03/05/2024 11:30 AM [facility] Neutrophils Absolute 2.25 1.50 - 7.00 K/mcL LAB HEMETOLOGY METHOD 03/05/2024 11:30 AM [facility] Lymphocytes Absolute 0.97(L) 1.00 - 5.00 K/mcL LAB HEMETOLOGY METHOD 03/05/2024 11:30 AM [facility] Monocytes Absolute 0.30 0.20 - 1.00 K/mcL LAB HEMETOLOGY METHOD 03/05/2024 11:30 AM [facility] Eosinophils Absolute 0.01 0.00 - 0.50 K/mcL LAB HEMETOLOGY METHOD 03/05/2024 11:30 AM [facility] Basophils Absolute 0.03 0.00 - 0.20 K/mcL LAB HEMETOLOGY METHOD 03/05/2024 11:30 AM [facility] Immature Granulocytes Absolute 0.00 0.00 - 0.03 K/mcL LAB HEMETOLOGY METHOD 03/05/2024 11:30 AM EST [facility] Blood Venous blood specimen / Unknown Venipuncture / Unknown 03/05/2024 11:20 AM EST 03/05/2024 11:26 AM EST Kathleen Omalley Abelino Deni VAUGHN LAB BLOOD ORDERABLES Dorina l Result Performing Organization Address [facility]/ZIP Co de Phone Number [facility] [address] [place] [address], [place] [phone] * Type and screen (03/05/2024 11:20 AM EST) ABO Group B 03/05/2024 12:17 PM EST [facility] Rh Type Positive 03/05/2024 12:17 PM EST [facility] Antibody Screen Negative 03/05/2024 12:17 PM EST [facility] Blood Venous blood specimen / Unknown Venipuncture / Unknown 03/05/2024 11:20 AM EST 03/05/2024 11:26 AM EST Kathleen Cheema LAB BLOOD BANK TEST ORDER PATEL Final Result Performing Organization Address [facility]/ZIP Co de Phone Number [facility] [address] [place] [address], [place] [phone] * Basic metabolic panel (03/05/2024 11:20 AM EST) Sodium 136 133 - 145 mmol/L LAB CHEMISTRY METHOD 03/05/2024 12:00 PM EST [facility] Potassium 4.7 3.5 - 5.5 mmol/L LAB CHEMISTRY METHOD 03/05/2024 12:00 PM EST [facility] Comment:Hemolysis present Chloride 106 96 - 110 mmol/L LAB CHEMISTRY METHOD 03/05/2024 12:00 PM EST [facility] CO2 27 21 - 32 mmol/L LAB CHEMISTRY METHOD 03/05/2024 12:00 PM [facility] Anion Gap 3 3 - 11 LAB CHEMISTRY METHOD 03/05/2024 12:00 PM [facility] Glucose 76 70 - 100 mg/dL LAB CHEMISTRY METHOD 03/05/2024 12:00 PM [facility] BUN 14 5 - 25 mg/dL LAB CHEMISTRY METHOD 03/05/2024 12:00 PM [facility] Creatinine 0.73 0.50 - 1.10 mg/dL LAB CHEMISTRY METHOD 03/05/2024 12:00 PM [facility] eGFR 97 >=60 mL/min/1. 73m2 LAB CHEMISTRY METHOD 03/05/2024 12:00 PM [facility] Comment:Calculation based on the??Chronic Kidney Disease Epidemiology Collaboration (CKD-EPI) equation refit??without adjustment for race. BUN/Creatinine Ratio 19.2 LAB CHEMISTRY METHOD 03/05/2024 12:00 PM [facility] Calcium 9.1 8.5 - 10.5 mg/dL LAB CHEMISTRY METHOD 03/05/2024 12:00 PM [facility] Blood Venous blood specimen / Unknown Venipuncture / Unknown 03/05/2024 11:20 AM EST 03/05/2024 11:26 AM EST Kathleen Cheema DO LAB BLOOD ORDERABLES Dorina l Result [facility] [address] [place] [address], * ECG-Annotated (03/05/2024) us Provider Onbase MD ECG ORDERABLES Final Result * Pap smear (12/17/2017) 12/17/2017 Narrative HISTORICAL TESTING LAB RESULTING AGENCY - 12/24/2017 8:17 AM EST [id number] THINPREP PAP, IMAGED: NEGATIVE FOR SQUAMOUS INTRAEPITHELIAL LESION AND MALIGNANCY . REACTIVE CELLULAR CHANGES. RAKESH CARDENAS , URBANO(ASCP) (CASE SCREENED 12 21 2017) FABIAN RUSSELL [...] Relevant to Health Maintenance Insurance MEDICAID - [place] [employer] MEDICARE Care Teams Teletype Telegrapher Relationship Specialty Start Date End Date Physician, No Pcp PCP - General 03/05/24
--- OUTSIDE RECORDS SUMMARY | 2024-04-20 19:41 | XMS_ITS | Encounter Summary ---
Author Organization [employer] Address [address] [facility] 7t [place] [address] Care Team Providers Care Linux Programmer Name Role Phone Paul Olivarez MD Primary Care Prov ider Encounter Details Date Type Department Care Team (Late st Contact Info) Description 06/15/[address] [facility] MED [facility] PEDS [address] [place], [place] [phone] Paul Olivarez MD [address] [place], [place] [phone] Fibromyalgia Social History Tobacco Use Types Packs/Day [...] documented as of this encounter Care Teams Linux Programmer Relationship Specialty Start Date End Date Paul Olivarez MD [address] [place], [place] [phone] PCP - General Internal Medicine 06/26/19 documented as of this encounter
--- OUTSIDE RECORDS SUMMARY | 2024-04-20 19:41 | XMS_ITS | Encounter Summary ---
Author Organization [employer] Address [address] [facility] [address]t [place] [address] Care Team Providers Care Shot Tube Machine Tender Name Role Phone Paul Olivarez MD Primary Care Prov ider Reason for Visit * Reason Onset Date Comments Med Refill 08/26/2023 Encounter Details Date Type Department Care Team (Late st Contact Info) Description 08/26/2023 Telephone [facility] MED[facility] [address] [place] [address] Paul Olivarez MD [address] [place], [place] [phone] Med Refill Social History Tobacco Use Types [...] 2 MG tablet To be sent to: [id number] - [place], [place] - [address] [place] [address] [facility] Pt out of medication and Psychiatrist is on Vacation documented in this encounter Plan of Treatment Not on file documented as of this encounter Visit Diagnoses Not on filedocumented in this encounter Additional Health Concerns Assessment Noted Time PHQ-9 Depression Total Score: 0 04/22/19 24 8:35 AM EST documented as of this encounter Care Teams Shot Tube Machine Tender Relationship Specialty Start Date End Date Paul Olivarez MD [address] [place] [phone] PCP - General Internal Medicine 06/26/19 documented as of this encounter
--- OUTSIDE RECORDS SUMMARY | 2024-04-20 19:41 | XMS_ITS | Encounter Summary ---
Author Organization [employer] Address [address] [facility] [address] [place] [address] Care Team Providers Care Sketch Liner Name Role Phone Paul Olivarez MD Primary Care Prov ider Reason for Visit * Reason Onset Date Comments case back from lab? 06/09/2023 Encounter Details Date Type Department Care Team ([facility] st Contact Info) Description 06/09/2023 Telephone [facility] [address] [place] [address] Rhonda Kirkpatrick, [place] [address] [place] [address] case back from lab? Social History Tobacco [...] documented as of this encounter Care Teams Sketch Liner Relationship Specialty Start Date End Date Paul Olivarez MD [address] [place] [phone] PCP - General Internal Medicine 06/26/19 documented as of this encounter
--- OUTSIDE RECORDS SUMMARY | 2024-04-20 19:41 | XMS_ITS | Encounter Summary ---
Author Organization [employer] Address [address] [facility] [address] [place] [address] Care Team Providers Care Building Equipment Inspector Name Role Phone Paul Olivarez MD Primary Care Prov ider Encounter Details Date Type Department Care Team ([facility] st Contact Info) Description 04/11/2024 Orders Only [facility] MED & PEDS [address] [place] [address] Paul Olivarez MD [address] [place] [address] Social History Tobacco Use Types Packs/Day Years [...] t he electric, gas, oil or water [employer] threatened to shut off services in your [...] EST Narrative 04/15/2024 4:47 PM EST ? [facility] [place] ? [address] ?[place] [address] ? Mammography Report ? Signed ? Patient: CanelaJenn Baez ?MR#: [id number] ?? [id number] ? : 1970 ?Acct:[id number] ? Age/Sex: 53 / F ?ADM Date: 02/25/25 ? Loc: HO.MAMMO ? Attending Dr: Paul Brock MD ? Ordering Physician: Paul Olivarez MD ?Res ?? ults: 1Negative ? Date of Service: 04/11/24 ?Follow Up: 1 Year From Orig ?? inal Mammogram ? Procedure(s): MM tomosynthesis screening BI ?? Accession Number(s): [id number] ? cc: Paul Olivarez MD ? EXAMINATION: [...] DD/ 1310 ? TD/TT: 04/11/24 1325 ? Staffing Account Manager: ? Procedure Note Leah, Image - 04/15/2024 [facility] [address] [place], [place] [address] Mammography Report Signed Patient: Jenn BaxterMR#: [id number] : 1970Acct:[id number] Age/Sex: 53 / FADM Date: 04/11/24 Loc: HO.MAMMO Attending Dr: Paul Brock MD Ordering Physician: Paul Olivarez ults: 1Negative Date of Service: 04/11/24Follow Up: 1 Year From Orig ina Mammogram Procedure(s): MM tomosynthesis screening BI Accession Number(s): [id number] cc: Paul Olivarez MD EXAMINATION: MM SCREENING [...] 04/15/24 1644 DD/ 1310 TD/TT: 04/11/24 1325 Staffing Account Manager: us Paul Brock MD IMG BI PROCEDURES Final Result documented in this encounter Visit Diagnoses Not on filedocumented in this encounter Additional Health Concerns Assessment Noted Time PHQ-9 Depression Total Score: 0 04/22/19 24 8:35 AM EST documented as of this encounter Care Teams Building Equipment Inspector Relationship Specialty Start Date End Date Paul Olivarez, MD [address] [place] [phone] PCP - General Internal Medicine 06/26/19 documented as of this encounter
--- OUTSIDE RECORDS SUMMARY | 2024-04-20 19:41 | XMS_ITS | Encounter Summary ---
Author Organization [employer] Address [address] [facility] 7[address] [place] [address] Care Team Providers Care Dining Room Attendant Name Role Phone Paul Olivarez MD Primary Care Prov ider Reason for Visit * Reason Comments Med Refill Encounter Details Date Type Department Care Team ([facility] st Contact Info) Description 04/10/2024 Refill [facility] MED & PEDS [address] [place] [address] Parrish Del Rio MD [address] [place] [address] Contusion of soft tissue; Lumbar sprain, initial [...] documented as of this encounter Care Teams Dining Room Attendant Relationship Specialty Start Date End Date Paul Olivarez MD [address] [place] [phone] PCP - General Internal Medicine 06/26/19 documented as of this encounter
[2024-04-21 16:09] LABS: H Pylori Breath Test Negative (Negative)
== END 2024-04-20 12:21 | disposition home or self-care (01) ==
LOC: HO.LNP 12:20
PROVIDERS: PCP Internal Medicine; Visit Provider Internal Medicine Gastroenterology
DX: K29.70 Gastritis, unspecified, without bleeding (principal); K59.09 Other constipation; K57.30 Diverticulosis of large intestine without perforation or abscess without bleeding; K21.9 Gastro-esophageal reflux disease without esophagitis; R11.0 Nausea; R10.13 Epigastric pain; B96.81 Helicobacter pylori [H. pylori] as the cause of diseases classified elsewhere
CPT/HCPCS: 83013; 99212